=== PATIENT | female | born 1945 | race Caucasian/White ===

== ENCOUNTER 2017-08-06 15:09 | Inpatient (IN) | payer OTHER ==
[~2017-08-06] VITALS: Ht 160 cm; Wt 88.6 kg
[~2017-08-06 15:09] MED LIST: ADVIN25/60 INH; ALBU1AER9 INH; ALPR-411 PO; AMLO2.5T PO; ASPI-232 PO; ATOR10TA88 PO; ATV1 PO; BUPR100T5 PO; CALCTAB5 PO; CARI350T28 PO; CLOP1TAB15 PO; DOCU100C PO; GABA-113 PO; HYDR-3983 PO; LOSA1TAB38 PO; MAGN400T6 PO; METO50TA16 PO; MONT1TAB3 PO; MULT-506 PO; NXM/40 PO; RXC5 PO; TRAM-10 PO; ZNTT/150 PO
[2017-08-06 19:10] VITALS: BP 125/79; PULSE 76; TEMP 37.3; O2SAT 93
[2017-08-06] MEDS ORDERED: MAGNESIUM HYDROXIDE SUSP 30 ML UDC PO PRN (19:15)
[2017-08-06] MEDS ORDERED: POLYETHYLENE (MIRALAX) 17 GM PACK PO PRN (19:15)
[2017-08-06] MEDS ORDERED: ALUMINUM/MAGNESIUM/SIMETH (MAALOX MAX) 30 ML UDC PO PRN (19:15)
[2017-08-06] MEDS ORDERED: ALPRAZOLAM 0.5 MG TAB PO PRN (19:15)
[2017-08-06] MEDS ORDERED: ZOLPIDEM TARTRATE 5 MG TAB PO PRN (19:15)
[2017-08-06] MEDS ORDERED: NITROGLYCERIN 0.4 MG SL PER TAB CHARGE SL PRN (19:15)
[2017-08-06] MEDS ORDERED: ACETAMINOPHEN 325 MG TAB PO PRN (19:15)
[2017-08-06] MEDS ORDERED: ALBUTEROL HFA 8 GM INHALER INH PRN (19:15)
[2017-08-06] MEDS ORDERED: CARISOPRODOL 350 MG TAB PO PRN (19:15)
[2017-08-06] MEDS ORDERED: PATIENT'S HEIGHT AND/OR WEIGHT NEEDED SCH (19:30)
[2017-08-06] MEDS ORDERED: SODIUM CHLORIDE 0.9% 1000ML 1,000 ML IV SCH (19:30)
[2017-08-06] MEDS ORDERED: VANCOMYCIN INJ 1,000 MG in SODIUM CHLORIDE 0.9% 250ML 250 ML IV SCH ×2 (19:30→21:00)
[2017-08-06 19:32] VITALS: BP 124/77; PULSE 69; TEMP 36.8; O2SAT 98; Ht 160 cm; Wt 88.6 kg
[2017-08-06] MEDS ORDERED: GABA1CAP4 PO (19:35)
[2017-08-06] MEDS ORDERED: SYMIN160 INH (19:38)
[2017-08-06] MEDS ORDERED: ATRINS NEB (19:38)
[2017-08-06] MEDS ORDERED: TIOT1AER2 INH (19:38)
[2017-08-06] MEDS ORDERED: CHOL20007 PO (19:38)
--- NOTE | 2017-08-06 19:40 | DIAGNOSTIC IMAGING REPORT ---
CHEST ONE VIEW PORTABLE CLINICAL HISTORY: sob /CHEST TUBE PLACEMENT dyspnea. Tube position. COMPARISON STUDY: 04/15/2015 FINDINGS: Placement of a left-sided chest tube. Bulk of the tube appears to be extrathoracic. There is a kink in the tubing superior margin adjacent to the anterior aspect of left second rib. There is no evidence pneumothorax. Subcutaneous emphysematous changes are noted.. There is a parenchymal infiltrate left lung base. Lungs otherwise appear clear. IMPRESSION: Left-sided chest tube placement with the tube possibly outside of the chest wall cavity in the left. Kink of the tube at its superior margin. Considerable subcutaneous emphysematous change. Parenchymal infiltrate left base. This tube should be repositioned. The above report was generated using voice recognition software. It may contain grammatical, syntax or spelling errors. Electronically signed by: Brandon Unger M.D. 08/06/2017 7:39 PM Dictated Date/Time: 08/06/2017 7:37 PM
[2017-08-06] MEDS ORDERED: NURSING VERBAL MED ORDER ONE (19:45)
[2017-08-06 19:51] LABS: BASO % 0.3 %; BASO ABS # 0.04 K/uL (0-0.2); EOS % 2.5 %; HEMATOCRIT 37.4 % (37-47); IG% 0.3 %; MEAN CELL VOLUME 92.3 fL (80-100); MEAN CORPUSCULAR HEMOGLOBIN 31.9 pg (25-34); MEAN PLATELET VOLUME 9.2 fL (7.4-10.4); MONO % 7.7 %; NEUT % 74.2 %; PLATELET COUNT 328 K/uL (130-400); RED BLOOD COUNT 4.05 M/uL (4.2-5.4); WHITE BLOOD COUNT 15.33 K/uL (4.8-10.8)
[2017-08-06] MEDS: LORAZEPAM 1 MG TAB PO PRN (19:54)
[2017-08-06] MEDS ORDERED: MoRPHine SULFATE 2 MG/ML CARP IV PRN (20:00)
[2017-08-06] MEDS ORDERED: AZTREONAM CONSULT ACTIVE PRN ×2 (20:00)
[2017-08-06] MEDS ORDERED: AZTREONAM IV 2,000 MG in DEXTROSE 5% 100ML 100 ML IV SCH (20:00)
[2017-08-06] MEDS ORDERED: MoRPHine SULFATE 2 MG/ML CARP IV ONE (20:00)
[2017-08-06 20:01] LABS: PROTHROMBIN TIME (PATIENT) 10.7 SECONDS (9.0-12.0)
[2017-08-06 20:14] LABS: COMPLETE YES; MEAN CORPUSCULAR HGB CONC 34.5 g/dl (32-36)
[2017-08-06] MEDS ORDERED: CONSULT PHARMACY STA (20:16)
[2017-08-06 20:18] LABS: BUN/CREATININE RATIO 9.2 (10-20); CALCIUM 9.1 mg/dl (8.5-10.1); CREATININE 0.78 mg/dl (0.60-1.20); POTASSIUM 3.2 mmol/L (3.5-5.1)
[2017-08-06] MEDS ORDERED: HYDROmorphone INJ 0.5 MG/0.5 ML SYR IV ONE (20:30)
[2017-08-06] MEDS ORDERED: LEVALBUTEROL/IPRATROPIUM NEB INH SCH (21:00)
[2017-08-06] MEDS ORDERED: NICOTINE 14 MG/24 HR TDSY TD ONE (21:27)
--- NOTE | 2017-08-06 21:56 | History and Physical ---
History & Physical Date & Time of Service: Aug 06, 2017 at 21:56 Chief Complaint: Pneumothorax, Chest Tube, L Lung Absess Primary Care Physician: Kayla Villafana History of Present Illness Source: patient, clinic records, hospital records 71 year old female with history of CAD/CABG, HTN, COPD presenting with left sided chest pain. Patient was at her usual state of health until a few weeks ago when she started to have dry cough. She was then prescribed by her PCP a course of Prednisone and Azithromycin. As per patient, her symptoms have improved since then but then had increasing cough the past few days. Last night, the patient was coughing and suddenly had left sided chest pain - felt a like a pulled muscle so she applied Aspercream with some improvement. This morning the pain and cough persisted prompting consult at the [facility]. She was found to have by CXR a left sided pneumothorax with left loculated effusion. A chest tube was placed and patient requested transfer to [facility]. Patient received with stable VS, more than 90% on 2 liters nasal cannula. Repeat CXR showed : Left-sided chest tube placement with the tube possibly outside of the chest wall cavity in the left. Kink of the tube at its superior margin. Considerable subcutaneous emphysematous change. Parenchymal infiltrate left base. This tube should be repositioned. On exam, patient seen resting in bed, not in respiratory distress, no accessory muscles, speaks in sentences with no effort. Main symptom is pain on the chest tube insertion site. Denies other symptoms Past Medical/Surgical History Medical Problems: (1) Bronchitis Status: Chronic (2) Heart disease Status: Chronic (3) Hypertension Status: Chronic (4) Lumbar stenosis with neurogenic claudication Status: Resolved (5) Post-operative pain Status: Resolved (6) Stomach problems Status: Chronic Surgical Problems: (1) H/O heart surgery Status: Resolved (2) H/O laminectomy Status: Resolved (3) H/O: hysterectomy Status: Resolved Family History FH: diabetes mellitus FH: heart disease FH: hypertension FH: lung disease Social History Smoking Status: Current Every Day Smoker Smokeless Tobacco Use: No Alcohol Use: none Drug Use: none Marital Status: Housing status: lives with family Occupational Status: retired Allergies Coded Allergies: Cephalexin (Verified Allergy, Mild, Hives, 06/29/15) Adhesives (Verified Allergy, Unknown, RASH, 06/29/15) Penicillins (Verified Allergy, Unknown, ., 06/29/15) Sulfa Antibiotics (Verified Allergy, Unknown, ., 06/29/15) Vancomycin (Verified Allergy, Unknown, RASH, 08/06/17) Oxycodone (Verified Adverse Reaction, Unknown, itchy TO ROXICET. Takes oxycodone at home., 08/06/17) Home Medications Scheduled Amlodipine (Norvasc), 2.5 MG PO QAM Aspirin (Aspir-81), 81 MG PO HS Atorvastatin (Lipitor), 10 MG PO HS Budesonide/Formoterol Fumarate (Symbicort 160/4.5 Inhaler ), 2 PUFFS INH BID Cholecalciferol (Vitamin D3), 1 TAB PO DAILY Clopidogrel (Plavix), 75 MG PO QAM Docusate Sodium (Stool Softener), 200 MG PO DAILY Esomeprazole Magnesium (Nexium), 40 MG PO DAILY Gabapentin (Gabapentin), 1 CAP PO QID Ipratropium [place] (Ipratropium [place]), 1 VIAL NEB QID Losartan Potassium (Cozaar), 100 MG PO QAM Magnesium Oxide (Mag-Ox), 400 MG PO BID Metoprolol Tartrate (Lopressor) (Lopressor), 50 MG PO BID Montelukast Sodium (Singulair), 10 MG PO HS Multivitamin (Multivitamin), 1 TAB PO QAM Ranitidine (Zantac), 150 MG PO HS Scheduled PRN Albuterol (Proair Hfa), 2 PUFFS INH Q4 PRN for SOB/Wheezing Alprazolam (Alprazolam), 0.5 MG PO HS PRN for Anxiety Carisoprodol (Soma), 350 MG PO TID PRN for Muscle Spasms Oxycodone HCl (Oxycodone HCl), 5 MG PO Q4H PRN for moderate pain (pain scale 4-6 ) Miscellaneous Medications Tiotropium [place] (Spiriva Respimat), 1 PUFF INH Review of Systems Constitutional- no fever; no weight loss Eyes- no acute visual changes ENT- no sinus drainage; no pharyngitis Pulmonary- (+) as noted above Cardiac- no chest pain, no palpitations, no orthopnea, no dependent edema GI- no nausea, no vomiting, no diarrhea, no melena, no hematochezia - no dysuria, no hematuria Musculoskeletal- no arthralgias, no myalgias Derm- no rashes, no new skin lesions, no changing skin lesions Hematologic- no unusual bruising, no unusual bleeding Lymphatics- no adenopathy Endocrine- no polyuria or polydipsia; no heat or cold intolerance Neuro- no headaches, no focal neurologic symptoms Psych- no anxiety, no depression Physical Exam Vital Signs Date Time Temp Pulse Resp B/P (MAP) Pulse Ox O2 Delivery O2 Flow Rate FiO2 08/06/17 19:32 36.8 69 22 124/77 98 Nasal Cannula 2.0 08/06/17 19:10 37.3 76 21 125/79 (94) 93 Nasal Cannula 3.5 General Appearance: WD/WN, no apparent distress Head: normocephalic, atraumatic Eyes: normal inspection, EOMI, sclerae normal ENT: normal ENT inspection, hearing grossly normal, pharynx normal Neck: supple, no adenopathy, thyroid normal, no JVD, trachea midline Respiratory/Chest: + pertinent finding ((+) chest tube inserted on the left chest wall, no signs of active bleeding; (+) mild wheeze and rales bilateral bases right >left) Cardiovascular: regular rate, rhythm, no edema, no JVD, no murmur Abdomen/GI: normal bowel sounds, non tender, soft, no organomegaly Back: normal inspection, no CVA tenderness Extremities/Musculoskelatal: normal inspection, no calf tenderness, normal capillary refill, no pedal edema Neurologic/Psych: boiling off winder II-XII nml as tested, no motor/sensory deficits, alert, normal mood/affect, oriented x 3 Skin: normal color, warm/dry, no rash Lymphatic: no adenopathy Diagnostics Laboratory Results Results Past 24 Hours Test 08/06/17 19:02 08/06/17 19:31 08/06/17 19:37 Range/Units White Blood Count 15.33 4.8-10.8 K/uL Red Blood Count 4.05 4.2-5.4 M/uL Hemoglobin 12.9 12.0-16.0 g/dL Hematocrit 37.4 37-47 % Mean Corpuscular Volume 92.3 80-100 fL Mean Corpuscular Hemoglobin 31.9 25-34 pg Mean Corpuscular Hemoglobin Concent 34.5 32-36 g/dl Platelet Count 328 130-400 K/uL Mean Platelet Volume 9.2 7.4-10.4 fL Neutrophils (%) (Auto) 74.2 % Lymphocytes (%) (Auto) 15.0 % Monocytes (%) (Auto) 7.7 % Eosinophils (%) (Auto) 2.5 % Basophils (%) (Auto) 0.3 % Neutrophils # (Auto) 11.38 1.4-6.5 K/uL Lymphocytes # (Auto) 2.30 1.2-3.4 K/uL Monocytes # (Auto) 1.18 0.11-0.59 K/uL Eosinophils # (Auto) 0.38 0-0.5 K/uL Basophils # (Auto) 0.04 0-0.2 K/uL RDW Standard Deviation 45.3 36.4-46.3 fL RDW Coefficient of Variation 13.4 11.5-14.5 % Immature Granulocyte % (Auto) 0.3 % Immature Granulocyte # (Auto) 0.05 0.00-0.02 K/uL Prothrombin Time 10.7 9.0-12.0 SECONDS Prothromb Time International Ratio 1.0 0.9-1.1 Sodium Level 136 136-145 mmol/L Potassium Level 3.2 3.5-5.1 mmol/L Chloride Level 99 98-107 mmol/L Carbon Dioxide Level 29 21-32 mmol/L Anion Gap 8.0 3-11 mmol/L Blood Urea Nitrogen 7 7-18 mg/dl Creatinine 0.78 0.60-1.20 mg/dl Est Creatinine Clear Calc Drug Dose 69.2 ml/min Estimated GFR () 89.3 Estimated GFR (Non- 77.0 BUN/Creatinine Ratio 9.2 10-20 Random Glucose 121 70-99 mg/dl Calcium Level 9.1 8.5-10.1 mg/dl Total Bilirubin 0.6 0.2-1 mg/dl Aspartate Amino Transf (AST/SGOT) 13 15-37 U/L Alanine Aminotransferase (ALT/SGPT) 15 12-78 U/L Alkaline Phosphatase 102 45-117 U/L Total Protein 6.7 6.4-8.2 gm/dl Albumin 3.4 3.4-5.0 gm/dl Globulin 3.3 2.5-4.0 gm/dl Albumin/Globulin Ratio 1.0 0.9-2 Lactic Acid Level 1.1 0.4-2.0 mmol/L Microbiology Results 08/06/17 Blood Culture, Received Pending 08/06/17 Blood Culture, Received Pending 08/06/17 MRSA DNA Surveillance Screen, Ordered Pending 08/06/17 Gram Stain, Ordered Pending 08/06/17 Sputum Culture, Ordered Pending Diagnostic Radiology per H&P Impression Assessment and Plan 71 year old female with history of CAD/CABG, HTN, COPD presenting with left sided chest pain. LEFT SIDED PNEUMOTHORAX LEFT LOWER LOBE PNEUMONIA VS. EFFUSION - HD stable, maintaining adequate oxygenation on 2 liters NC no dyspnea - may need chest tube removal and reinsertion - discussed with Dr. Duncan CT chest stat ordered - will start Doxy + Aztreonam, Solumedrol 40mg q8h, Nebs q4h - monitor in Tele COPD - possible mild COPD exacerbation - management as noted above CAD/CABG - hold ASA, Plavix for chest tube insertion - continue Losartan, Metoprolol - hold Lasix for now HTN - continue Losartan, Metoprolol - hold Lasix for now DVT PROPHYLAXIS SCDs for now FULL CODE PER PATIENT DISPOSITION anticipate d/c home when medically stable Advanced Directives Existing Living Will: No Existing Power of Speech Therapist Technician: No VTE Prophylaxis VTE Risk Assessment Done? Y/N: Yes Risk Level: Moderate Given or contraindicated: SCD's
[2017-08-06] MEDS: METOPROLOL TARTRATE 50 MG TAB PO SCH (22:00)
[2017-08-06] MEDS ORDERED: METHYLPREDNISOLONE IV 40 MG in SYRINGE 0 ML IV SCH (22:00)
[2017-08-06] MEDS ORDERED: DOXYCYCLINE IV 100 MG in DEXTROSE 5% 100ML 100 ML IV SCH (22:00)
--- NOTE | 2017-08-06 22:00 | DIAGNOSTIC IMAGING REPORT ---
(CHEST) THORAX WITHOUT CT DOSE: 527.16 mGy.cm HISTORY: Tube position pneumothorax, s/p chest tube placement TECHNIQUE: Multiaxial CT images of the chest were performed without contrast. A dose lowering technique was utilized adhering to the principles of ALARA. COMPARISON: None. FINDINGS: There is a left-sided chest tube. The tube is extrinsic to the left chest wall. It contains a kink in its distal aspect as well as a kink medially deep to its insertion site. The entirety of the catheter is within the chest wall laterally. This catheter should be removed. There is a left-sided pneumothorax as well as a small left effusion. Estimated volume is approximately 30%. There is no significant cardiomediastinal silhouette shift. IMPRESSION: 1. Left-sided chest tube is located entirely within the subcutaneous fat and soft tissues of the chest wall itself.. 2. There is no evidence for extension of any component of tube to the chest cavity itself. 3. 30% left-sided pneumothorax. 4. Extensive subcutaneous emphysema over the left hemithorax. 5. The chest tube within the soft tissues contains at least 2 kinks 6. This tube should be removed 7. Small left effusion with partial left lower lobe atelectatic change. The above report was generated using voice recognition software. It may contain grammatical, syntax or spelling errors. Electronically signed by: Brandon Unger M.D. 08/06/2017 9:59 PM Dictated Date/Time: 08/06/2017 9:55 PM
[2017-08-06] MEDS: FLUTICASONE/SALMETEROL 250/50 (ADVAIR) 14 PUFF/1 INHALER INH SCH (22:18)
[2017-08-06] MEDS ORDERED: KETOROLAC TROMETHAMINE 15 MG/ML VIAL IV. STA (23:00)
[2017-08-06] MEDS ORDERED: LIDOCAINE HCL 2% LOCAL 50ML VIAL ONE (23:24)
[2017-08-06] MEDS ORDERED: MIDAZOLAM HCL 5 MG/ML 1 ML VIAL ONE (23:34)
[2017-08-07] VITALS (15 sets, daily range): BP systolic 124–168; BP diastolic 70–87; PULSE 68–88; TEMP 36.6–37.2; O2SAT 91–98
[2017-08-07] MEDS: METOPROLOL TARTRATE 50 MG TAB PO SCH ×3 (00:34→15:18)
[2017-08-07] MEDS: RANITIDINE HCL 150 MG TAB PO SCH ×2 (00:34→21:23)
[2017-08-07] MEDS: BuPROPion SR 100 MG TABCR PO SCH ×4 (00:34→21:00)
[2017-08-07] MEDS: GABAPENTIN 300 MG CAP PO SCH ×4 (00:35→21:23)
[2017-08-07] MEDS: MONTELUKAST SOD 10 MG TAB PO SCH ×2 (00:35→21:23)
[2017-08-07] MEDS: MAGNESIUM OXIDE 400 MG TAB PO SCH ×3 (00:35→21:23)
[2017-08-07] MEDS: ATORVASTATIN 10 MG TAB PO SCH ×2 (00:36→21:23)
--- NOTE | 2017-08-07 00:39 | Procedure Note ---
Procedure Note Date of Service Aug 07, 2017. Procedure Note Procedures: Chest tube left hemithorax Consent: obtained via the patient and placed into the chart Pre-Procedural Dx: Pneumothorax associated with pulmonary abscess Post-Procedural Dx: Pneumothorax associated with pulmonary abscess Analgesia: 12cc of 2% Liquid Lidocaine Procedure: The patient was initially placed in a right lateral decubitus position and chlorhexidine was used for sterilization. With this the initial chest tube the patient had was removed. The patient was then draped instead prepped in a sterile fashion. The initial incision site from the previous intervention was approximately 10centimeters in length. It was located along the anterior mid axillary line approximately the 7th intercostal space. Due to this I did use lidocaine slowly and then dissect through the fat muscular planes down to the rib. I then injected between the 7th and 8th rib and along the pleural surface. Was then able to introduce the Achilles into the thoracic cavity in heard a flush of air. Following this I placed a a 20 Persian chest tube in anterior lateral medial position to approximately 18 cm at the skin. I then used 0 silk along with 1 0 silk and then to ethylene/final sutures. These were placed in a vertical mattress style to close up the entire wound. EBL: 8 cc Complications: Postoperative chest x-ray showed chest tube in anterior medial direction with the lung re-expanded. No complications were noted.
--- NOTE | 2017-08-07 00:54 | Pulmonary Consultation ---
History General Date of Service: Aug 07, 2017. Stated Complaint: Pneumothorax, Chest Tube, L Lung Absess HPI The patient is a 71 year old female who presents to [facility] with complaints of Pneumothorax, Chest Tube, L Lung Absess. The patient' s primary care provider is Kayla Villafana. 71-year-old female who presented to [facility] with acute onset pleuritic-type chest pain was noted to have a spontaneous pneumothorax with associated pulmonary abscess. The patient had only giving complaining of the pleurisy and not notable shortness of breath. At the [facility] chest tube was inserted in the patient was then transferred to the [facility]. On evaluation with chest x-ray on her arrival it was noted that the chest tube did not appear to be within the thoracic cavity but external to the ribs. A noncontrast CT to was obtained in prove this to be the case. I then went to see the patient in during our interview she noted left- sided chest pain not pleuritic in nature but it did appear exacerbated with movement. She denied fever, chills, pleurisy, classic cardiac chest pain, productive cough or unintentional weight loss over the last 2-7 days. Workup WBC: 15K [Neut#: 11.38 & Bucks#1.18] Hgb: 13 Plt: 328 INR: 1.0 PT: 10.7 K+: 3.2 BUN: 7 Cr: 0.78 CXR 08/06/2017 compared to 04/15/2015 Subcutaneous air, left-sided chest tube kinked at the apices, questionable intra-thoracic placement, right hilar surgical clips, sternal wires UA: Pending Microbiology pending: MRSA nasal swab, blood x2, expectorated sputum Review of Systems Constitutional: reports: weakness Eyes: reports: no symptoms ENT: reports: no symptoms Cardiovascular: reports: as stated in HPI Respiratory: reports: as stated in HPI Gastrointestinal: reports: no symptoms Genitourinary - Female: reports: no symptoms Musculoskeletal: reports: as stated in HPI Integumentary: reports: other (Dry mouth) Neurologic: reports: no symptoms Psychiatric: reports: anxiety Hematologic / Lymphatic: no symptoms Allergic / Immunologic: no symptoms Past Medical History Past Medical History: 1. Spinal stenosis at L4-5 and L5-S1 2. COPD 3. Arthritis 4. Hypertension 5. GERD 6. Hypercholesterolemia 7. Seroma of the right leg 8. Atrial myxoma Past Surgical History: 1. Atrial myxoma resection and bypass x1 vessel 2. Back surgery 1992 3. Tonsillectomy 4. Hysterectomy 5. Lumbar decompression level L4-5 and L5-S1 6. Evacuation of seroma along with fusion and revision: L4-5 and L5-S1 (2014) 7. Revision with decompression: L3-4,L4-5<L5-S1 (05/13/2015) Family History FH: diabetes mellitus FH: heart disease FH: hypertension FH: lung disease Diabetes Coronary artery disease Alcoholism Mental disorders/Suicide Social History Hx Tobacco Use In Past Year?: Yes Smoking Status: Current Every Day Smoker Marital status: Housing status: lives with family Occupational Status: retired Allergies Coded Allergies: Cephalexin (Verified Allergy, Mild, Hives, 06/29/15) Adhesives (Verified Allergy, Unknown, RASH, 06/29/15) Penicillins (Verified Allergy, Unknown, ., 06/29/15) Sulfa Antibiotics (Verified Allergy, Unknown, ., 06/29/15) Vancomycin (Verified Allergy, Unknown, RASH, 08/06/17) Oxycodone (Verified Adverse Reaction, Unknown, itchy TO ROXICET. Takes oxycodone at home., 08/06/17) Current Medications Reported Home Medications Medications Dose Route/Sig Max Daily Dose Days Date Category Ipratropium [place] 0.5 Mg/2.5 Ml Nebu 1 Vial NEB QID 30 08/06/17 Reported Spiriva Respimat (Tiotropium [place]) 1.25 Mcg/Act Aer 1 Puff INH 08/06/17 Reported Symbicort 160/4.5 Inhaler (Budesonide/Formoterol Fumarate) Aero 2 Puffs INH BID 08/06/17 Reported Vitamin D3 (Cholecalciferol) 2,000 Unit Tab 1 Tab PO DAILY 30 08/06/17 Reported Gabapentin 300 Mg Cap 1 Cap PO QID 30 08/06/17 Reported Oxycodone HCl 5 Mg Tab 5 Mg PO Q4H PRN 07/01/15 Rx Stool Softener (Docusate Sodium) 100 Mg Cap 200 Mg PO DAILY 06/29/15 Reported Nexium (Esomeprazole Magnesium) 40 Mg Capcr 40 Mg PO DAILY 06/29/15 Reported Soma (Carisoprodol) 350 Mg Tab 350 Mg PO TID PRN 05/24/15 Reported Multivitamin (Multivitamins) Tab 1 Tab PO QAM 04/15/15 Reported Alprazolam 0.5 Mg Tab 0.5 Mg PO HS PRN 04/15/15 Reported Mag-Ox (Magnesium Oxide) 400 Mg Tab 400 Mg PO BID 04/15/15 Reported Zantac (Ranitidine HCl) 150 Mg Tab 150 Mg PO HS 04/15/15 Reported Lipitor (Atorvastatin Calcium) 10 Mg Tab 10 Mg PO HS 04/15/15 Reported Aspir-81 (Aspirin) 81 Mg Tab 81 Mg PO HS 04/15/15 Reported Singulair (Montelukast Sodium) 10 Mg Tab 10 Mg PO HS 04/15/15 Reported Proair Hfa (Albuterol) Aers 2 Puffs INH Q4 PRN 04/15/15 Reported Lopressor (Metoprolol Tartrate) 50 Mg Tab 50 Mg PO BID 04/15/15 Reported Plavix (Clopidogrel Bisulfate) 75 Mg Tab 75 Mg PO QAM 04/15/15 Reported Cozaar (Losartan Potassium) 100 Mg Tab 100 Mg PO QAM 04/15/15 Reported Norvasc (Amlodipine Besylate) 2.5 Mg Tab 2.5 Mg PO QAM 04/15/15 Reported Physical Physical Exam Vital Signs: Date Time Temp Pulse Resp B/P (MAP) Pulse Ox O2 Delivery O2 Flow Rate FiO2 08/06/17 19:32 36.8 69 22 124/77 98 Nasal Cannula 2.0 08/06/17 19:10 37.3 76 21 125/79 (94) 93 Nasal Cannula 3.5 General Appearance: uncomfortable, moderate distress Head: NORMOCEPHALIC, ATRAUMATIC Eyes: PERRLA, NO DISCHARGE, EOMI, SCLERAE NORMAL, CONJUNCTIVAE NORMAL ENT: NORMAL EAR EXAM, NORMAL NASAL EXAM, NORMAL MOUTH EXAM, NORMAL THROAT EXAM , NORMAL DENTAL EXAM Neck: NORMAL RANGE OF MOTION, NO TENDERNESS, TRACHEA MIDLINE, NO STRIDOR Respiratory: other (Clear to auscultation on the right side, decreased breath sounds on the left side with large 10-12 centimeter incision approximately 7th intercostal space between the mid axillary and 2-3 centimeters more medial than the anterior axillary line. There is no active signs of infection and no active bleeding) Cardiovasular: REGULAR RATE/RHYTHM, NORMAL S1S2, NO M/G/R, NO MURMUR, NO GALLOP Abdomen: NON TENDER, NORMAL BOWEL SOUNDS, NO REBOUND, NO MASSES, NO GUARDING, NO ORGANOMEGALY, NORMAL RECTAL EXAM Genitourinary - Female: EXTERNAL GENITALIA NORMAL Back: NORMAL INSPECTION, NO MIDLINE TENDERNESS, NO CVA TENDERNESS, NO PARAVERTEBRAL TTP Upper Extremities: NO EDEMA, NO DEFORMITY, NORMAL ROM Lower Extremities: NO EDEMA, NO DEFORMITY, NORMAL ROM Pulses: carotid (R) (2+), carotid (L) (2+), dorsalis pedis (R) (2+), dorsalis pedis (L) (2+) Neuro: ALERT, ORIENTED x 3, NORMAL MOTOR EXAM, NORMAL SENSATION Diagnostics Labs Results Past 24 Hours Test 08/06/17 19:31 08/06/17 19:37 Range/Units White Blood Count 15.33 4.8-10.8 K/uL Red Blood Count 4.05 4.2-5.4 M/uL Hemoglobin 12.9 12.0-16.0 g/dL Hematocrit 37.4 37-47 % Mean Corpuscular Volume 92.3 80-100 fL Mean Corpuscular Hemoglobin 31.9 25-34 pg Mean Corpuscular Hemoglobin Concent 34.5 32-36 g/dl Platelet Count 328 130-400 K/uL Mean Platelet Volume 9.2 7.4-10.4 fL Neutrophils (%) (Auto) 74.2 % Lymphocytes (%) (Auto) 15.0 % Monocytes (%) (Auto) 7.7 % Eosinophils (%) (Auto) 2.5 % Basophils (%) (Auto) 0.3 % Neutrophils # (Auto) 11.38 1.4-6.5 K/uL Lymphocytes # (Auto) 2.30 1.2-3.4 K/uL Monocytes # (Auto) 1.18 0.11-0.59 K/uL Eosinophils # (Auto) 0.38 0-0.5 K/uL Basophils # (Auto) 0.04 0-0.2 K/uL RDW Standard Deviation 45.3 36.4-46.3 fL RDW Coefficient of Variation 13.4 11.5-14.5 % Immature Granulocyte % (Auto) 0.3 % Immature Granulocyte # (Auto) 0.05 0.00-0.02 K/uL Prothrombin Time 10.7 9.0-12.0 SECONDS Prothromb Time International Ratio 1.0 0.9-1.1 Sodium Level 136 136-145 mmol/L Potassium Level 3.2 3.5-5.1 mmol/L Chloride Level 99 98-107 mmol/L Carbon Dioxide Level 29 21-32 mmol/L Anion Gap 8.0 3-11 mmol/L Blood Urea Nitrogen 7 7-18 mg/dl Creatinine 0.78 0.60-1.20 mg/dl Est Creatinine Clear Calc Drug Dose 69.2 ml/min Estimated GFR () 89.3 Estimated GFR (Non- 77.0 BUN/Creatinine Ratio 9.2 10-20 Random Glucose 121 70-99 mg/dl Calcium Level 9.1 8.5-10.1 mg/dl Total Bilirubin 0.6 0.2-1 mg/dl Aspartate Amino Transf (AST/SGOT) 13 15-37 U/L Alanine Aminotransferase (ALT/SGPT) 15 12-78 U/L Alkaline Phosphatase 102 45-117 U/L Total Protein 6.7 6.4-8.2 gm/dl Albumin 3.4 3.4-5.0 gm/dl Globulin 3.3 2.5-4.0 gm/dl Albumin/Globulin Ratio 1.0 0.9-2 Lactic Acid Level 1.1 0.4-2.0 mmol/L Microbiology Results 08/06/17 Blood Culture, Received Pending 08/06/17 Blood Culture, Received Pending 08/06/17 MRSA DNA Surveillance Screen, Ordered Pending 08/06/17 Gram Stain, Ordered Pending 08/06/17 Sputum Culture, Ordered Pending Diagnostic Radiology CXR 08/06/2017 compared to 04/15/2015 Subcutaneous air, left-sided chest tube kinked at the apices, questionable intra-thoracic placement, right hilar surgical clips, sternal wires Chest x-ray post procedure Chest tube in an anterior middle position with re-expansion of the left hemithorax Impression Assessment and Plan 71-year-old female with pulmonary abscess and associated pneumothorax: 1. Pneumothorax: Patient currently has a [address] in place with good re-expansion of the lung by chest x-ray. Will continue to monitor the patient for possible bronchopleural fistula. 2. Pulmonary Abscess: As the patient has a penicillin allergy the next drugs of choice would be carbapenem based such as imipenem are meropenem. At this time I will consult Infectious Disease for further guidance. Patient is currently treated with aztreonam. As well as consult in idea believe we should consult thoracic surgery as there is a high risk that this patient will require resection. 3. COPD: Patient does have a history of COPD currently treated with Advair, Singulair and Spiriva. In the hospital she is currently on methylprednisolone 40 mg every 8 hours. I will discontinue her methylprednisolone at this time she is not having an active COPD exacerbation and steroids might increase her risk of infection as well as create poor wound healing.
[2017-08-07] MEDS: OXYCODONE HCL IR 5 MG TAB (IMMEDIATE RELEASE) PO PRN ×4 (01:31→22:45)
[2017-08-07] MEDS ORDERED: NURSING VERBAL MED ORDER ONE ×3 (02:00→11:00)
[2017-08-07] MEDS ORDERED: MIDAZOLAM HCL 1 MG/ML 2ML VIAL IV STA (02:04)
[2017-08-07] MEDS ORDERED: LEVALBUTEROL 1.25MG/0.5ML NEB INH SCH (03:00)
[2017-08-07] MEDS ORDERED: IPRATROPIUM BROMIDE NEB SOLN 0.02% 2.5 ML VIAL INH SCH (03:00)
[2017-08-07] MEDS: IPRATROPIUM BROMIDE NEB SOLN 0.02% 2.5 ML VIAL INH SCH ×6 (03:20→23:07)
[2017-08-07] MEDS: LEVALBUTEROL 1.25MG/0.5ML NEB INH SCH ×6 (03:20→23:07)
[2017-08-07 05:41] LABS: HEMATOCRIT 38.2 % (37-47); MEAN CELL VOLUME 91.4 fL (80-100); MEAN CORPUSCULAR HEMOGLOBIN 30.6 pg (25-34); MEAN CORPUSCULAR HGB CONC 33.5 g/dl (32-36); MEAN PLATELET VOLUME 9.2 fL (7.4-10.4); PLATELET COUNT 323 K/uL (130-400); RED BLOOD COUNT 4.18 M/uL (4.2-5.4); WHITE BLOOD COUNT 14.28 K/uL (4.8-10.8)
[2017-08-07] MEDS ORDERED: AZTREONAM IV 1,000 MG in DEXTROSE 5% 100ML 100 ML IV SCH (06:00)
[2017-08-07] MEDS: KETOROLAC TROMETHAMINE 15 MG/ML VIAL IV. SCH ×3 (06:16→17:57)
[2017-08-07 06:17] LABS: BUN/CREATININE RATIO 12.4 (10-20); CALCIUM 9.1 mg/dl (8.5-10.1); CREATININE 0.8 mg/dl (0.60-1.20); MAGNESIUM 1.8 mg/dl (1.8-2.4); POTASSIUM 3.6 mmol/L (3.5-5.1)
[2017-08-07] MEDS ORDERED: IMIPENEM/CILASTATIN CONSULT ACTIVE PRN (06:24)
--- NOTE | 2017-08-07 06:58 | DIAGNOSTIC IMAGING REPORT ---
CHEST ONE VIEW PORTABLE CLINICAL HISTORY: 71 years-old Female presenting with chest tube placement . TECHNIQUE: Portable upright AP view of the chest was obtained. COMPARISON: 08/06/2017. FINDINGS: Median sternotomy wires intact. Atherosclerosis of the aortic arch. Cardiac silhouette grossly normal allowing for partial obscuration of the apex. Surgical clips project over the right mid lung. The previously noted large bore left pleural drain has been replaced or repositioned, now terminating in the paramediastinal left apex. Associated extensive soft tissue emphysema along the left lateral chest wall and left base of the neck. Trace left apical pneumothorax persists. Extensive left basilar opacity stable to slightly increased from prior. Right lung and pleural space clear. Osseous structures normal. Upper abdomen normal. IMPRESSION: 1. Interval replacement or repositioning of the large bore left pleural drain, which now terminates appropriately near the left apex. Trace left pneumothorax persists. 2. Stable to slightly increased left basilar opacity concerning for pneumonia. Electronically signed by: Chi Gonzalez M.D. 08/07/2017 6:57 AM Dictated Date/Time: 08/07/2017 6:54 AM
--- NOTE | 2017-08-07 07:15 | DIAGNOSTIC IMAGING REPORT ---
CHEST ONE VIEW PORTABLE CLINICAL HISTORY: PNEUMOTHORAX COMPARISON STUDY: 08/07/2017 FINDINGS: There are postsurgical changes of a midline sternotomy. The left-sided pleural drain remains unchanged in position. There is persistent left-sided subcutaneous emphysema. No pneumothorax is visualized. Left basal airspace opacities persist the right lung remains clear[ IMPRESSION: 1. No significant change in the position of the left-sided pleural drain, the tip of which projects over the aortic arch 2. No pneumothorax identified 3. Persistent left-sided subcutaneous emphysema 4. Persistent left basilar airspace opacities Electronically signed by: Aiden Roe M.D. 08/07/2017 7:13 AM Dictated Date/Time: 08/07/2017 7:11 AM
[2017-08-07] MEDS ORDERED: IMIPENEM/CILASTATIN IV 400 MG in DEXTROSE 5% 100ML 100 ML IV SCH (08:00)
[2017-08-07] MEDS: FLUTICASONE/SALMETEROL 250/50 (ADVAIR) 14 PUFF/1 INHALER INH SCH ×2 (08:21→21:00)
[2017-08-07] MEDS: CALCIUM 600MG + VIT D 400 IU TAB PO SCH (08:25)
[2017-08-07] MEDS: MULTIVITAMIN TAB PO SCH (08:25)
[2017-08-07] MEDS: PANTOprazole SOD 40 MG TAB PO SCH (08:25)
[2017-08-07] MEDS: DOCUSATE SODIUM 100 MG CAP PO SCH (08:26)
[2017-08-07] MEDS: LOSARTAN POTASSIUM 50 MG TAB PO SCH (08:27)
[2017-08-07] MEDS: TIOTROPIUM BROMIDE 5 PUFF/90 MCG INH INH SCH (08:28)
[2017-08-07] MEDS: NICOTINE 14 MG/24 HR TDSY TD SCH (08:29)
[2017-08-07] MEDS ORDERED: AMLODIPINE BESYLATE 5 MG TAB PO SCH (09:00)
--- NOTE | 2017-08-07 10:37 | Progress Note ---
Progress Note Date of Service Aug 07, 2017. Progress Note ID Consult Dictated #[id number] A/P: 1. L Effusion - ? infectious -Continue abx, follow culture results -Will follow, thank you
--- NOTE | 2017-08-07 12:42 | Progress Note ---
Internal Med Progress Note Date of Service: Aug 07, 2017. Provider Documentation: SUBJECTIVE: pt found sitting on chair Chest tube repositioned last night denies of any SOB or pain has mild achy discomfort and pain on back chest tube site much improved form the discomfort she had since the initial chest tube no fever or chills has non productive cough OBJECTIVE: Vital Signs-as noted below Exam: General-pleasant , no sign of distress Eyes-sclera non icteric ENT-NAD Neck-no JVD Lungs-diminished, chest tube placed on left side Heart-regular Abdomen-soft, non tender Extremities-no lower ext edema Neuro-AAO x3, no focal deficit Lab data as noted below. ASSESSMENT & PLAN: 71 year old female with history of CAD/CABG, HTN, COPD presenting with left sided chest pain. LEFT SIDED PNEUMOTHORAX LEFT LOWER LOBE PNEUMONIA VS. EFFUSION - chest tube re adjusted last night as initial Chest tube placed in [place] [facility] showed -displaced out of lung cavity , significant left sided sub cutaneous emphysema pt was experiencing severe chest discomfort CT chest shows : 1. Left-sided chest tube is located entirely within the subcutaneous fat and soft tissues of the chest wall itself.. 2. There is no evidence for extension of any component of tube to the chest cavity itself. 3. 30% left-sided pneumothorax. 4. Extensive subcutaneous emphysema over the left hemithorax. 5. The chest tube within the soft tissues contains at least 2 kinks 6. This tube should be removed 7. Small left effusion with partial left lower lobe atelectatic change. appreciate input form Pulmonology Dr Duncan , chest tube repositioned last night -repeat Cxray shows -chest tube in adequate position pt offers no discomfort , concern for loculated infection on left lower lung lobe CT surgery consulted abx coverage broadened to add Imipenem blood culture ordered ID eval requested COPD - hx of chronic tobacco use with underlying emphysema used Symbicort and Spiriva -continued pt mention of sudden onset of left sided chest chest pain with cough possible bullae rupture causing pneumothorax ? has chest tube placement now pulmonology and CT surgery following pt is counselled repeatedly for smoking cessation CAD/CABG - hold ASA, Plavix for chest tube insertion - continue Losartan, Metoprolol - hold Lasix for now in setting of pulmonary infection HTN - continue Losartan, Metoprolol - DVT PROPHYLAXIS SCDs for now-chest tube in position FULL CODE PER PATIENT DISPOSITION anticipate d/c home when medically stable will need PT/OT eval prior to discharge follows with Family practice at [place] area would like to follow up with Pulmonology Dr Duncan in [place] appropriate referral /follow up will be arranged on discharge Vital Signs: Date Time Temp Pulse Resp B/P (MAP) Pulse Ox O2 Delivery O2 Flow Rate FiO2 08/07/17 12:33 36.7 70 20 124/74 (91) 95 Nasal Cannula 4.0 08/07/17 11:13 70 15 94 Nasal Cannula 4.0 08/07/17 08:00 Nasal Cannula 2.0 08/07/17 07:41 36.6 83 20 131/84 (100) 94 Nasal Cannula 2.5 08/07/17 07:16 83 17 91 Nasal Cannula 2.0 08/07/17 04:15 Nasal Cannula 2.0 08/07/17 04:03 36.6 76 18 135/77 (96) 92 Nasal Cannula 2.5 08/07/17 03:21 76 16 98 Nasal Cannula 2.0 08/07/17 00:15 95 Nasal Cannula 2.0 08/07/17 00:15 37.2 88 20 146/87 (106) 92 Nasal Cannula 4.0 08/06/17 19:32 36.8 69 22 124/77 98 Nasal Cannula 2.0 08/06/17 19:10 37.3 76 21 125/79 (94) 93 Nasal Cannula 3.5 Lab Results: Results Past 24 Hours Test 08/06/17 19:31 08/06/17 19:37 08/07/17 05:18 Range/Units White Blood Count 15.33 14.28 4.8-10.8 K/uL Red Blood Count 4.05 4.18 4.2-5.4 M/uL Hemoglobin 12.9 12.8 12.0-16.0 g/dL Hematocrit 37.4 38.2 37-47 % Mean Corpuscular Volume 92.3 91.4 80-100 fL Mean Corpuscular Hemoglobin 31.9 30.6 25-34 pg Mean Corpuscular Hemoglobin Concent 34.5 33.5 32-36 g/dl Platelet Count 328 323 130-400 K/uL Mean Platelet Volume 9.2 9.2 7.4-10.4 fL Neutrophils (%) (Auto) 74.2 % Lymphocytes (%) (Auto) 15.0 % Monocytes (%) (Auto) 7.7 % Eosinophils (%) (Auto) 2.5 % Basophils (%) (Auto) 0.3 % Neutrophils # (Auto) 11.38 1.4-6.5 K/uL Lymphocytes # (Auto) 2.30 1.2-3.4 K/uL Monocytes # (Auto) 1.18 0.11-0.59 K/uL Eosinophils # (Auto) 0.38 0-0.5 K/uL Basophils # (Auto) 0.04 0-0.2 K/uL RDW Standard Deviation 45.3 44.6 36.4-46.3 fL RDW Coefficient of Variation 13.4 13.4 11.5-14.5 % Immature Granulocyte % (Auto) 0.3 % Immature Granulocyte # (Auto) 0.05 0.00-0.02 K/uL Prothrombin Time 10.7 9.0-12.0 SECONDS Prothromb Time International Ratio 1.0 0.9-1.1 Sodium Level 136 134 136-145 mmol/L Potassium Level 3.2 3.6 3.5-5.1 mmol/L Chloride Level 99 98 98-107 mmol/L Carbon Dioxide Level 29 29 21-32 mmol/L Anion Gap 8.0 7.0 3-11 mmol/L Blood Urea Nitrogen 7 10 7-18 mg/dl Creatinine 0.78 0.80 0.60-1.20 mg/dl Est Creatinine Clear Calc Drug Dose 69.2 67.4 ml/min Estimated GFR () 89.3 86.6 Estimated GFR (Non- 77.0 74.7 BUN/Creatinine Ratio 9.2 12.4 10-20 Random Glucose 121 169 70-99 mg/dl Calcium Level 9.1 9.1 8.5-10.1 mg/dl Total Bilirubin 0.6 0.2-1 mg/dl Aspartate Amino Transf (AST/SGOT) 13 15-37 U/L Alanine Aminotransferase (ALT/SGPT) 15 12-78 U/L Alkaline Phosphatase 102 45-117 U/L Total Protein 6.7 6.4-8.2 gm/dl Albumin 3.4 3.4-5.0 gm/dl Globulin 3.3 2.5-4.0 gm/dl Albumin/Globulin Ratio 1.0 0.9-2 Lactic Acid Level 1.1 0.4-2.0 mmol/L Magnesium Level 1.8 1.8-2.4 mg/dl Microbiology Results 08/06/17 Blood Culture, Received Pending 08/06/17 Blood Culture, Received Pending 08/06/17 Gram Stain - Final, Resulted 08/06/17 Sputum Culture - Preliminary, Resulted NO GROWTH
--- NOTE | 2017-08-07 12:55 | INFECT. DISEASE CONSULTATION ---
DATE OF CONSULTATION: 08/07/2017 REQUESTING PHYSICIAN: Dr. Ace. HISTORY OF PRESENT ILLNESS: This is a 71-year-old female who was transferred here from the Emergency Room at [facility]. She states that she recently had worsening cough and shortness of breath. She was followed by her primary care physician and her COPD medications were changed to Spiriva and Symbicort. She did have some sore throat over the past few days and she did follow up with her family physician, who put her on a prednisone taper as well as a Z-DIOMEDES. She was tolerating this well when she had worsening cough yesterday and had a one-time episode of hemoptysis. She called her daughter who is a nurse and it was suggested that she go to the hospital for further evaluation. It appears that she did have imaging while in the hospital at [place] which did show effusion on x-ray which I do not have records for. For this reason, it was decided that a chest tube would be placed on the left side. This was done at [facility] yesterday. After this was done, she had worsening pain which radiates to the back and to the shoulder. Because of this, a chest x-ray was repeated which showed pneumothorax. She then was transferred to [facility] for additional care. She did undergo a CAT scan of the chest here which showed 30% pneumothorax and a chest tube that was kinked. She was followed by pulmonary and the chest tube was removed and a new chest tube was placed and the fluid was sent for culture, results of this are pending. She was placed empirically on imipenem and vancomycin. She has been afebrile and denies having any fevers prior to admission to the hospital. Yesterday, she did have a white blood cell count of 15 and this has improved to 14. On my examination, she is out of bed to chair and states overall she is feeling much better. She does admit to having some residual pain in her left shoulder, but otherwise states she feels well. She continues to deny any fevers or chills. She has had no additional cough or hemoptysis. She denies any chest pain or pleuritic chest pain. Her appetite has been stable at home. She has not had any sick contacts. She denies any nausea, vomiting or diarrhea. All remaining review of systems is reviewed and is unremarkable. She appears to be tolerating antibiotics well. PAST MEDICAL HISTORY: Significant for chronic bronchitis, coronary artery disease, hypertension, COPD. PAST SURGICAL HISTORY: Significant for CABG, laminectomy and hysterectomy. She has also had tonsillectomy many years ago. FAMILY HISTORY: Noncontributory. SOCIAL HISTORY: Significant for daily tobacco use. She denies any alcohol or drug use. She is and lives with her . She denies any recent sick contacts. ALLERGIES: She HAS ALLERGIES TO CEPHALOSPORINS, ADHESIVE TAPE, PENICILLIN, SULFA, VANCOMYCIN; however, she did tolerate this AND OXYCODONE. CURRENT MEDICATIONS: Include nicotine patch, Lopressor, Norvasc, Colace, Cozaar, multivitamins, calcium, vitamin D, Protonix, Spiriva, imipenem, Toradol, morphine, Atrovent, Xopenex, Lipitor, Wellbutrin, Advair, Neurontin, magnesium, Singulair, Zantac, Dilaudid, Tylenol, Maalox, milk of magnesia, Ambien, MiraLax, albuterol, Xanax, Soma, Percocet, Ativan, Roxicodone and Ultram. PHYSICAL EXAMINATION: VITAL SIGNS: She has been afebrile since admission to the hospital, pulse 83, respiratory rate 20, blood pressure is 131/84, and oxygen saturation is 94-98% on 2 liters. GENERAL: She is awake, alert and oriented x3. She is in no acute distress. HEENT: Mucous membranes are dry. Extraocular muscles are intact. HEART: Regular. LUNGS: Decreased on the left. The chest tube is in place with minimal serosanguineous fluid. ABDOMEN: Soft, nontender and nondistended. EXTREMITIES: There is no lower extremity edema bilaterally. SKIN: Without rash. LABORATORY AND IMAGING STUDIES: CBC today reveals a white blood cell count of 14.2, hemoglobin 12.8 and platelets of 323. Chemistry panel reveals sodium of 134, potassium 3.6, chloride 98, bicarbonate 29, BUN 10, creatinine 0.8 and glucose is 169. LFTs are within normal limits. Blood cultures from the 10th are pending. A specimen obtained at that time, a chest tube exchange has moderate white blood cells but no organisms. Chest x-ray done this morning shows no significant change in the position. No pneumothorax identified. Persistent left-sided subcutaneous emphysema and a persistent left lower lobe infiltrate. CAT scan of the chest done on arrival yesterday and shows a left-sided chest tube with multiple kinks, 30% pneumothorax, no evidence of abscess was noted at that time. ASSESSMENT AND PLAN: Effusion, question infectious in etiology as she will be maintained on broad spectrum antibiotics pending the results of blood as well as pleural fluid cultures. She is currently afebrile and hemodynamically stable, and we will follow along with you. Thank you for this consultation.
--- NOTE | 2017-08-07 13:35 | DIAGNOSTIC IMAGING REPORT ---
CHEST ONE VIEW PORTABLE CLINICAL HISTORY: Chest tube placement. COMPARISON STUDY: Earlier in the day FINDINGS: There are postsurgical changes of a midline sternotomy. The left-sided pleural drainage catheter remains unchanged in position. There is subcutaneous emphysema on the left. No significant pneumothorax is visualized. There is slight improvement in the left basal airspace opacities.[ IMPRESSION: 1. No change in position of the left-sided chest tube. No significant pneumothorax. Left-sided subcutaneous emphysema 2. Slight improvement in the left basilar airspace opacities Electronically signed by: Aiden Roe M.D. 08/07/2017 1:34 PM Dictated Date/Time: 08/07/2017 1:33 PM
--- NOTE | 2017-08-07 14:52 | Pulmonology Progress Note ---
Pulmonary Progress Note Date of Service Aug 07, 2017. Attending Dr. English Subjective Patient seen and examined at bedside. She is complaining of left sided chest pain. She denies any dyspnea, but still continues to have dry nonproductive cough. Objective VS reviewed Lungs: coarse crackles b/l bases, left chest tube in place + air leak present Abd: soft/NT/ND BS+ Ext:no edema b/l, no cyanosis, no clubbing. Labs reviewed. Blood culture 08/06/2017--pending Sputum 08/06--no growth Medications reviewed. Imaging viewed by me. CXR 08/07/2017 12 pm IMPRESSION: 1. No change in position of the left-sided chest tube. No significant pneumothorax. Left-sided subcutaneous emphysema 2. Slight improvement in the left basilar airspace opacities CXR 08/07/2017 8 am IMPRESSION: 1. No significant change in the position of the left-sided pleural drain, the tip of which projects over the aortic arch 2. No pneumothorax identified 3. Persistent left-sided subcutaneous emphysema 4. Persistent left basilar airspace opacities CXR 08/07/2017 IMPRESSION: 1. Interval replacement or repositioning of the large bore left pleural drain, which now terminates appropriately near the left apex. Trace left pneumothorax persists. 2. Stable to slightly increased left basilar opacity concerning for pneumonia. CT chest 08/07/2017 IMPRESSION: 1. Left-sided chest tube is located entirely within the subcutaneous fat and soft tissues of the chest wall itself.. 2. There is no evidence for extension of any component of tube to the chest cavity itself. 3. 30% left-sided pneumothorax. 4. Extensive subcutaneous emphysema over the left hemithorax. 5. The chest tube within the soft tissues contains at least 2 kinks 6. This tube should be removed 7. Small left effusion with partial left lower lobe atelectatic change. Assessment & Plan Left Pulmonary Abscess Left secondary spontaneous pneumothorax COPD Left pneumothorax appears to have resolved. There still appears to be a small persistent air leak, suggestive of bronchopleural fistula. I spoke with Drs. Duncan and Bob this morning. Dr. Harper plans to take patient to the OR for possible segmentectomy of this pulmonary abscess on Monday. Continue with broad spectrum antibiotics. ID has been consulted and is following. Blood cultures are still pending. Continue with Advair, Singulair and Spiriva for COPD maintenance therapy. She is not in acute exacerbation. Continue with supplemental oxygenation and adequate pain control. Will continue to follow with you. Data Medications: Current Inpatient Medications Medications (Trade) Dose Ordered Sig/Kaylee Route Start Time Stop Time Status Last Admin Dose Admin Acetaminophen (Tylenol Tab) 650 mg Q4H PRN PO 08/06/17 19:15 09/05/17 19:14 Al Hydrox/Mg Hydrox/Simethicone (Maalox Max Susp) 15 ml Q4H PRN PO 08/06/17 19:15 09/05/17 19:14 Magnesium Hydroxide (Milk Of Magnesia Susp) 30 ml Q12H PRN PO 08/06/17 19:15 09/05/17 19:14 Zolpidem Tartrate (Ambien Tab) 5 mg HSZ PRN PO 08/06/17 19:15 09/05/17 19:14 Ondansetron HCl (Zofran Inj) 4 mg Q6H PRN IV 08/06/17 19:15 09/05/17 19:14 Nitroglycerin (Nitrostat Tab) 0.4 mg UD PRN SL 08/06/17 19:15 09/05/17 19:14 Polyethylene (Miralax Powder Packet) 17 gm DAILY PRN PO 08/06/17 19:15 09/05/17 19:14 Albuterol (Ventolin Hfa Inhaler) 2 puffs Q4 PRN INH 08/06/17 19:15 09/05/17 19:14 Alprazolam (Xanax Tab) 0.5 mg HS PRN PO 08/06/17 19:15 09/05/17 19:14 Atorvastatin Calcium (Lipitor Tab) 10 mg HS PO 08/06/17 21:00 09/05/17 20:59 08/07/17 00:36 10 MG Bupropion HCl (Wellbutrin-Sr Tab) 100 mg BID PO 08/06/17 21:00 09/05/17 20:59 Carisoprodol (Soma Tab) 350 mg TID PRN PO 08/06/17 19:15 09/05/17 19:14 Docusate Sodium (coLACE CAP) 200 mg DAILY PO 08/07/17 09:00 09/06/17 08:59 08/07/17 08:26 200 MG Salmeterol Xinafoate/ Fluticasone (Advair Diskus 250/50 Inh) 1 puff BID INH 08/06/17 21:00 09/05/17 20:59 08/06/17 22:18 1 PUFF Gabapentin (Neurontin Cap) 300 mg TID PO 08/06/17 21:00 09/05/17 20:59 08/07/17 08:24 300 MG Acetaminophen/ Hydrocodone Bitart ([place] 7.5/325 Tab) 1 tab Q6 PRN PO 08/06/17 19:15 08/20/17 19:14 Lorazepam (Ativan Tab) 1 mg Q8H PRN PO 08/06/17 19:15 09/05/17 19:14 08/06/17 19:54 1 MG Losartan Potassium (coZAAR TAB) 100 mg QAM PO 08/07/17 09:00 09/06/17 08:59 08/07/17 08:27 100 MG Magnesium Oxide (Mag-Ox Tab) 400 mg BID PO 08/06/17 21:00 09/05/17 20:59 08/07/17 08:24 400 MG Montelukast Sodium (Singulair Tab) 10 mg HS PO 08/06/17 21:00 09/05/17 20:59 08/07/17 00:35 10 MG Multivitamins (Multivitamin Tab) 1 tab QAM PO 08/07/17 09:00 09/06/17 08:59 08/07/17 08:25 1 TAB Oxycodone HCl (Roxicodone Immediate Rel Tab) 5 mg Q4H PRN PO 08/06/17 19:15 08/20/17 19:14 08/07/17 08:21 5 MG Ranitidine HCl (zANTac TAB) 150 mg HS PO 08/06/17 21:00 09/05/17 20:59 08/07/17 00:34 150 MG Tramadol HCl (Ultram Tab) 50 mg TID PRN PO 08/06/17 19:15 09/05/17 19:14 Calcium/Vitamin D (Caltrate Plus Tab) 1 tab QAM PO 08/07/17 09:00 09/06/17 08:59 08/07/17 08:25 1 TAB Pantoprazole Sodium (Protonix Tab) 40 mg DAILY PO 08/07/17 09:00 09/06/17 08:59 08/07/17 08:25 40 MG Morphine Sulfate (MoRPHine SULFATE INJ) 4 mg Q4H PRN IV 08/07/17 00:00 08/20/17 19:59 Hydromorphone HCl (Dilaudid Inj) 0.5 mg Q4H PRN IV 08/06/17 21:00 08/20/17 20:59 Nicotine (Nicoderm Cq 14MG Patch) 1 patch QAM TD 08/07/17 09:00 09/06/17 08:59 08/07/17 08:29 1 PATCH Miscellaneous (Remove Nicoderm Patch) 1 ea HS N/A 08/07/17 21:00 09/06/17 20:59 Ipratropium [place] (Atrovent 0.02% 0.5MG/2.5ML Neb) 0.5 mg Q4R INH 08/07/17 00:00 09/06/17 00:00 08/07/17 11:10 0.5 MG Levalbuterol (Xopenex 1.25MG/ 0.5ML Neb) 1.25 mg Q4R INH 08/07/17 00:00 09/06/17 00:00 08/07/17 11:10 1.25 MG Tiotropium [place] (Spiriva Handihaler Inhaler) 1 puff QAM INH 08/07/17 09:00 09/06/17 08:59 08/07/17 08:28 1 PUFF Ketorolac Tromethamine (Toradol Inj) 15 mg Q6H IV. 08/07/17 06:00 08/09/17 05:59 08/07/17 12:18 15 MG Imipenem/ Cilastatin Sodium (Consult) 1 ea DAILY PRN N/A 08/07/17 06:24 09/06/17 06:23 Metoprolol Tartrate (Lopressor Tab) 50 mg BID@0630,1600 PO 08/07/17 16:00 09/06/17 15:59 Budesonide/ Formoterol Fumarate (Symbicort 80/ 4.5 Inh) 2 puffs BID INH 08/07/17 11:30 09/06/17 11:29 Imipenem/ Cilastatin Sodium 500 mg/Dextrose 110 ml @ 110 mls/hr Q6@0400,1000,1600,2200 IV 08/07/17 16:00 08/14/17 15:59 Vital Signs: Date Time Temp Pulse Resp B/P (MAP) Pulse Ox O2 Delivery O2 Flow Rate FiO2 08/07/17 12:33 36.7 70 20 124/74 (91) 95 Nasal Cannula 4.0 08/07/17 12:00 Nasal Cannula 2.0 08/07/17 11:13 70 15 94 Nasal Cannula 4.0 08/07/17 08:00 Nasal Cannula 2.0 08/07/17 07:41 36.6 83 20 131/84 (100) 94 Nasal Cannula 2.5 08/07/17 07:16 83 17 91 Nasal Cannula 2.0 08/07/17 04:15 Nasal Cannula 2.0 08/07/17 04:03 36.6 76 18 135/77 (96) 92 Nasal Cannula 2.5 08/07/17 03:21 76 16 98 Nasal Cannula 2.0 08/07/17 00:15 95 Nasal Cannula 2.0 08/07/17 00:15 37.2 88 20 146/87 (106) 92 Nasal Cannula 4.0 08/06/17 19:32 36.8 69 22 124/77 98 Nasal Cannula 2.0 08/06/17 19:10 37.3 76 21 125/79 (94) 93 Nasal Cannula 3.5 Laboratory Results: Last 24 Hours Test 08/06/17 19:31 08/06/17 19:37 08/07/17 05:18 White Blood Count 15.33 K/uL 14.28 K/uL Red Blood Count 4.05 M/uL 4.18 M/uL Hemoglobin 12.9 g/dL 12.8 g/dL Hematocrit 37.4 % 38.2 % Mean Corpuscular Volume 92.3 fL 91.4 fL Mean Corpuscular Hemoglobin 31.9 pg 30.6 pg Mean Corpuscular Hemoglobin Concent 34.5 g/dl 33.5 g/dl Platelet Count 328 K/uL 323 K/uL Mean Platelet Volume 9.2 fL 9.2 fL Neutrophils (%) (Auto) 74.2 % Lymphocytes (%) (Auto) 15.0 % Monocytes (%) (Auto) 7.7 % Eosinophils (%) (Auto) 2.5 % Basophils (%) (Auto) 0.3 % Neutrophils # (Auto) 11.38 K/uL Lymphocytes # (Auto) 2.30 K/uL Monocytes # (Auto) 1.18 K/uL Eosinophils # (Auto) 0.38 K/uL Basophils # (Auto) 0.04 K/uL RDW Standard Deviation 45.3 fL 44.6 fL RDW Coefficient of Variation 13.4 % 13.4 % Immature Granulocyte % (Auto) 0.3 % Immature Granulocyte # (Auto) 0.05 K/uL Prothrombin Time 10.7 SECONDS Prothromb Time International Ratio 1.0 Sodium Level 136 mmol/L 134 mmol/L Potassium Level 3.2 mmol/L 3.6 mmol/L Chloride Level 99 mmol/L 98 mmol/L Carbon Dioxide Level 29 mmol/L 29 mmol/L Anion Gap 8.0 mmol/L 7.0 mmol/L Blood Urea Nitrogen 7 mg/dl 10 mg/dl Creatinine 0.78 mg/dl 0.80 mg/dl Est Creatinine Clear Calc Drug Dose 69.2 ml/min 67.4 ml/min Estimated GFR () 89.3 86.6 Estimated GFR (Non- 77.0 74.7 BUN/Creatinine Ratio 9.2 12.4 Random Glucose 121 mg/dl 169 mg/dl Calcium Level 9.1 mg/dl 9.1 mg/dl Total Bilirubin 0.6 mg/dl Aspartate Amino Transf (AST/SGOT) 13 U/L Alanine Aminotransferase (ALT/SGPT) 15 U/L Alkaline Phosphatase 102 U/L Total Protein 6.7 gm/dl Albumin 3.4 gm/dl Globulin 3.3 gm/dl Albumin/Globulin Ratio 1.0 Lactic Acid Level 1.1 mmol/L Magnesium Level 1.8 mg/dl
[2017-08-07] MEDS: BUDESONIDE/FORMOTEROL FUMARATE 80/4.5 60 PUFFS/INHALER INH SCH ×2 (15:22→21:23)
[2017-08-07] MEDS: IMIPENEM/CILASTATIN IV 500 MG in D5W 100ML IV SCH ×2 (15:22→22:31)
[2017-08-07 17:32] LABS: URINE APPEARANCE CLEAR (CLEAR); URINE BILIRUBIN NEG (NEG); URINE COLOR YELLOW; URINE NITRITE NEG (NEG); URINE PH 5.5 (4.5-7.5); URINE SPECIFIC GRAVITY 1.019 (1.000-1.030); UROBILINOGEN NEG (NEG); ZZUR CULT IF INDIC CLEAN CATCH NO
[2017-08-07 17:34] LABS: MANUAL MICROSCOPIC REQUIRED? NO; REVIEW REQ? NO
[2017-08-07] MEDS: MoRPHine SULFATE 4 MG/ML 1 ML CARP\\VIAL IV PRN (21:39)
[2017-08-07] MEDS: LORAZEPAM 1 MG TAB PO PRN (21:40)
--- NOTE | 2017-08-07 23:52 | SURGICAL CONSULTATION ---
DATE OF CONSULTATION: 08/07/2017 REASON FOR CONSULTATION: 1. Left-sided pneumothorax. 2. Probable lung abscess responsible for left-sided pneumothorax. HISTORY OF PRESENT ILLNESS: This is a 71-year-old female who is a smoker, who was found to have an area in the superior aspect of her left lower lobe but actually involving most of her left lower lobe, which appear to be an abscess. Apparently she was treated with antibiotics as an outpatient; however, she described she was placed on azithromycin and prednisone and she felt like her symptoms may have improved, but then she had increasing cough and had left-sided chest pain on the evening of 08/06/2017. She went to [facility] and found to have pneumothorax, and a chest tube was placed. This was removed and another chest tube placed after she arrived at [facility]. The lung appears to be fairly well expanded. A CT scan upon her arrival shows significant infiltration of the lower lobe with what appears to be a pulmonary abscess. She also has a history of chronic obstructive pulmonary disease. She has been seen by infectious disease and is on antimicrobial therapy. She has had no fevers and no chills, although she did have white blood count of 15,000. She also had some left-sided chest and shoulder pain. I have been asked to comment on her from a thoracic surgery standpoint and to help manage the chest tube also. PAST MEDICAL HISTORY: 1. Chronic active cigarette smoking. 2. "Chronic bronchitis." 3. Hypertension. 4. Chronic obstructive pulmonary disease. 5. Coronary artery disease. 6. Lumbosacral disc disease. 7. Gastroesophageal reflux disease. 8. Hypercholesterolemia. PAST SURGICAL HISTORY: 1. Laminectomy. 2. Hysterectomy. 3. Coronary artery bypass graft. 4. Resection of atrial myxoma. 5. Revision of back surgery. SOCIAL HISTORY: The patient smokes every day. She does not use alcohol. She is retired. She is . She lives with family and her . FAMILY MEDICAL HISTORY: There is a history of coronary artery disease and diabetes and hypertension as well as chronic obstructive pulmonary disease. MEDICATIONS: 1. Norvasc. 2. Cozaar. 3. Lopressor. 4. ProAir. 5. Plavix. 6. Aspirin 81 mg. 7. Singulair. 8. Mag-Ox. 9. Zantac. 10. Lipitor. 11. Alprazolam. 12. Ipratropium bromide nebulizers q.i.d. 13. Spiriva 1 puff daily. 14. Symbicort inhaler b.i.d. 15. Vitamin D. 16. Gabapentin. 17. Oxycodone. 18. Nexium. 19. Stool softener. 20. Soma. 21. Multivitamin. ALLERGIES: 1. CEPHALOSPORIN. 2. PENICILLIN. 3. SULFA. 4. VANCOMYCIN. 5. OXYCODONE. REVIEW OF SYSTEMS: The patient denies any weight loss. She states that she has felt a bit weak. She does have problems with feeling much weaker and having more dyspnea over the last 2 weeks. She denies any visual or auditory symptoms. She has had no nausea, vomiting or diarrhea. She denies abdominal pain or low back pain. PHYSICAL EXAMINATION: GENERAL: This is a short heavy woman who stands 5 feet 3 inches tall and weighs 186 pounds. She is awake and alert. She is wearing 2 liters of O2 with 91% saturation. HEENT: Her pupils are equally round and reactive. Sclerae are pale but anicteric. She has no nasolabial flattening. Tongue is midline and I detect no oral mucosal lesions or evidence of oral candidiasis. NECK: Supple. She has no supraclavicular or cervical lymphadenopathy, neck vein distention or thyromegaly. CHEST: She is actually moving air fairly well bilaterally without overt wheezing. She has some subcutaneous emphysema on the left. Chest tube site dressing is dry. HEART: She has a regular rate and rhythm of her heart. ABDOMEN: A bit obese, but soft and nontender. EXTREMITIES: She has no peripheral edema. She has good peripheral pulses. She has no joint effusions. NEUROLOGIC: She is awake, alert and oriented. ASSESSMENT AND PLAN: Probable lung abscess left lower lobe. The patient has an active air leak with her chest tube. I believe this patient needs to go to the operating room where if not a segmentectomy or wedge resection, then possibly a left lower lobectomy be offered. JACIEL
[2017-08-08] VITALS (17 sets, daily range): BP systolic 110–149; BP diastolic 54–84; PULSE 59–97; TEMP 36.2–37.3; O2SAT 91–98
[2017-08-08] MEDS: KETOROLAC TROMETHAMINE 15 MG/ML VIAL IV. SCH ×5 (00:28→23:33)
[2017-08-08] MEDS: LEVALBUTEROL 1.25MG/0.5ML NEB INH SCH ×6 (03:30→23:32)
[2017-08-08] MEDS: IPRATROPIUM BROMIDE NEB SOLN 0.02% 2.5 ML VIAL INH SCH ×6 (03:30→23:32)
[2017-08-08] MEDS: IMIPENEM/CILASTATIN IV 500 MG in D5W 100ML IV SCH ×4 (04:35→22:43)
[2017-08-08] MEDS: METOPROLOL TARTRATE 50 MG TAB PO SCH ×2 (06:00→15:52)
[2017-08-08 06:02] LABS: HEMATOCRIT 30.4 % (37-47); MEAN CELL VOLUME 89.1 fL (80-100); MEAN CORPUSCULAR HEMOGLOBIN 32.6 pg (25-34); MEAN CORPUSCULAR HGB CONC 36.5 g/dl (32-36); PLATELET COUNT 270 K/uL (130-400); RED BLOOD COUNT 3.41 M/uL (4.2-5.4); WHITE BLOOD COUNT 16.19 K/uL (4.8-10.8)
[2017-08-08 06:37] LABS: BUN/CREATININE RATIO 19.9 (10-20); CALCIUM 8.3 mg/dl (8.5-10.1); CREATININE 0.76 mg/dl (0.60-1.20); MAGNESIUM 1.8 mg/dl (1.8-2.4)
[2017-08-08] MEDS: FLUTICASONE/SALMETEROL 250/50 (ADVAIR) 14 PUFF/1 INHALER INH SCH ×2 (07:42→21:00)
[2017-08-08] MEDS: TIOTROPIUM BROMIDE 5 PUFF/90 MCG INH INH SCH (07:48)
[2017-08-08] MEDS: BUDESONIDE/FORMOTEROL FUMARATE 80/4.5 60 PUFFS/INHALER INH SCH (07:48)
[2017-08-08] MEDS: CALCIUM 600MG + VIT D 400 IU TAB PO SCH (07:49)
[2017-08-08] MEDS: DOCUSATE SODIUM 100 MG CAP PO SCH (07:49)
[2017-08-08] MEDS: LOSARTAN POTASSIUM 50 MG TAB PO SCH (07:51)
[2017-08-08] MEDS: MAGNESIUM OXIDE 400 MG TAB PO SCH ×2 (07:51→22:19)
[2017-08-08] MEDS: GABAPENTIN 300 MG CAP PO SCH ×3 (07:52→22:18)
[2017-08-08] MEDS: MULTIVITAMIN TAB PO SCH (07:52)
[2017-08-08] MEDS: NICOTINE 14 MG/24 HR TDSY TD SCH (07:53)
[2017-08-08] MEDS: PANTOprazole SOD 40 MG TAB PO SCH (07:53)
[2017-08-08] MEDS: BuPROPion SR 100 MG TABCR PO SCH (07:53)
[2017-08-08] MEDS: OXYCODONE HCL IR 5 MG TAB (IMMEDIATE RELEASE) PO PRN ×3 (07:58→22:20)
--- NOTE | 2017-08-08 10:03 | SURGERY PROGRESS NOTE ---
DATE: 08/08/2017 This patient still has a persistent air leak. I reviewed this case again radiographically. It appears to me that while she is improved from a clinical standpoint and is now on room air with 92% saturation. I am still concerned about this air leak. She is not draining very much. We have really grown nothing from our cultures. Her white count this morning is 16,190. Hemoglobin is 11.1. Her BUN and creatinine are normal. Sodium is a bit low at 127 and potassium is 3.0. This will need to be corrected before we go to the operating room tomorrow. I had a long talk with the patient about the operating room and what to expect. Quite frankly, I am not sure what is going on with her left lung. We are assuming this is an abscess based on her CT Scan; however, clinically, she really does not give a history entirely consistent with an abscess. I would expect her to be sicker. I will discuss this with infectious disease. In the meantime, I am going to take her to the operating room and do a robotic thoracoscopic evaluation. I may proceed with a wedge resection or even a left lower lobectomy as it is completely consolidated. On the other hand, if I find an obvious leak and we can fix this that might be preferable, although I am still very concerned about what is going on her left lower lobe. JACIEL
[2017-08-08 10:55] LABS: BUN/CREATININE RATIO 18.7 (10-20); CALCIUM 8.6 mg/dl (8.5-10.1); CREATININE 0.77 mg/dl (0.60-1.20); POTASSIUM 3.5 mmol/L (3.5-5.1)
[2017-08-08] MEDS ORDERED: NURSING VERBAL MED ORDER ONE ×2 (11:30→18:30)
[2017-08-08] MEDS ORDERED: POTASSIUM CHLORIDE 10 MEQ TABCR PO ONE (13:00)
[2017-08-08] MEDS ORDERED: SODIUM CHLORIDE 0.9% 500ML 500 ML IV SCH (13:00)
--- NOTE | 2017-08-08 13:10 | Pulmonology Progress Note ---
Pulmonary Progress Note Date of Service Aug 08, 2017. Attending Dr. English Subjective Patient seen and examined. She states that she is feeling a better. She complains of feeling "drowsy." She is still having some pain in the chest tube insertion site, but is relieved with pain medications. She is ambulating with dyspnea. She does have dry intermittent cough. Objective VS reviewed, Tmx 36.8, BP 110/63-147/84, P 59-94, RR 15-18, SaO2 91-98% on 2- 3L. She is currently on RA Gen: AAOx3, NAD, speaking in full sentences, no respiratory distress Lungs: good air entry bilaterally, left chest tube in place + air leak present Abd: soft/NT/ND BS+ Ext:no edema b/l, no cyanosis, no clubbing. Labs reviewed. WBC 14-->16 today. Na 126, Blood culture 08/06/2017--pending Sputum 08/06--no growth Medications reviewed. Imaging viewed by me. EKG 08/08/2017 Sinus bradycardia with 1st degree AV block. CXR 08/07/2017 12 pm IMPRESSION: 1. No change in position of the left-sided chest tube. No significant pneumothorax. Left-sided subcutaneous emphysema 2. Slight improvement in the left basilar airspace opacities CXR 08/07/2017 8 am IMPRESSION: 1. No significant change in the position of the left-sided pleural drain, the tip of which projects over the aortic arch 2. No pneumothorax identified 3. Persistent left-sided subcutaneous emphysema 4. Persistent left basilar airspace opacities CXR 08/07/2017 IMPRESSION: 1. Interval replacement or repositioning of the large bore left pleural drain, which now terminates appropriately near the left apex. Trace left pneumothorax persists. 2. Stable to slightly increased left basilar opacity concerning for pneumonia. CT chest 08/07/2017 IMPRESSION: 1. Left-sided chest tube is located entirely within the subcutaneous fat and soft tissues of the chest wall itself.. 2. There is no evidence for extension of any component of tube to the chest cavity itself. 3. 30% left-sided pneumothorax. 4. Extensive subcutaneous emphysema over the left hemithorax. 5. The chest tube within the soft tissues contains at least 2 kinks 6. This tube should be removed 7. Small left effusion with partial left lower lobe atelectatic change. Assessment & Plan Left lower lobe cavitary mass Left secondary spontaneous pneumothorax COPD Tobacco use disorder Left pneumothorax appears to have resolved. There still appears to be a small persistent air leak, suggestive of bronchopleural fistula. I spoke with Drs. Duncan and Bob. Dr. Harper plans to take patient to the OR for possible segmentectomy of this pulmonary abscess on Monday. 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 This is also concerning for possible malignancy. Send urine Na, Urine Osm, Serum Osm. -- I will leave management per primary team. Continue with broad spectrum antibiotics. ID has been consulted and is following. Blood cultures are still pending. Continue with Advair, Singulair and Spiriva for COPD maintenance therapy. She is not in acute exacerbation. Continue with supplemental oxygenation and adequate pain control. Continue with Nicotine patch. Smoking cessation counseling given. Will continue to follow with you. Data Medications: Current Inpatient Medications Medications (Trade) Dose Ordered Sig/Kaylee Route Start Time Stop Time Status Last Admin Dose Admin Acetaminophen (Tylenol Tab) 650 mg Q4H PRN PO 08/06/17 19:15 09/05/17 19:14 Al Hydrox/Mg Hydrox/Simethicone (Maalox Max Susp) 15 ml Q4H PRN PO 08/06/17 19:15 09/05/17 19:14 Magnesium Hydroxide (Milk Of Magnesia Susp) 30 ml Q12H PRN PO 08/06/17 19:15 09/05/17 19:14 Zolpidem Tartrate (Ambien Tab) 5 mg HSZ PRN PO 08/06/17 19:15 09/05/17 19:14 Ondansetron HCl (Zofran Inj) 4 mg Q6H PRN IV 08/06/17 19:15 09/05/17 19:14 Nitroglycerin (Nitrostat Tab) 0.4 mg UD PRN SL 08/06/17 19:15 09/05/17 19:14 Polyethylene (Miralax Powder Packet) 17 gm DAILY PRN PO 08/06/17 19:15 09/05/17 19:14 Albuterol (Ventolin Hfa Inhaler) 2 puffs Q4 PRN INH 08/06/17 19:15 09/05/17 19:14 Alprazolam (Xanax Tab) 0.5 mg HS PRN PO 08/06/17 19:15 09/05/17 19:14 Atorvastatin Calcium (Lipitor Tab) 10 mg HS PO 08/06/17 21:00 09/05/17 20:59 08/07/17 21:23 10 MG Carisoprodol (Soma Tab) 350 mg TID PRN PO 08/06/17 19:15 09/05/17 19:14 Docusate Sodium (coLACE CAP) 200 mg DAILY PO 08/07/17 09:00 09/06/17 08:59 08/08/17 07:49 200 MG Salmeterol Xinafoate/ Fluticasone (Advair Diskus 250/50 Inh) 1 puff BID INH 08/06/17 21:00 09/05/17 20:59 08/06/17 22:18 1 PUFF Gabapentin (Neurontin Cap) 300 mg TID PO 08/06/17 21:00 09/05/17 20:59 08/08/17 07:52 300 MG Acetaminophen/ Hydrocodone Bitart ([place] 7.5/325 Tab) 1 tab Q6 PRN PO 08/06/17 19:15 08/20/17 19:14 Lorazepam (Ativan Tab) 1 mg Q8H PRN PO 08/06/17 19:15 09/05/17 19:14 08/07/17 21:40 1 MG Losartan Potassium (coZAAR TAB) 100 mg QAM PO 08/07/17 09:00 09/06/17 08:59 08/08/17 07:51 100 MG Magnesium Oxide (Mag-Ox Tab) 400 mg BID PO 08/06/17 21:00 09/05/17 20:59 08/08/17 07:51 400 MG Montelukast Sodium (Singulair Tab) 10 mg HS PO 08/06/17 21:00 09/05/17 20:59 08/07/17 21:23 10 MG Multivitamins (Multivitamin Tab) 1 tab QAM PO 08/07/17 09:00 09/06/17 08:59 08/08/17 07:52 1 TAB Oxycodone HCl (Roxicodone Immediate Rel Tab) 5 mg Q4H PRN PO 08/06/17 19:15 08/20/17 19:14 08/08/17 07:58 5 MG Ranitidine HCl (zANTac TAB) 150 mg HS PO 08/06/17 21:00 09/05/17 20:59 08/07/17 21:23 150 MG Tramadol HCl (Ultram Tab) 50 mg TID PRN PO 08/06/17 19:15 09/05/17 19:14 Calcium/Vitamin D (Caltrate Plus Tab) 1 tab QAM PO 08/07/17 09:00 09/06/17 08:59 08/08/17 07:49 1 TAB Pantoprazole Sodium (Protonix Tab) 40 mg DAILY PO 08/07/17 09:00 09/06/17 08:59 08/08/17 07:53 40 MG Morphine Sulfate (MoRPHine SULFATE INJ) 4 mg Q4H PRN IV 08/07/17 00:00 08/20/17 19:59 08/07/17 21:39 4 MG Hydromorphone HCl (Dilaudid Inj) 0.5 mg Q4H PRN IV 08/06/17 21:00 08/20/17 20:59 Nicotine (Nicoderm Cq 14MG Patch) 1 patch QAM TD 08/07/17 09:00 09/06/17 08:59 08/08/17 07:53 1 PATCH Miscellaneous (Remove Nicoderm Patch) 1 ea HS N/A 08/07/17 21:00 09/06/17 20:59 08/07/17 21:00 1 EA Ipratropium [place] (Atrovent 0.02% 0.5MG/2.5ML Neb) 0.5 mg Q4R INH 08/07/17 00:00 09/06/17 00:00 08/08/17 11:12 0.5 MG Levalbuterol (Xopenex 1.25MG/ 0.5ML Neb) 1.25 mg Q4R INH 08/07/17 00:00 09/06/17 00:00 08/08/17 11:12 1.25 MG Tiotropium [place] (Spiriva Handihaler Inhaler) 1 puff QAM INH 08/07/17 09:00 09/06/17 08:59 08/07/17 08:28 1 PUFF Ketorolac Tromethamine (Toradol Inj) 15 mg Q6H IV. 08/07/17 06:00 08/09/17 05:59 08/08/17 06:00 15 MG Imipenem/ Cilastatin Sodium (Consult) 1 ea DAILY PRN N/A 08/07/17 06:24 09/06/17 06:23 Metoprolol Tartrate (Lopressor Tab) 50 mg BID@0630,1600 PO 08/07/17 16:00 09/06/17 15:59 08/08/17 06:00 50 MG Imipenem/ Cilastatin Sodium 500 mg/Dextrose 110 ml @ 110 mls/hr Q6@0400,1000,1600,2200 IV 08/07/17 16:00 08/14/17 15:59 08/08/17 10:17 110 MLS/HR Budesonide/ Formoterol Fumarate (Symbicort 160/ 4.5 Inh) 2 puffs BID INH 08/08/17 21:00 09/07/17 20:59 Potassium Chloride (Klor-Con M10) 40 meq ONE ONCE PO 08/08/17 13:00 08/08/17 13:01 Sodium Chloride 250 ml @ 50 mls/hr Q5H IV 08/08/17 13:00 08/08/17 17:59 Vital Signs: Date Time Temp Pulse Resp B/P (MAP) Pulse Ox O2 Delivery O2 Flow Rate FiO2 08/08/17 12:00 95 Nasal Cannula 3.0 08/08/17 11:14 94 15 91 Room Air 08/08/17 08:22 36.4 71 18 147/84 (105) 92 Room Air 08/08/17 08:21 92 Room Air 08/08/17 08:00 97 Nasal Cannula 3.0 08/08/17 07:51 59 18 98 Nasal Cannula 3.0 08/08/17 05:30 36.8 73 18 110/63 (79) 94 Nasal Cannula 2.0 08/08/17 04:10 96 Nasal Cannula 2.0 08/08/17 00:05 96 Nasal Cannula 2.0 08/07/17 23:45 36.8 74 20 154/76 (102) 96 Nasal Cannula 08/07/17 23:07 70 18 97 Nasal Cannula 4.0 08/07/17 20:21 73 18 95 Nasal Cannula 4.0 08/07/17 20:15 97 Nasal Cannula 2.0 08/07/17 19:45 36.9 81 20 168/70 (102) 97 Nasal Cannula 3.0 08/07/17 19:02 36.7 68 22 148/82 (104) 97 Nasal Cannula 4.0 08/07/17 16:00 Nasal Cannula 2.0 08/07/17 15:33 36.7 78 22 125/79 (94) 97 High Flow Oxygen 8.0 Mask 08/07/17 15:26 82 18 92 Nasal Cannula 4.0 Laboratory Results: Last 24 Hours Test 08/07/17 16:35 08/08/17 05:39 08/08/17 10:17 08/08/17 12:50 Urine Color YELLOW Urine Appearance CLEAR Urine pH 5.5 Urine Specific [place] 1.019 Urine Protein NEG Urine Glucose (UA) NEG Urine Ketones TRACE Urine Occult Blood NEG Urine Nitrite NEG Urine Bilirubin NEG Urine Urobilinogen NEG Urine Leukocyte Esterase NEG White Blood Count 16.19 K/uL Red Blood Count 3.41 M/uL Hemoglobin 11.1 g/dL Hematocrit 30.4 % Mean Corpuscular Volume 89.1 fL Mean Corpuscular Hemoglobin 32.6 pg Mean Corpuscular Hemoglobin Concent 36.5 g/dl RDW Standard Deviation 42.3 fL RDW Coefficient of Variation 13.1 % Platelet Count 270 K/uL Mean Platelet Volume 9.0 fL Sodium Level 127 mmol/L 126 mmol/L Potassium Level 3.0 mmol/L 3.5 mmol/L Chloride Level 93 mmol/L 93 mmol/L Carbon Dioxide Level 27 mmol/L 28 mmol/L Anion Gap 7.0 mmol/L 5.0 mmol/L Blood Urea Nitrogen 15 mg/dl 14 mg/dl Creatinine 0.76 mg/dl 0.77 mg/dl Est Creatinine Clear Calc Drug Dose 70.9 ml/min 70.0 ml/min Estimated GFR () 92.1 90.7 Estimated GFR (Non- 79.5 78.2 BUN/Creatinine Ratio 19.9 18.7 Random Glucose 139 mg/dl 106 mg/dl Calcium Level 8.3 mg/dl 8.6 mg/dl Magnesium Level 1.8 mg/dl
--- NOTE | 2017-08-08 13:11 | Progress Note ---
Internal Med Progress Note Date of Service: Aug 08, 2017. Provider Documentation: SUBJECTIVE: Seen and examined at bedside. States doing well Denies chest pain, SOB, dizziness Offers no complaints Planned for robotic thoracoscopic evaluation tomorrow by CT surgery OBJECTIVE: Vital Signs-as noted below Physical Exam: General Appearance:Moderately built and nourished, no apparent distress Head: normocephalic, Atraumatic Eyes: normal inspection, EOMI, PERRL Neck: supple, Trachea midline Respiratory/Chest: Decreased breath sounds, CTA, + Left sided chest tube Cardiovascular: S1, S2, No murmur Abdomen/GI:Soft, Non tender, Bowel sounds present Extremities/Musculoskelatal:normal inspection, no edema Neurologic/Psych:grossly no focal neurological deficits Skin: normal color, warm Lab data as noted below. ASSESSMENT & PLAN: Patient is a 71 yr female with H/O CAD/CABG, HTN, COPD presenting with left sided chest pain. LEFT SIDED PNEUMOTHORAX ? LEFT LOWER LOBE PNEUMONIA VS. EFFUSION chest tube readjusted after initial Chest tube placed in [place] [facility] which was displaced CT chest showed 30% left-sided pneumothorax, extensive subcutaneous emphysema over the left hemithorax and small L effusion with partial LLL atelectasis Appreciate Pulmonology/CT surgery help Planed for robotic thoracoscopic eval tomorrow Continue abx coverage for now Appreciate ID Input Blood/Sputum culture negative COPD H/O chronic tobacco use Continue home inhalers pulmonology and CT surgery following counselled for smoking cessation CAD/CABG hold ASA, Plavix for now as planned for thoracoscopic eval continue Losartan, Metoprolol hold Lasix for now Hyponatremia/Hypokalemia: Check Urine osmolality Replace and monitor HTN continue Losartan, Metoprolol DVT PX SCDs for now-chest tube in position Code Status FULL CODE DISPOSITION anticipate d/c home when medically stable will need PT/OT eval prior to discharge follows with Family practice at [place] area would like to follow up with Pulmonology Dr Duncan in [place] Vital Signs: Date Time Temp Pulse Resp B/P (MAP) Pulse Ox O2 Delivery O2 Flow Rate FiO2 08/08/17 12:00 95 Nasal Cannula 3.0 08/08/17 11:14 94 15 91 Room Air 08/08/17 08:22 36.4 71 18 147/84 (105) 92 Room Air 08/08/17 08:21 92 Room Air 08/08/17 08:00 97 Nasal Cannula 3.0 08/08/17 07:51 59 18 98 Nasal Cannula 3.0 08/08/17 05:30 36.8 73 18 110/63 (79) 94 Nasal Cannula 2.0 08/08/17 04:10 96 Nasal Cannula 2.0 08/08/17 00:05 96 Nasal Cannula 2.0 08/07/17 23:45 36.8 74 20 154/76 (102) 96 Nasal Cannula 08/07/17 23:07 70 18 97 Nasal Cannula 4.0 08/07/17 20:21 73 18 95 Nasal Cannula 4.0 08/07/17 20:15 97 Nasal Cannula 2.0 08/07/17 19:45 36.9 81 20 168/70 (102) 97 Nasal Cannula 3.0 08/07/17 19:02 36.7 68 22 148/82 (104) 97 Nasal Cannula 4.0 08/07/17 16:00 Nasal Cannula 2.0 08/07/17 15:33 36.7 78 22 125/79 (94) 97 High Flow Oxygen 8.0 Mask 08/07/17 15:26 82 18 92 Nasal Cannula 4.0 Lab Results: Results Past 24 Hours Test 08/07/17 16:35 08/08/17 05:39 08/08/17 10:17 08/08/17 12:50 Range/Units Urine Color YELLOW Urine Appearance CLEAR CLEAR Urine pH 5.5 4.5-7.5 Urine Specific [place] 1.019 1.000-1.030 Urine Protein NEG NEG Urine Glucose (UA) NEG NEG Urine Ketones TRACE NEG Urine Occult Blood NEG NEG Urine Nitrite NEG NEG Urine Bilirubin NEG NEG Urine Urobilinogen NEG NEG Urine Leukocyte Esterase NEG NEG White Blood Count 16.19 4.8-10.8 K/uL Red Blood Count 3.41 4.2-5.4 M/uL Hemoglobin 11.1 12.0-16.0 g/dL Hematocrit 30.4 37-47 % Mean Corpuscular Volume 89.1 80-100 fL Mean Corpuscular Hemoglobin 32.6 25-34 pg Mean Corpuscular Hemoglobin Concent 36.5 32-36 g/dl RDW Standard Deviation 42.3 36.4-46.3 fL RDW Coefficient of Variation 13.1 11.5-14.5 % Platelet Count 270 130-400 K/uL Mean Platelet Volume 9.0 7.4-10.4 fL Sodium Level 127 126 136-145 mmol/L Potassium Level 3.0 3.5 3.5-5.1 mmol/L Chloride Level 93 93 98-107 mmol/L Carbon Dioxide Level 27 28 21-32 mmol/L Anion Gap 7.0 5.0 3-11 mmol/L Blood Urea Nitrogen 15 14 7-18 mg/dl Creatinine 0.76 0.77 0.60-1.20 mg/dl Est Creatinine Clear Calc Drug Dose 70.9 70.0 ml/min Estimated GFR () 92.1 90.7 Estimated GFR (Non- 79.5 78.2 BUN/Creatinine Ratio 19.9 18.7 10-20 Random Glucose 139 106 70-99 mg/dl Calcium Level 8.3 8.6 8.5-10.1 mg/dl Magnesium Level 1.8 1.8-2.4 mg/dl
[2017-08-08] MEDS: MoRPHine SULFATE 4 MG/ML 1 ML CARP\\VIAL IV PRN (13:40)
--- NOTE | 2017-08-08 14:01 | Anesthesiology Progress Note ---
Anesthesia Progress Note Date of Service Aug 08, 2017. Progress Notes The patient is a 71 y/o female scheduled for a L VATS tomorrow with Dr. Harper. She is a long time smoker and noted L sided chest pain after a fit of coughing. She went to the hospital and was found to have a L pneumothorax. A chest tube was placed and subsequent imaging has revealed a possible L lung abscess. PMH includes asthma, COPD, CAD, HTN, dyslipidemia, GERD,lumbago, hyponatremia of unknown origin, anemia, and recent steroid use for COPD exacerbation. She has a 50 pack year smoking history. She had a previous CABG for atrial myxoma with no anesthesia problems. Her recent chest CT showed a L sided chest tube, 30% ptx, and extensive subcutaneous emphysema. Her EKG shows sinus bradycardia with AV block. Labs are significant for WBC 16.2, hgb 11.1, sodium 126, and chloride 93. Her current SpO2 is 95 on 3 liters NC. On exam the patient was sitting comfortably on her bed although she is anxious about having surgery. She had good neck ROM and has a MP 1 airway. She is edentulous. She has wheezing in bilateral lung lynn with some decreased breath sounds in the lower left lung. Heart is RRR. No carotid bruit noted. She is an ASA 3. The patient had a type and screen placed. Her electrolytes will be checked tomorrow. She was consented for general anesthesia with arterial line placement. She was counseled to remain NPO after midnight except for sips of water with pills.
--- NOTE | 2017-08-08 14:47 | Progress Note ---
Subjective Date of Service: Aug 08, 2017. Subjective Pt evaluation today including: conversation w/ patient, physical exam, chart review, lab review pt with some pain at chest tube site, had cough today, non productive. no f/c. tolerating abx. all micro negative to date. no abd pain, no n/v/d. no f/c. For biopsy tomorrow. min fluid in chest tube, serosang. all remaining ros reviewed and are negative. Objective Vital Signs Date Time Temp Pulse Resp B/P (MAP) Pulse Ox O2 Delivery O2 Flow Rate FiO2 08/08/17 12:00 95 Nasal Cannula 3.0 08/08/17 11:14 94 15 91 Room Air 08/08/17 08:22 36.4 71 18 147/84 (105) 92 Room Air 08/08/17 08:21 92 Room Air 08/08/17 08:00 97 Nasal Cannula 3.0 08/08/17 07:51 59 18 98 Nasal Cannula 3.0 08/08/17 05:30 36.8 73 18 110/63 (79) 94 Nasal Cannula 2.0 08/08/17 04:10 96 Nasal Cannula 2.0 08/08/17 00:05 96 Nasal Cannula 2.0 08/07/17 23:45 36.8 74 20 154/76 (102) 96 Nasal Cannula 08/07/17 23:07 70 18 97 Nasal Cannula 4.0 08/07/17 20:21 73 18 95 Nasal Cannula 4.0 08/07/17 20:15 97 Nasal Cannula 2.0 08/07/17 19:45 36.9 81 20 168/70 (102) 97 Nasal Cannula 3.0 08/07/17 19:02 36.7 68 22 148/82 (104) 97 Nasal Cannula 4.0 08/07/17 16:00 Nasal Cannula 2.0 08/07/17 15:33 36.7 78 22 125/79 (94) 97 High Flow Oxygen 8.0 Mask 08/07/17 15:26 82 18 92 Nasal Cannula 4.0 Physical Exam General Appearance: WD/WN, no apparent distress Eyes: normal inspection, EOMI Neck: supple Respiratory/Chest: + decreased breath sounds Cardiovascular: regular rate, rhythm, no edema Abdomen: non tender, soft Extremities: non-tender, normal inspection, no pedal edema Neurologic/Psychiatric: alert, oriented x 3 Skin: normal color, warm/dry, no rash Laboratory Results Item Value Date Time Blood Culture - Preliminary Resulted 08/06/171930 Blood NO GROWTH TO DATE. Blood Culture - Preliminary Resulted 08/06/171936 Blood NO GROWTH TO DATE. Gram Stain - Final Resulted 08/06/17 2300 Sputum Expectorated Sputum Last 24 Hours Test 08/07/17 16:35 08/08/17 05:39 08/08/17 10:17 08/08/17 12:50 Urine Color YELLOW Urine Appearance CLEAR Urine pH 5.5 Urine Specific [place] 1.019 Urine Protein NEG Urine Glucose (UA) NEG Urine Ketones TRACE Urine Occult Blood NEG Urine Nitrite NEG Urine Bilirubin NEG Urine Urobilinogen NEG Urine Leukocyte Esterase NEG White Blood Count 16.19 K/uL Red Blood Count 3.41 M/uL Hemoglobin 11.1 g/dL Hematocrit 30.4 % Mean Corpuscular Volume 89.1 fL Mean Corpuscular Hemoglobin 32.6 pg Mean Corpuscular Hemoglobin Concent 36.5 g/dl RDW Standard Deviation 42.3 fL RDW Coefficient of Variation 13.1 % Platelet Count 270 K/uL Mean Platelet Volume 9.0 fL Sodium Level 127 mmol/L 126 mmol/L Potassium Level 3.0 mmol/L 3.5 mmol/L Chloride Level 93 mmol/L 93 mmol/L Carbon Dioxide Level 27 mmol/L 28 mmol/L Anion Gap 7.0 mmol/L 5.0 mmol/L Blood Urea Nitrogen 15 mg/dl 14 mg/dl Creatinine 0.76 mg/dl 0.77 mg/dl Est Creatinine Clear Calc Drug Dose 70.9 ml/min 70.0 ml/min Estimated GFR () 92.1 90.7 Estimated GFR (Non- 79.5 78.2 BUN/Creatinine Ratio 19.9 18.7 Random Glucose 139 mg/dl 106 mg/dl Calcium Level 8.3 mg/dl 8.6 mg/dl Magnesium Level 1.8 mg/dl Assessment and Plan (1) Pleural effusion Assessment & Plan: ? infectious vs malignant. cultures negative so far, will continue abx pending biopsy findings. please send culture and path. will follow (2) Pneumothorax
[2017-08-08] MEDS: HYDROmorphone INJ 0.5 MG/0.5 ML SYR IV PRN (14:55)
--- NOTE | 2017-08-08 21:52 | DIAGNOSTIC IMAGING REPORT ---
CHEST ONE VIEW PORTABLE CLINICAL HISTORY: CHEST TUBE CAME OUT COMPARISON STUDY: Chest radiograph August 07, 2017. FINDINGS: Left chest tube is no longer in place. Extensive subcutaneous gas within left chest wall is noted. A small amount of gas within the left lower neck is noted. A small left pneumothorax is now visualized. Left mid and lower lung airspace opacity has slightly increased. There are median sternotomy wires. IMPRESSION: 1. Interval development of a small left pneumothorax. Left chest tube no longer in place. 2. Increase in left lower lung airspace opacity. Possible small left pleural effusion. Electronically signed by: Hung Hebert M.D. 08/08/2017 9:51 PM Dictated Date/Time: 08/08/2017 9:48 PM
[2017-08-08] MEDS: MONTELUKAST SOD 10 MG TAB PO SCH (22:18)
[2017-08-08] MEDS: ATORVASTATIN 10 MG TAB PO SCH (22:18)
[2017-08-08] MEDS: RANITIDINE HCL 150 MG TAB PO SCH (22:18)
[2017-08-08] MEDS: BUDESONIDE/FORMOTEROL FUMARATE 160/4.5 60 PUFFS/INHALER INH SCH (22:19)
[2017-08-09] VITALS (14 sets, daily range): BP systolic 115–145; BP diastolic 63–83; PULSE 71–114; TEMP 36.6–37; O2SAT 92–96
[2017-08-09] MEDS: LEVALBUTEROL 1.25MG/0.5ML NEB INH SCH ×5 (03:16→19:00)
[2017-08-09] MEDS: IPRATROPIUM BROMIDE NEB SOLN 0.02% 2.5 ML VIAL INH SCH ×5 (03:16→19:00)
[2017-08-09] MEDS: IMIPENEM/CILASTATIN IV 500 MG in D5W 100ML IV SCH ×4 (04:37→21:45)
[2017-08-09 06:36] LABS: HEMATOCRIT 34.5 % (37-47); MEAN CELL VOLUME 90.8 fL (80-100); MEAN CORPUSCULAR HEMOGLOBIN 30.8 pg (25-34); MEAN CORPUSCULAR HGB CONC 33.9 g/dl (32-36); MEAN PLATELET VOLUME 9.2 fL (7.4-10.4); PLATELET COUNT 336 K/uL (130-400); WHITE BLOOD COUNT 12.53 K/uL (4.8-10.8)
[2017-08-09 07:11] LABS: BUN/CREATININE RATIO 16.8 (10-20); CALCIUM 9.2 mg/dl (8.5-10.1); CREATININE 0.71 mg/dl (0.60-1.20); POTASSIUM 3.9 mmol/L (3.5-5.1)
[2017-08-09] MEDS: OXYCODONE HCL IR 5 MG TAB (IMMEDIATE RELEASE) PO PRN (07:24)
[2017-08-09] MEDS: LOSARTAN POTASSIUM 50 MG TAB PO SCH (07:25)
[2017-08-09] MEDS: TIOTROPIUM BROMIDE 28 PUFF/4 GM INH INH SCH (07:27)
[2017-08-09] MEDS: BUDESONIDE/FORMOTEROL FUMARATE 160/4.5 60 PUFFS/INHALER INH SCH ×2 (07:27→20:31)
[2017-08-09] MEDS: METOPROLOL TARTRATE 50 MG TAB PO SCH ×2 (07:31→16:29)
[2017-08-09] MEDS: FLUTICASONE/SALMETEROL 250/50 (ADVAIR) 14 PUFF/1 INHALER INH SCH ×2 (08:05→20:30)
[2017-08-09] MEDS: NICOTINE 14 MG/24 HR TDSY TD SCH (08:05)
[2017-08-09] MEDS: MULTIVITAMIN TAB PO SCH (08:06)
[2017-08-09] MEDS: MAGNESIUM OXIDE 400 MG TAB PO SCH ×2 (08:06→20:32)
[2017-08-09] MEDS: CALCIUM 600MG + VIT D 400 IU TAB PO SCH (08:06)
[2017-08-09] MEDS: DOCUSATE SODIUM 100 MG CAP PO SCH (08:06)
[2017-08-09] MEDS: GABAPENTIN 300 MG CAP PO SCH ×3 (08:06→20:32)
[2017-08-09] MEDS: PANTOprazole SOD 40 MG TAB PO SCH (08:07)
[2017-08-09] MEDS ORDERED: FENTANYL CITRATE INJ 50 MCG/1 ML 2 ML VIAL ONE ×3 (09:59→12:38)
[2017-08-09] MEDS ORDERED: DEXAMETHASONE SOD INJ 4 MG/ML VIAL ONE (09:59)
[2017-08-09] MEDS ORDERED: NEOSTIGMINE METHYLSULFATE 5 MG/5 ML SYR ONE (09:59)
[2017-08-09] MEDS ORDERED: ONDANSETRON INJ 2 MG/ML 2 ML VIAL ONE (09:59)
[2017-08-09] MEDS ORDERED: GLYCOPYRROLATE INJ 0.2 MG/ML VIAL ONE (09:59)
[2017-08-09] MEDS ORDERED: MIDAZOLAM HCL 1 MG/ML 2ML VIAL ONE (09:59)
[2017-08-09] MEDS ORDERED: PROPOFOL IV EMULSION 10 MG/ML 20 ML VIAL IV ONE (09:59)
[2017-08-09] MEDS ORDERED: LIDOCAINE HCL 2% 2 ML VIAL (20MG/ML) ONE (09:59)
--- NOTE | 2017-08-09 10:27 | History & Physical Bridge Note ---
H&P Re-Evaluation Bridge Note: I have examined the patient, reviewed the History & Physical and in the interval since the performance of the History & Physical I have noted the following changes of clinical significance: Patient's chest tube came out last pm, but the CXR was stable, Will be on standby to insert chest tube if necessary upon intubation and positive pressure ventilation. She is clinically stable. Long discussion with patient's daughter yesterday. No changes noted
[2017-08-09] MEDS ORDERED: BUPIVACAINE LIPOSOME 1/3% 266 MG/20 ML VIAL INFIL ONE (10:45)
[2017-08-09] MEDS ORDERED: SODIUM CHLORIDE 0.9% PF 50 ML VIAL ONE (10:45)
[2017-08-09] MEDS ORDERED: KETOROLAC TROMETHAMINE 30 MG/ML VIAL IV. PRN (11:00)
[2017-08-09] MEDS ORDERED: ATROPINE SULFATE 0.1 MG/ML 5ML SYR IV PRN (11:00)
[2017-08-09] MEDS ORDERED: LABETALOL HCL IV 5 MG/ML 20ML IV PRN (11:00)
[2017-08-09] MEDS ORDERED: ONDANSETRON INJ 2 MG/ML 2 ML VIAL IV PRN ×2 (11:00→14:45)
[2017-08-09] MEDS ORDERED: ALBUTEROL 0.083% NEBU SOLN 3 ML VIAL INH PRN (11:15)
[2017-08-09] MEDS ORDERED: VANCOMYCIN HCL 1000MG/20ML VIAL ONE (11:51)
[2017-08-09] MEDS ORDERED: GENTAMICIN SULFATE 40 MG/ML 2 ML VIAL ONE (11:52)
--- NOTE | 2017-08-09 11:54 | Progress Note ---
Subjective Date of Service: Aug 09, 2017. Subjective pt off of floor for biopsy, remains afebrile. remains on imipenem emperically. no f/c. no overnight events. all micro remains negative. Objective Vital Signs Date Time Temp Pulse Resp B/P (MAP) Pulse Ox O2 Delivery O2 Flow Rate FiO2 08/09/17 10:43 37 82 18 125/84 (98) 95 Nasal Cannula 2 08/09/17 08:00 36.9 98 20 135/83 (100) 94 Nasal Cannula 2.0 08/09/17 08:00 Nasal Cannula 2.0 08/09/17 07:22 114 16 94 Nasal Cannula 2.0 08/09/17 05:34 37.0 104 20 123/82 (96) 92 Nasal Cannula 2.0 08/09/17 04:00 95 Nasal Cannula 2.0 08/09/17 03:16 93 16 94 Nasal Cannula 2.0 08/09/17 00:00 95 Nasal Cannula 2.0 08/09/17 00:00 36.9 72 18 145/63 (90) 94 08/08/17 23:32 97 16 94 Nasal Cannula 2.0 08/08/17 20:00 93 Nasal Cannula 2.0 08/08/17 19:45 89 16 94 Nasal Cannula 2.0 08/08/17 19:00 37.3 91 19 131/54 (79) 93 Nasal Cannula 2.0 08/08/17 16:00 96 Nasal Cannula 3.0 08/08/17 15:42 92 Room Air 08/08/17 15:40 36.2 80 20 149/79 (102) 92 Room Air 08/08/17 15:30 36.2 85 16 149/79 (102) 95 Nasal Cannula 2.0 08/08/17 12:00 95 Nasal Cannula 3.0 Laboratory Results Item Value Date Time Gram Stain - Final Complete 08/06/17 2300 Sputum Expectorated Sputum Blood Culture - Preliminary Resulted 08/06/171936 Blood NO GROWTH TO DATE. Blood Culture - Preliminary Resulted 08/06/171930 Blood NO GROWTH TO DATE. Last 24 Hours Test 08/09/17 05:35 08/09/17 06:01 Urine Osmolality 90 mOms/kg White Blood Count 12.53 K/uL Red Blood Count 3.80 M/uL Hemoglobin 11.7 g/dL Hematocrit 34.5 % Mean Corpuscular Volume 90.8 fL Mean Corpuscular Hemoglobin 30.8 pg Mean Corpuscular Hemoglobin Concent 33.9 g/dl RDW Standard Deviation 44.6 fL RDW Coefficient of Variation 13.4 % Platelet Count 336 K/uL Mean Platelet Volume 9.2 fL Sodium Level 134 mmol/L Potassium Level 3.9 mmol/L Chloride Level 100 mmol/L Carbon Dioxide Level 28 mmol/L Anion Gap 6.0 mmol/L Blood Urea Nitrogen 12 mg/dl Creatinine 0.71 mg/dl Est Creatinine Clear Calc Drug Dose 77.3 ml/min Estimated GFR () 100.0 Estimated GFR (Non- 86.3 BUN/Creatinine Ratio 16.8 Random Glucose 132 mg/dl Calcium Level 9.2 mg/dl Magnesium Level 2.0 mg/dl Assessment and Plan (1) Pleural effusion Assessment & Plan: ? infectious vs malignant. cultures negative so far, will continue abx pending biopsy findings. please send culture and path. will follow (2) Pneumothorax
[2017-08-09] MEDS ORDERED: CLINDAMYCIN PHOS 150 MG/ML 2 ML VIAL ONE ×2 (11:56→11:58)
[2017-08-09] MEDS ORDERED: ROCURONIUM BROMIDE 10 MG/ML 5 ML VIAL IV ONE (14:24)
[2017-08-09] MEDS: HYDROmorphone INJ 2 MG/ML SYR/VIAL IV PRN ×4 (15:09→15:24)
--- NOTE | 2017-08-09 15:37 | DIAGNOSTIC IMAGING REPORT ---
CHEST ONE VIEW PORTABLE CLINICAL HISTORY: Left lung resection. COMPARISON STUDY: Chest radiograph August 08, 2017. FINDINGS: Extensive subcutaneous gas within left chest wall and lower neck has increased since prior exam. There has been interval placement of a left-sided chest tube. A small left pneumothorax is noted with superior pleural separation of 1.6 cm. This is slightly decreased in size since prior exam. There is left lung airspace opacity. Cardiac size is stable. There are median sternotomy wires. IMPRESSION: 1. Interval placement of a left-sided chest tube. Small left pneumothorax, decreased in size since prior exam. 2. Slight increase in left lung airspace opacity. 3. Increase in subcutaneous gas within left chest wall and lower neck. Electronically signed by: Hung Hebert M.D. 08/09/2017 3:36 PM Dictated Date/Time: 08/09/2017 3:35 PM
--- NOTE | 2017-08-09 15:49 | Anesthesiology Progress Note ---
Anesthesia Post Op Note Date & Time Aug 09, 2017 at 15:48 Vital Signs Pain Intensity: 2 Vital Signs Past 12 Hours Date Time Temp Pulse Resp B/P (MAP) Pulse Ox O2 Delivery O2 Flow Rate FiO2 08/09/17 15:40 36.8 74 16 130/64 97 Oxymask 10 08/09/17 15:30 69 16 130/63 97 Oxymask 10 08/09/17 15:20 36.0 75 16 126/70 100 Oxymask 10 08/09/17 15:10 76 16 102/64 100 Oxymask 10 08/09/17 15:01 35.5 94 16 107/72 100 Oxymask 10 08/09/17 10:43 37 82 18 125/84 (98) 95 Nasal Cannula 2 08/09/17 08:00 36.9 98 20 135/83 (100) 94 Nasal Cannula 2.0 08/09/17 08:00 Nasal Cannula 2.0 08/09/17 07:22 114 16 94 Nasal Cannula 2.0 08/09/17 05:34 37.0 104 20 123/82 (96) 92 Nasal Cannula 2.0 08/09/17 04:00 95 Nasal Cannula 2.0 Notes Mental Status: alert / awake / arousable, participated in evaluation Pt Amnestic to Procedure: Yes Nausea / Vomiting: adequately controlled Pain: adequately controlled Airway Patency, RR, SpO2: stable & adequate BP & HR: stable & adequate Hydration State: stable & adequate Anesthetic Complications: no major complications apparent
--- NOTE | 2017-08-09 15:54 | Progress Note ---
Internal Med Progress Note Date of Service: Aug 09, 2017. Provider Documentation: SUBJECTIVE: Seen and examined at bedside after the procedure Got robot-assisted left thoracoscopic evacuation of pleural contents and wedge resection of left upper lobe. States having soreness at the surgical site. Denies SOB, dizziness Offers no other complaints OBJECTIVE: Vital Signs-as noted below Physical Exam: General Appearance:Moderately built and nourished, no apparent distress Head: normocephalic, Atraumatic Eyes: normal inspection, EOMI, PERRL Neck: supple, Trachea midline Respiratory/Chest: Decreased breath sounds, CTA, + Left chest surgical site in bandage Cardiovascular: S1, S2, No murmur Abdomen/GI:Soft, Non tender, Bowel sounds present Extremities/Musculoskelatal:normal inspection, no edema Neurologic/Psych:grossly no focal neurological deficits Skin: normal color, warm Lab data as noted below. ASSESSMENT & PLAN: Patient is a 71 yr female with H/O CAD/CABG, HTN, COPD presenting with left sided chest pain. LEFT SIDED PNEUMOTHORAX Left upper lobe Abscess/Mucus Plugging S/P wedge resection of left upper lobe abnormality POD # 0 chest tube readjusted after initial Chest tube placed in [facility] which was displaced CT chest showed 30% left-sided pneumothorax, extensive subcutaneous emphysema over the left hemithorax and small L effusion with partial LLL atelectasis Appreciate Pulmonology/CT surgery help Patient had L thoracoscopic evacuation of pleural contents and wedge resection of left upper lobe abnormality on 08/09 Continue Primaxin Appreciate ID Input Blood/Sputum culture negative Bronchial cultures pending COPD H/O chronic tobacco use Continue home inhalers pulmonology and CT surgery following counselled for smoking cessation CAD/CABG Held ASA, Plavix for thoracoscopic eval continue Losartan, Metoprolol hold Lasix for now Hyponatremia/Hypokalemia: Replace and monitor HTN continue Losartan, Metoprolol DVT PX SCDs for now Code Status FULL CODE DISPOSITION anticipate d/c home when medically stable will need PT/OT eval prior to discharge follows with Family practice at [facility] would like to follow up with Pulmonology Dr Duncan in [place] Vital Signs: Date Time Temp Pulse Resp B/P (MAP) Pulse Ox O2 Delivery O2 Flow Rate FiO2 08/09/17 19:28 36.9 81 20 115/68 (84) 96 Nasal Cannula 2.0 08/09/17 19:00 71 22 95 Nasal Cannula 2.5 08/09/17 17:13 75 17 137/81 (99) 94 Nasal Cannula 4.0 08/09/17 16:20 74 16 96 Nasal Cannula 3.0 08/09/17 16:15 94 Nasal Cannula 4.0 08/09/17 16:12 36.6 75 18 138/82 (100) 94 Nasal Cannula 4.0 08/09/17 15:40 36.8 74 16 130/64 97 Oxymask 10 08/09/17 15:30 69 16 130/63 97 Oxymask 10 08/09/17 15:20 36.0 75 16 126/70 100 Oxymask 10 08/09/17 15:10 76 16 102/64 100 Oxymask 10 08/09/17 15:01 35.5 94 16 107/72 100 Oxymask 10 08/09/17 10:43 37 82 18 125/84 (98) 95 Nasal Cannula 2 08/09/17 08:00 36.9 98 20 135/83 (100) 94 Nasal Cannula 2.0 08/09/17 08:00 Nasal Cannula 2.0 08/09/17 07:22 114 16 94 Nasal Cannula 2.0 08/09/17 05:34 37.0 104 20 123/82 (96) 92 Nasal Cannula 2.0 08/09/17 04:00 95 Nasal Cannula 2.0 08/09/17 03:16 93 16 94 Nasal Cannula 2.0 08/09/17 00:00 95 Nasal Cannula 2.0 08/09/17 00:00 36.9 72 18 145/63 (90) 94 08/08/17 23:32 97 16 94 Nasal Cannula 2.0 08/08/17 20:00 93 Nasal Cannula 2.0 08/08/17 19:45 89 16 94 Nasal Cannula 2.0 Lab Results: Results Past 24 Hours Test 08/09/17 05:35 08/09/17 06:01 Range/Units Urine Osmolality 90 500-800 mOms/kg White Blood Count 12.53 4.8-10.8 K/uL Red Blood Count 3.80 4.2-5.4 M/uL Hemoglobin 11.7 12.0-16.0 g/dL Hematocrit 34.5 37-47 % Mean Corpuscular Volume 90.8 80-100 fL Mean Corpuscular Hemoglobin 30.8 25-34 pg Mean Corpuscular Hemoglobin Concent 33.9 32-36 g/dl RDW Standard Deviation 44.6 36.4-46.3 fL RDW Coefficient of Variation 13.4 11.5-14.5 % Platelet Count 336 130-400 K/uL Mean Platelet Volume 9.2 7.4-10.4 fL Sodium Level 134 136-145 mmol/L Potassium Level 3.9 3.5-5.1 mmol/L Chloride Level 100 98-107 mmol/L Carbon Dioxide Level 28 21-32 mmol/L Anion Gap 6.0 3-11 mmol/L Blood Urea Nitrogen 12 7-18 mg/dl Creatinine 0.71 0.60-1.20 mg/dl Est Creatinine Clear Calc Drug Dose 77.3 ml/min Estimated GFR () 100.0 Estimated GFR (Non- 86.3 BUN/Creatinine Ratio 16.8 10-20 Random Glucose 132 70-99 mg/dl Calcium Level 9.2 8.5-10.1 mg/dl Magnesium Level 2.0 1.8-2.4 mg/dl Microbiology Results 08/09/17 Fungal Smear, Received Pending 08/09/17 Fungal Culture, Received Pending 08/09/17 Acid Fast Stain, Received Pending 08/09/17 Mycobacterial Culture, Received Pending 08/09/17 Gram Stain, Received Pending 08/09/17 Bronchoalveolar Lavage Culture, Received Pending 08/09/17 Acid Fast Stain, Received Pending 08/09/17 Mycobacterial Culture, Received Pending 08/09/17 Fungal Smear - Final, Resulted 08/09/17 Fungal Culture, Resulted Pending 08/09/17 Gram Stain - Final, Resulted 08/09/17 Wound Culture, Resulted Pending 08/09/17 Gram Stain - Final, Resulted 08/09/17 Wound Culture, Resulted Pending
[2017-08-09] MEDS: HYDROmorphone INJ 0.5 MG/0.5 ML SYR IV PRN (16:21)
[2017-08-09] MEDS: D5W AND 1/2NSS 1,000 ML IV SCH (16:28)
--- NOTE | 2017-08-09 16:42 | OPERATIVE REPORT ---
DATE OF OPERATION: 08/09/2017 PREOPERATIVE DIAGNOSIS: Apparent abscess with consolidation in the left lower lobe. POSTOPERATIVE DIAGNOSIS: 1. Apparent abscess in the inferior medial aspect of the left upper lobe. 2. Mucus plugging. PROCEDURE: Robot-assisted left thoracoscopic evacuation of pleural contents and wedge resection of left upper lobe abnormality. SURGEON: Dr. Harper. FINANCIAL PROFESSIONAL: Sandro Sandoval PA-C. ANESTHESIA: General anesthesia endotracheal intubation with double lumen tube. SPECIFICS OF PROCEDURE: This is a 71-year-old female who presented with a spontaneous pneumothorax and was found to have complete consolidation of the left lower lobe which appeared to be an abscess which appeared to me to be coming from the lower lobe. A chest tube was placed which was not in correct position and then this was replaced by another chest tube a few days ago. She responded nicely to this however this tube came out inadvertently last night. She was in no respiratory distress. We repeated a chest x-ray. It showed that her pneumothorax is quite small. I elected to leave the tube out and take her to the operating room this morning. On 08/09/2017 the patient was brought to the operating room and underwent an uncomplicated robotic assisted left thoracoscopy. A few adhesions were taken down, but what really stood out to me was the fact that her left lower lobe looked fine, it was just atelectatic. I could palpate no abnormalities. She really did not have much in the way of pleural content. She did have a very large purple ballottable area in her fissure which was purplish. After dissecting out the fissure it could be seen that this was actually coming from the upper lobe medially along the lingular segment. It was rather large. I opened it up and there old blood inside of it. I then wedged out a large segment of this and closed the pleura using a running 3-0 suture. I irrigated the chest, we had very little in the way of an air leak. Exparel block was done with 266 mg mixed in 60 mL normal saline and used to inject each interspace medially. PROCEDURE: The patient was brought to the operating room and laid in supine position. General anesthesia induced and endotracheal intubation was performed with a double lumen tube. The patient has placed right lateral decubitus position. Left chest prepped and draped in usual sterile fashion. Three working arms as well as a camera port were placed anteriorly between the 2 anterior incisions but a couple interspaces below. There were some adhesions that were taken down bluntly and sharply but what really set out to me was the fact that there was some fibrinous material which was handed off but this cleaned the pleural cavity nicely. I saw him no significant lymphadenopathy. The fluid was sent for culture, sensitivity and cytology. After irrigating out the chest I then noted that there was a purple ballottable area between the fissures. After this from the lower lobe it could be seen this was coming from the upper lobe. I opened this area, it was old blood which was sent for culture. I then wedged this entire area out after opening it up and closed the defect using a running 2-0 suture. This came together nicely after I had wedged out the part of the lingula medially. We did not have much of an air leak. We then extubated the patient and reintubated her with an 8.5 mm tube. I then went with my bronchoscope and it could be seen there was a tremendous amount of sputum, especially on the left side. This was inspissated. After irrigating it out multiple times I was able to open it up and I saw no abnormalities of the left lower lobe except for some mucosal heaping but really there was no extrinsic compression and did not appear that there was any mass effect. A 24-Comor[place] chest tube was placed in the anterior thoracoscopy port and sutured in place with heavy silk suture. The other port sites were closed with 0 Vicryl to close the muscle layers and 4-0 Vicryl to close the skin layers. There is a very tiny air leak, but she awakened without difficulty from the procedure. We did do an Exparel block with 266 mg of Exparel and 60 mL total normal saline. All in all I was quite happy with her and her lung appeared to be expanded on chest x-ray. I attest to the content of the Intraoperative Record and any orders documented therein. Any exceptions are noted below. MTDD
[2017-08-09] MEDS: MoRPHine SULFATE 4 MG/ML 1 ML CARP\\VIAL IV PRN (18:02)
[2017-08-09] MEDS: ACETAMINOPHEN IV 1,000 MG in EMPTY BAG 0 ML IV SCH (20:30)
[2017-08-09] MEDS: MoRPHine SULFATE 2 MG/ML CARP IV PRN ×2 (20:30→23:50)
[2017-08-09] MEDS: ATORVASTATIN 10 MG TAB PO SCH (20:32)
[2017-08-09] MEDS: RANITIDINE HCL 150 MG TAB PO SCH (20:33)
[2017-08-09] MEDS: MONTELUKAST SOD 10 MG TAB PO SCH (20:33)
[2017-08-09] MEDS: CLINDAMYCIN IV 900 MG in DEXTROSE 5% 100ML 100 ML IV SCH (20:48)
[2017-08-09] MEDS ORDERED: DOCUSATE SODIUM 100 MG CAP PO SCH (21:00)
[2017-08-09] MEDS: METOCLOPRAMIDE HCL INJ 5 MG/ML 2 ML VIAL IV. SCH (22:07)
[2017-08-10] VITALS (16 sets, daily range): BP systolic 106–160; BP diastolic 64–80; PULSE 64–93; TEMP 36.4–36.7; O2SAT 91–97
[2017-08-10] MEDS: IPRATROPIUM BROMIDE NEB SOLN 0.02% 2.5 ML VIAL INH SCH ×7 (00:05→23:28)
[2017-08-10] MEDS: LEVALBUTEROL 1.25MG/0.5ML NEB INH SCH ×7 (00:05→23:28)
[2017-08-10] MEDS: CLINDAMYCIN IV 900 MG in DEXTROSE 5% 100ML 100 ML IV SCH (01:56)
[2017-08-10] MEDS: D5W AND 1/2NSS 1,000 ML IV SCH (01:56)
[2017-08-10] MEDS: MoRPHine SULFATE 2 MG/ML CARP IV PRN (04:14)
[2017-08-10] MEDS ORDERED: NURSING DECISION MEDICATION ORDER SCH (04:15)
[2017-08-10] MEDS: ACETAMINOPHEN IV 1,000 MG in EMPTY BAG 0 ML IV SCH ×2 (04:17→11:23)
[2017-08-10] MEDS ORDERED: COUGH DROP (SUGAR FREE) LOZ 24 LOZ/1 BOX ONE (04:20)
[2017-08-10] MEDS: IMIPENEM/CILASTATIN IV 500 MG in D5W 100ML IV SCH ×4 (04:24→21:22)
[2017-08-10] MEDS ORDERED: COUGH DROP (SUGAR FREE) LOZ 24 LOZ/1 BOX PO PRN (04:45)
[2017-08-10] MEDS: METOCLOPRAMIDE HCL INJ 5 MG/ML 2 ML VIAL IV. SCH ×2 (06:00→14:00)
[2017-08-10] MEDS: METOPROLOL TARTRATE 50 MG TAB PO SCH ×2 (06:10→16:11)
[2017-08-10 07:02] LABS: HEMATOCRIT 30.3 % (37-47); MEAN CELL VOLUME 91.8 fL (80-100); MEAN CORPUSCULAR HEMOGLOBIN 30.9 pg (25-34); MEAN CORPUSCULAR HGB CONC 33.7 g/dl (32-36); MEAN PLATELET VOLUME 9.3 fL (7.4-10.4); PLATELET COUNT 323 K/uL (130-400); WHITE BLOOD COUNT 18.25 K/uL (4.8-10.8)
[2017-08-10 07:35] LABS: BUN/CREATININE RATIO 10.4 (10-20); CALCIUM 8.8 mg/dl (8.5-10.1); CREATININE 0.78 mg/dl (0.60-1.20); MAGNESIUM 2.1 mg/dl (1.8-2.4)
[2017-08-10] MEDS: FLUTICASONE/SALMETEROL 250/50 (ADVAIR) 14 PUFF/1 INHALER INH SCH ×2 (07:51→21:00)
[2017-08-10] MEDS: TIOTROPIUM BROMIDE 28 PUFF/4 GM INH INH SCH (07:52)
[2017-08-10] MEDS: MULTIVITAMIN TAB PO SCH (07:53)
[2017-08-10] MEDS: BUDESONIDE/FORMOTEROL FUMARATE 160/4.5 60 PUFFS/INHALER INH SCH ×2 (07:53→21:17)
[2017-08-10] MEDS: DOCUSATE SODIUM 100 MG CAP PO SCH (07:53)
[2017-08-10] MEDS: MAGNESIUM OXIDE 400 MG TAB PO SCH ×2 (07:53→21:20)
[2017-08-10] MEDS: CALCIUM 600MG + VIT D 400 IU TAB PO SCH (07:53)
[2017-08-10] MEDS: LOSARTAN POTASSIUM 50 MG TAB PO SCH (07:54)
[2017-08-10] MEDS: NICOTINE 14 MG/24 HR TDSY TD SCH (07:54)
[2017-08-10] MEDS: PANTOprazole SOD 40 MG TAB PO SCH (07:54)
[2017-08-10] MEDS: GABAPENTIN 300 MG CAP PO SCH ×3 (07:54→21:20)
[2017-08-10] MEDS: ENOXAPARIN 40 MG/0.4 ML SYR SQ SCH (07:55)
--- NOTE | 2017-08-10 08:09 | DIAGNOSTIC IMAGING REPORT ---
CHEST ONE VIEW PORTABLE HISTORY: s/p left lung wedge resection COMPARISON: Chest 08/09/2017. FINDINGS: Left-sided chest tube remains unchanged in position. Small left pneumothorax has decreased in size. Left chest wall subcutaneous emphysema persists. There are poststernotomy changes. Bibasilar densities are nonspecific but favor subsegmental atelectasis. The heart is stable in size. IMPRESSION: Decrease in size in the small left pneumothorax. Left-sided chest tube is unchanged in position. Electronically signed by: Shawn Gonzalez M.D. 08/10/2017 8:07 AM Dictated Date/Time: 08/10/2017 8:06 AM
--- NOTE | 2017-08-10 10:04 | SURGERY PROGRESS NOTE ---
DATE: 08/10/2017 Ms. Guardado is seen today on 08/10/2017, one day status post robotic-assisted left thoracoscopy with excision of apparent parenchymal abscess versus hematoma. The patient has a very small air leak. I think her x-ray looks very good. She does have subcutaneous emphysema which is not surprising. We used carbon dioxide insufflation, and she has already had 2 chest tubes placed, so I would not be surprised to see subcutaneous emphysema. It appears less than it was on yesterday's film. I think she sounds good. She is sitting up in the chair eating breakfast. Her pain is much better than it was before the surgery. She is on 2 liters nasal cannula running anywhere from 95%-97% saturation. She is not tachypneic. Her vital signs are stable. She has put out very little through the chest tube. Less than 100 mL since surgery. She has been voiding well. Her lungs sound good, although she has subcutaneous emphysema. Chest tube has a tiny air leak. Her white count is 18,250 with a hemoglobin of 10.2. The platelet count is stable. Her sodium is 133, potassium is 4.0, chloride 100, bicarbonate 25, BUN and creatinine of 8 and 0.78 respectively. The bronchial washings show rare yeast. ASSESSMENT AND PLAN: Postoperative day #1 status post robot-assisted left thoracoscopy with excision of a mass. Frozen section shows necrotic lung. This did not look like an abscess. We drained very little fluid, and there was very little fluid in her chest at the time of surgery. We will discontinue her monitor and her IV fluids and get her up and moving around. I have explained how important it is for her to walk. She looks much better to me today.
[2017-08-10] MEDS: OXYCODONE HCL IR 5 MG TAB (IMMEDIATE RELEASE) PO PRN ×2 (10:11→19:19)
--- NOTE | 2017-08-10 10:57 | Progress Note ---
Internal Med Progress Note Date of Service: Aug 10, 2017. Provider Documentation: SUBJECTIVE: Seen and examined at bedside Doing well this morning Denies chest pain, SOB Has some soreness at the chest tube site Offers no other complaints OBJECTIVE: Vital Signs-as noted below Physical Exam: General Appearance:Moderately built and nourished, no apparent distress Head: normocephalic, Atraumatic Eyes: normal inspection, EOMI, PERRL Neck: supple, Trachea midline Respiratory/Chest: Decreased breath sounds, CTA, + chest tube Cardiovascular: S1, S2, No murmur Abdomen/GI:Soft, Non tender, Bowel sounds present Extremities/Musculoskelatal:normal inspection, no edema Neurologic/Psych:grossly no focal neurological deficits Skin: normal color, warm Lab data as noted below. ASSESSMENT & PLAN: Patient is a 71 yr female with H/O CAD/CABG, HTN, COPD presenting with left sided chest pain. LEFT SIDED PNEUMOTHORAX Left lung mass S/P robot-assisted left thoracoscopy with excision of a mass POD # 1 Continue Chest tube per CT surgery CT chest showed 30% left-sided pneumothorax, extensive subcutaneous emphysema over the left hemithorax and small L effusion with partial LLL atelectasis Appreciate Pulmonology/CT surgery help Continue Primaxin Leukocytosis persistent Appreciate ID Input Blood/Sputum culture negative Bronchial cultures: rare yeast Lung mass pathology pending COPD H/O chronic tobacco use Continue home inhalers pulmonology and CT surgery following counselled for smoking cessation Nicotine patch CAD/CABG Held ASA, Plavix for thoracoscopic eval continue Losartan, Metoprolol hold Lasix for now Plan to resume ASA/Plavix when appropriate Hyponatremia/Hypokalemia: Replace and monitor HTN continue Losartan, Metoprolol DVT PX SCDs for now Code Status FULL CODE DISPOSITION anticipate d/c home when medically stable will need PT/OT eval prior to discharge follows with Family practice at [place] area would like to follow up with Pulmonology Dr Duncan in [place] Vital Signs: Date Time Temp Pulse Resp B/P (MAP) Pulse Ox O2 Delivery O2 Flow Rate FiO2 08/10/17 07:28 70 20 95 Nasal Cannula 2.0 08/10/17 07:05 36.5 71 18 126/77 (93) 97 Nasal Cannula 2.0 08/10/17 06:10 84 106/64 (78) 08/10/17 04:00 36.7 91 20 110/66 (81) 96 Nasal Cannula 2.0 08/10/17 04:00 96 Nasal Cannula 2.0 08/10/17 03:05 74 22 94 Nasal Cannula 2.5 08/10/17 00:05 78 22 96 Nasal Cannula 2.5 08/10/17 00:00 Nasal Cannula 2.0 08/10/17 00:00 36.6 78 20 120/70 (87) 94 Nasal Cannula 2.0 08/09/17 20:00 94 Nasal Cannula 2.0 08/09/17 19:46 36.9 77 18 118/74 (89) 95 Nasal Cannula 2.0 08/09/17 19:28 36.9 81 20 115/68 (84) 96 Nasal Cannula 2.0 08/09/17 19:00 71 22 95 Nasal Cannula 2.5 08/09/17 17:13 75 17 137/81 (99) 94 Nasal Cannula 4.0 08/09/17 16:20 74 16 96 Nasal Cannula 3.0 08/09/17 16:15 94 Nasal Cannula 4.0 08/09/17 16:12 36.6 75 18 138/82 (100) 94 Nasal Cannula 4.0 08/09/17 15:40 36.8 74 16 130/64 97 Oxymask 10 08/09/17 15:30 69 16 130/63 97 Oxymask 10 08/09/17 15:20 36.0 75 16 126/70 100 Oxymask 10 08/09/17 15:10 76 16 102/64 100 Oxymask 10 08/09/17 15:01 35.5 94 16 107/72 100 Oxymask 10 Lab Results: Results Past 24 Hours Test 08/10/17 06:35 Range/Units White Blood Count 18.25 4.8-10.8 K/uL Red Blood Count 3.30 4.2-5.4 M/uL Hemoglobin 10.2 12.0-16.0 g/dL Hematocrit 30.3 37-47 % Mean Corpuscular Volume 91.8 80-100 fL Mean Corpuscular Hemoglobin 30.9 25-34 pg Mean Corpuscular Hemoglobin Concent 33.7 32-36 g/dl RDW Standard Deviation 45.9 36.4-46.3 fL RDW Coefficient of Variation 13.6 11.5-14.5 % Platelet Count 323 130-400 K/uL Mean Platelet Volume 9.3 7.4-10.4 fL Sodium Level 133 136-145 mmol/L Potassium Level 4.0 3.5-5.1 mmol/L Chloride Level 100 98-107 mmol/L Carbon Dioxide Level 25 21-32 mmol/L Anion Gap 8.0 3-11 mmol/L Blood Urea Nitrogen 8 7-18 mg/dl Creatinine 0.78 0.60-1.20 mg/dl Est Creatinine Clear Calc Drug Dose 70.8 ml/min Estimated GFR () 89.3 Estimated GFR (Non- 77.0 BUN/Creatinine Ratio 10.4 10-20 Random Glucose 214 70-99 mg/dl Calcium Level 8.8 8.5-10.1 mg/dl Magnesium Level 2.1 1.8-2.4 mg/dl Microbiology Results 08/09/17 Acid Fast Stain - Final, Resulted 08/09/17 Mycobacterial Culture, Resulted Pending 08/09/17 Fungal Smear - Final, Resulted 08/09/17 Fungal Culture, Resulted Pending 08/09/17 Gram Stain - Final, Resulted 08/09/17 Wound Culture, Resulted Pending 08/09/17 Gram Stain - Final, Resulted 08/09/17 Wound Culture, Resulted Pending
--- NOTE | 2017-08-10 10:57 | Anesthesiology Progress Note ---
Anesthesia Post Op Note Date & Time Aug 10, 2017 at 10:56 Vital Signs Pain Intensity: 5.0 Vital Signs Past 12 Hours Date Time Temp Pulse Resp B/P (MAP) Pulse Ox O2 Delivery O2 Flow Rate FiO2 08/10/17 07:28 70 20 95 Nasal Cannula 2.0 08/10/17 07:05 36.5 71 18 126/77 (93) 97 Nasal Cannula 2.0 08/10/17 06:10 84 106/64 (78) 08/10/17 04:00 36.7 91 20 110/66 (81) 96 Nasal Cannula 2.0 08/10/17 04:00 96 Nasal Cannula 2.0 08/10/17 03:05 74 22 94 Nasal Cannula 2.5 08/10/17 00:05 78 22 96 Nasal Cannula 2.5 08/10/17 00:00 Nasal Cannula 2.0 08/10/17 00:00 36.6 78 20 120/70 (87) 94 Nasal Cannula 2.0 Notes Mental Status: alert / awake / arousable, participated in evaluation Pt Amnestic to Procedure: Yes Nausea / Vomiting: adequately controlled Pain: adequately controlled Airway Patency, RR, SpO2: stable & adequate BP & HR: stable & adequate Hydration State: stable & adequate Anesthetic Complications: no major complications apparent
[2017-08-10] MEDS: KETOROLAC TROMETHAMINE 15 MG/ML VIAL IV PRN (12:20)
--- NOTE | 2017-08-10 13:34 | Progress Note ---
Subjective Date of Service: Aug 10, 2017. Subjective Pt evaluation today including: conversation w/ patient, conversation w/ family , physical exam, chart review, lab review pt seen in followup. S/p biopsy yesterday, tolerated well. having pain at chest tube site, asking for increased pain meds. remains on Imipenem, tolerating well. afebrile. all cultures negative. no abd pain, no n/v/d. still with min bloody fluid from chest, multiple cultures obtained, negative so far. afb and fungal smear negative. No cp. no sob, no cough. All remaining ros reviewed and are negative. Objective Vital Signs Date Time Temp Pulse Resp B/P (MAP) Pulse Ox O2 Delivery O2 Flow Rate FiO2 08/10/17 11:43 36.7 79 18 128/69 (88) 95 Nasal Cannula 2.0 08/10/17 11:10 86 18 92 Nasal Cannula 2.0 08/10/17 07:28 70 20 95 Nasal Cannula 2.0 08/10/17 07:05 36.5 71 18 126/77 (93) 97 Nasal Cannula 2.0 08/10/17 06:10 84 106/64 (78) 08/10/17 04:00 36.7 91 20 110/66 (81) 96 Nasal Cannula 2.0 08/10/17 04:00 96 Nasal Cannula 2.0 08/10/17 03:05 74 22 94 Nasal Cannula 2.5 08/10/17 00:05 78 22 96 Nasal Cannula 2.5 08/10/17 00:00 Nasal Cannula 2.0 08/10/17 00:00 36.6 78 20 120/70 (87) 94 Nasal Cannula 2.0 08/09/17 20:00 94 Nasal Cannula 2.0 08/09/17 19:46 36.9 77 18 118/74 (89) 95 Nasal Cannula 2.0 08/09/17 19:28 36.9 81 20 115/68 (84) 96 Nasal Cannula 2.0 08/09/17 19:00 71 22 95 Nasal Cannula 2.5 08/09/17 17:13 75 17 137/81 (99) 94 Nasal Cannula 4.0 08/09/17 16:20 74 16 96 Nasal Cannula 3.0 08/09/17 16:15 94 Nasal Cannula 4.0 08/09/17 16:12 36.6 75 18 138/82 (100) 94 Nasal Cannula 4.0 08/09/17 15:40 36.8 74 16 130/64 97 Oxymask 10 08/09/17 15:30 69 16 130/63 97 Oxymask 10 08/09/17 15:20 36.0 75 16 126/70 100 Oxymask 10 08/09/17 15:10 76 16 102/64 100 Oxymask 10 08/09/17 15:01 35.5 94 16 107/72 100 Oxymask 10 Physical Exam General Appearance: WD/WN, no apparent distress Eyes: normal inspection, EOMI Neck: supple Respiratory/Chest: lungs clear, normal breath sounds, no respiratory distress, + decreased breath sounds Cardiovascular: regular rate, rhythm, no edema Abdomen: non tender, soft Extremities: non-tender, normal inspection, no pedal edema Neurologic/Psychiatric: alert, oriented x 3 Skin: normal color, warm/dry, no rash Laboratory Results Item Value Date Time Blood Culture - Preliminary Resulted 08/06/171930 Blood NO GROWTH TO DATE. Blood Culture - Preliminary Resulted 08/06/171936 Blood NO GROWTH TO DATE. Gram Stain - Final Complete 08/06/17 2300 Sputum Expectorated Sputum Last 24 Hours Test 08/10/17 06:35 White Blood Count 18.25 K/uL Red Blood Count 3.30 M/uL Hemoglobin 10.2 g/dL Hematocrit 30.3 % Mean Corpuscular Volume 91.8 fL Mean Corpuscular Hemoglobin 30.9 pg Mean Corpuscular Hemoglobin Concent 33.7 g/dl RDW Standard Deviation 45.9 fL RDW Coefficient of Variation 13.6 % Platelet Count 323 K/uL Mean Platelet Volume 9.3 fL Sodium Level 133 mmol/L Potassium Level 4.0 mmol/L Chloride Level 100 mmol/L Carbon Dioxide Level 25 mmol/L Anion Gap 8.0 mmol/L Blood Urea Nitrogen 8 mg/dl Creatinine 0.78 mg/dl Est Creatinine Clear Calc Drug Dose 70.8 ml/min Estimated GFR () 89.3 Estimated GFR (Non- 77.0 BUN/Creatinine Ratio 10.4 Random Glucose 214 mg/dl Calcium Level 8.8 mg/dl Magnesium Level 2.1 mg/dl Assessment and Plan (1) Pleural effusion Assessment & Plan: ? infectious vs malignant. cultures negative so far, will continue abx pending biopsy findings. will follow (2) Pneumothorax
[2017-08-10] MEDS ORDERED: ALBUTEROL 0.083% NEBU SOLN 3 ML VIAL INH PRN (14:00)
[2017-08-10] MEDS ORDERED: HYDROmorphone INJ 2 MG/ML SYR/VIAL IV PRN (14:00)
[2017-08-10] MEDS ORDERED: ATROPINE SULFATE 0.1 MG/ML 5ML SYR IV PRN (14:00)
[2017-08-10] MEDS ORDERED: ONDANSETRON INJ 2 MG/ML 2 ML VIAL IV PRN (14:00)
[2017-08-10] MEDS ORDERED: KETOROLAC TROMETHAMINE 30 MG/ML VIAL IV. PRN (14:00)
[2017-08-10] MEDS ORDERED: LABETALOL HCL IV 5 MG/ML 20ML IV PRN (14:00)
--- NOTE | 2017-08-10 16:24 | Pulmonology Progress Note ---
Pulmonary Progress Note Date of Service Aug 10, 2017. Attending Dr. English Subjective Patient seen and examined. She is complaining of pain at chest tube insertion site. She is Day #1 post op robotic thoracoscopy. She is feeling better today. She denies any fever, chills, cough, hemoptysis. Objective VS reviewed, Tmx 36.8, BP 110/63-147/84, P 59-94, RR 15-18, SaO2 91-98% on 2- 3L. She is currently on RA Gen: AAOx3, NAD, speaking in full sentences, no respiratory distress Lungs: good air entry bilaterally, left chest tube in place + air leak present Abd: soft/NT/ND BS+ Ext:no edema b/l, no cyanosis, no clubbing. Labs reviewed. WBC 14-->16--. today. Na 126-->134-->133 Blood culture 08/06/2017--No growth to date Sputum 08/06--no growth Left upper lobe AFB stain--no growth, AFB culture--pending Fungal smear--no yeast or hyphae seen, fungal culture-pending Bacterial culture--no growth to date Bronchial wash MARLENE--bacterial culture--no growth; fungal smear--no hyphae, culture pending; AFB stain and culture--pending Pathology Pleura, NOS--pending Lobe of lung, NOS--pending Bronchial wash--pending Medications reviewed. Imaging viewed by me. CXR 08/10/2017 Decrease in size in the small left pneumothorax. Left-sided chest tube is unchanged in position. CXR 08/07/2017 12 pm IMPRESSION: 1. No change in position of the left-sided chest tube. No significant pneumothorax. Left-sided subcutaneous emphysema 2. Slight improvement in the left basilar airspace opacities CXR 08/07/2017 8 am IMPRESSION: 1. No significant change in the position of the left-sided pleural drain, the tip of which projects over the aortic arch 2. No pneumothorax identified 3. Persistent left-sided subcutaneous emphysema 4. Persistent left basilar airspace opacities CXR 08/07/2017 IMPRESSION: 1. Interval replacement or repositioning of the large bore left pleural drain, which now terminates appropriately near the left apex. Trace left pneumothorax persists. 2. Stable to slightly increased left basilar opacity concerning for pneumonia. CT chest 08/07/2017 IMPRESSION: 1. Left-sided chest tube is located entirely within the subcutaneous fat and soft tissues of the chest wall itself.. 2. There is no evidence for extension of any component of tube to the chest cavity itself. 3. 30% left-sided pneumothorax. 4. Extensive subcutaneous emphysema over the left hemithorax. 5. The chest tube within the soft tissues contains at least 2 kinks 6. This tube should be removed 7. Small left effusion with partial left lower lobe atelectatic change. Assessment & Plan Left upper lobe cavitary mass Left secondary spontaneous pneumothorax COPD Tobacco use disorder Hyponatremia--improved She is s/p robotic thoroscopy and bronchoscopy with Dr. Rojas on 08/09/2017. I discussed case Dr. Harper who states that lesion was in the upper lobe and left lower lobe was atelectatic. Lesion did not appear to be an abbess but was more hemorrhagic and necrotic in nature. Chest tube is in place on the left with minimal serosanguinous drainage with still small air leak. Culture and cytology were sent. BAL done and results are pending for cytology. Continue with broad spectrum antibiotics. ID has been consulted and is following. Blood cultures show no growth to date Continue with Advair, Singulair and Spiriva for COPD maintenance therapy. She is not in acute exacerbation. Continue with supplemental oxygenation and adequate pain control. Continue with incentive spirometry. Continue with Nicotine patch. Data Medications: Current Inpatient Medications Medications (Trade) Dose Ordered Sig/Kaylee Route Start Time Stop Time Status Last Admin Dose Admin Al Hydrox/Mg Hydrox/Simethicone (Maalox Max Susp) 15 ml Q4H PRN PO 08/06/17 19:15 09/05/17 19:14 Magnesium Hydroxide (Milk Of Magnesia Susp) 30 ml Q12H PRN PO 08/06/17 19:15 09/05/17 19:14 Zolpidem Tartrate (Ambien Tab) 5 mg HSZ PRN PO 08/06/17 19:15 09/05/17 19:14 Ondansetron HCl (Zofran Inj) 4 mg Q6H PRN IV 08/06/17 19:15 09/05/17 19:14 Nitroglycerin (Nitrostat Tab) 0.4 mg UD PRN SL 08/06/17 19:15 09/05/17 19:14 Polyethylene (Miralax Powder Packet) 17 gm DAILY PRN PO 08/06/17 19:15 09/05/17 19:14 Albuterol (Ventolin Hfa Inhaler) 2 puffs Q4 PRN INH 08/06/17 19:15 09/05/17 19:14 Alprazolam (Xanax Tab) 0.5 mg HS PRN PO 08/06/17 19:15 09/05/17 19:14 08/08/17 22:19 0.5 MG Atorvastatin Calcium (Lipitor Tab) 10 mg HS PO 08/06/17 21:00 09/05/17 20:59 08/09/17 20:32 10 MG Carisoprodol (Soma Tab) 350 mg TID PRN PO 08/06/17 19:15 09/05/17 19:14 Docusate Sodium (coLACE CAP) 200 mg DAILY PO 08/07/17 09:00 09/06/17 08:59 08/10/17 07:53 200 MG Salmeterol Xinafoate/ Fluticasone (Advair Diskus 250/50 Inh) 1 puff BID INH 08/06/17 21:00 09/05/17 20:59 08/06/17 22:18 1 PUFF Gabapentin (Neurontin Cap) 300 mg TID PO 08/06/17 21:00 09/05/17 20:59 08/10/17 14:05 300 MG Acetaminophen/ Hydrocodone Bitart ([place] 7.5/325 Tab) 1 tab Q6 PRN PO 08/06/17 19:15 08/20/17 19:14 Lorazepam (Ativan Tab) 1 mg Q8H PRN PO 08/06/17 19:15 09/05/17 19:14 08/07/17 21:40 1 MG Losartan Potassium (coZAAR TAB) 100 mg QAM PO 08/07/17 09:00 09/06/17 08:59 08/10/17 07:54 100 MG Magnesium Oxide (Mag-Ox Tab) 400 mg BID PO 08/06/17 21:00 09/05/17 20:59 08/10/17 07:53 400 MG Montelukast Sodium (Singulair Tab) 10 mg HS PO 08/06/17 21:00 09/05/17 20:59 08/09/17 20:33 10 MG Multivitamins (Multivitamin Tab) 1 tab QAM PO 08/07/17 09:00 09/06/17 08:59 08/10/17 07:53 1 TAB Oxycodone HCl (Roxicodone Immediate Rel Tab) 5 mg Q4H PRN PO 08/06/17 19:15 08/20/17 19:14 08/10/17 10:11 5 MG Ranitidine HCl (zANTac TAB) 150 mg HS PO 08/06/17 21:00 09/05/17 20:59 08/09/17 20:33 150 MG Tramadol HCl (Ultram Tab) 50 mg TID PRN PO 08/06/17 19:15 09/05/17 19:14 Calcium/Vitamin D (Caltrate Plus Tab) 1 tab QAM PO 08/07/17 09:00 09/06/17 08:59 08/10/17 07:53 1 TAB Pantoprazole Sodium (Protonix Tab) 40 mg DAILY PO 08/07/17 09:00 09/06/17 08:59 08/10/17 07:54 40 MG Morphine Sulfate (MoRPHine SULFATE INJ) 4 mg Q4H PRN IV 08/07/17 00:00 08/20/17 19:59 08/09/17 18:02 4 MG Hydromorphone HCl (Dilaudid Inj) 0.5 mg Q4H PRN IV 08/06/17 21:00 08/20/17 20:59 08/09/17 16:21 0.5 MG Nicotine (Nicoderm Cq 14MG Patch) 1 patch QAM TD 08/07/17 09:00 09/06/17 08:59 08/10/17 07:54 1 PATCH Miscellaneous (Remove Nicoderm Patch) 1 ea HS N/A 08/07/17 21:00 09/06/17 20:59 08/09/17 20:31 1 EA Ipratropium [place] (Atrovent 0.02% 0.5MG/2.5ML Neb) 0.5 mg Q4R INH 08/07/17 00:00 09/06/17 00:00 08/10/17 15:48 0.5 MG Levalbuterol (Xopenex 1.25MG/ 0.5ML Neb) 1.25 mg Q4R INH 08/07/17 00:00 09/06/17 00:00 08/10/17 15:48 1.25 MG Imipenem/ Cilastatin Sodium (Consult) 1 ea DAILY PRN N/A 08/07/17 06:24 09/06/17 06:23 Metoprolol Tartrate (Lopressor Tab) 50 mg BID@0630,1600 PO 08/07/17 16:00 09/06/17 15:59 08/10/17 06:10 50 MG Imipenem/ Cilastatin Sodium 500 mg/Dextrose 110 ml @ 110 mls/hr Q6@0400,1000,1600,2200 IV 08/07/17 16:00 08/14/17 15:59 08/10/17 10:11 110 MLS/HR Budesonide/ Formoterol Fumarate (Symbicort 160/ 4.5 Inh) 2 puffs BID INH 08/08/17 21:00 09/07/17 20:59 08/10/17 07:53 2 PUFFS Tiotropium [place] (Spiriva Respimat) 2 puff DAILY INH 08/09/17 09:00 09/08/17 08:59 08/10/17 07:52 2 PUFF Ketorolac Tromethamine (Toradol Inj) 15 mg Q6H PRN IV 08/09/17 14:45 08/14/17 14:44 08/10/17 12:20 15 MG Enoxaparin Sodium (Lovenox Inj) 40 mg DAILY SQ 08/10/17 09:00 09/09/17 08:59 08/10/17 07:55 40 MG Metoclopramide HCl (Reglan Inj) 10 mg Q8 IV. 08/09/17 22:00 08/10/17 21:59 08/09/17 22:07 10 MG Morphine Sulfate (MoRPHine SULFATE INJ) Q1H PRN IV 08/09/17 14:45 08/23/17 14:44 08/10/17 04:14 2 MG Menthol (Nice Erich) 1 erich PRN PRN PO 08/10/17 04:45 09/09/17 04:44 Acetaminophen (Tylenol Tab) 650 mg Q4H PRN PO 08/10/17 14:15 09/09/17 14:14 I & O: 24-Hour Column 08/11/17 08:00 Intake Total 875 ml Output Total 1065 ml Balance -190 ml Vital Signs: Date Time Temp Pulse Resp B/P (MAP) Pulse Ox O2 Delivery O2 Flow Rate FiO2 08/10/17 15:48 84 18 95 Nasal Cannula 2.0 08/10/17 15:15 36.4 64 18 160/80 (106) 94 Room Air 08/10/17 11:43 36.7 79 18 128/69 (88) 95 Nasal Cannula 2.0 08/10/17 11:10 86 18 92 Nasal Cannula 2.0 08/10/17 07:28 70 20 95 Nasal Cannula 2.0 08/10/17 07:05 36.5 71 18 126/77 (93) 97 Nasal Cannula 2.0 08/10/17 06:10 84 106/64 (78) 08/10/17 04:00 36.7 91 20 110/66 (81) 96 Nasal Cannula 2.0 08/10/17 04:00 96 Nasal Cannula 2.0 08/10/17 03:05 74 22 94 Nasal Cannula 2.5 08/10/17 00:05 78 22 96 Nasal Cannula 2.5 08/10/17 00:00 Nasal Cannula 2.0 08/10/17 00:00 36.6 78 20 120/70 (87) 94 Nasal Cannula 2.0 08/09/17 20:00 94 Nasal Cannula 2.0 08/09/17 19:46 36.9 77 18 118/74 (89) 95 Nasal Cannula 2.0 08/09/17 19:28 36.9 81 20 115/68 (84) 96 Nasal Cannula 2.0 08/09/17 19:00 71 22 95 Nasal Cannula 2.5 08/09/17 17:13 75 17 137/81 (99) 94 Nasal Cannula 4.0 08/09/17 16:20 74 16 96 Nasal Cannula 3.0 08/09/17 16:15 94 Nasal Cannula 4.0 08/09/17 16:12 36.6 75 18 138/82 (100) 94 Nasal Cannula 4.0 Laboratory Results: Last 24 Hours Test 08/10/17 06:35 White Blood Count 18.25 K/uL Red Blood Count 3.30 M/uL Hemoglobin 10.2 g/dL Hematocrit 30.3 % Mean Corpuscular Volume 91.8 fL Mean Corpuscular Hemoglobin 30.9 pg Mean Corpuscular Hemoglobin Concent 33.7 g/dl RDW Standard Deviation 45.9 fL RDW Coefficient of Variation 13.6 % Platelet Count 323 K/uL Mean Platelet Volume 9.3 fL Sodium Level 133 mmol/L Potassium Level 4.0 mmol/L Chloride Level 100 mmol/L Carbon Dioxide Level 25 mmol/L Anion Gap 8.0 mmol/L Blood Urea Nitrogen 8 mg/dl Creatinine 0.78 mg/dl Est Creatinine Clear Calc Drug Dose 70.8 ml/min Estimated GFR () 89.3 Estimated GFR (Non- 77.0 BUN/Creatinine Ratio 10.4 Random Glucose 214 mg/dl Calcium Level 8.8 mg/dl Magnesium Level 2.1 mg/dl
[2017-08-10] MEDS: ATORVASTATIN 10 MG TAB PO SCH (21:19)
[2017-08-10] MEDS: RANITIDINE HCL 150 MG TAB PO SCH (21:19)
[2017-08-10] MEDS: MONTELUKAST SOD 10 MG TAB PO SCH (21:20)
[2017-08-10] MEDS: HYDROmorphone INJ 0.5 MG/0.5 ML SYR IV PRN (23:09)
[2017-08-10] MEDS: LORAZEPAM 1 MG TAB PO PRN (23:09)
[2017-08-11] VITALS (9 sets, daily range): BP systolic 125–147; BP diastolic 68–83; PULSE 80–103; TEMP 36.3–37.4; O2SAT 87–94
[2017-08-11] MEDS: IMIPENEM/CILASTATIN IV 500 MG in D5W 100ML IV SCH ×4 (04:03→21:22)
[2017-08-11] MEDS: METOPROLOL TARTRATE 50 MG TAB PO SCH ×2 (05:49→15:51)
[2017-08-11] MEDS: OXYCODONE HCL IR 5 MG TAB (IMMEDIATE RELEASE) PO PRN ×4 (05:51→21:16)
[2017-08-11] MEDS: PANTOprazole SOD 40 MG TAB PO SCH (07:01)
[2017-08-11] MEDS: TIOTROPIUM BROMIDE 28 PUFF/4 GM INH INH SCH (07:01)
[2017-08-11] MEDS: BUDESONIDE/FORMOTEROL FUMARATE 160/4.5 60 PUFFS/INHALER INH SCH ×2 (07:01→18:27)
[2017-08-11] MEDS: DOCUSATE SODIUM 100 MG CAP PO SCH (07:02)
[2017-08-11] MEDS: GABAPENTIN 300 MG CAP PO SCH ×3 (07:02→21:18)
[2017-08-11] MEDS: LOSARTAN POTASSIUM 50 MG TAB PO SCH (07:02)
[2017-08-11] MEDS: MULTIVITAMIN TAB PO SCH (07:03)
[2017-08-11] MEDS: MAGNESIUM OXIDE 400 MG TAB PO SCH ×2 (07:03→21:17)
[2017-08-11] MEDS: CALCIUM 600MG + VIT D 400 IU TAB PO SCH (07:03)
[2017-08-11] MEDS: NICOTINE 14 MG/24 HR TDSY TD SCH (07:04)
[2017-08-11] MEDS: ENOXAPARIN 40 MG/0.4 ML SYR SQ SCH (07:04)
[2017-08-11] MEDS: FLUTICASONE/SALMETEROL 250/50 (ADVAIR) 14 PUFF/1 INHALER INH SCH ×2 (07:06→21:00)
[2017-08-11] MEDS: LEVALBUTEROL 1.25MG/0.5ML NEB INH SCH ×5 (07:19→23:45)
[2017-08-11] MEDS: IPRATROPIUM BROMIDE NEB SOLN 0.02% 2.5 ML VIAL INH SCH ×5 (07:19→23:45)
[2017-08-11 07:31] LABS: HEMATOCRIT 32.1 % (37-47); MEAN CELL VOLUME 91.5 fL (80-100); MEAN CORPUSCULAR HEMOGLOBIN 30.8 pg (25-34); MEAN CORPUSCULAR HGB CONC 33.6 g/dl (32-36); MEAN PLATELET VOLUME 9.1 fL (7.4-10.4); PLATELET COUNT 409 K/uL (130-400); RED BLOOD COUNT 3.51 M/uL (4.2-5.4); WHITE BLOOD COUNT 15.32 K/uL (4.8-10.8)
[2017-08-11 08:14] LABS: BUN/CREATININE RATIO 11.3 (10-20); CALCIUM 9.2 mg/dl (8.5-10.1); CREATININE 0.79 mg/dl (0.60-1.20); POTASSIUM 4.3 mmol/L (3.5-5.1)
--- NOTE | 2017-08-11 08:46 | Surgery Progress Note ---
Subjective Date of Service: Aug 11, 2017. Pt. notes pain from chest tube. No SOB Discussed with RN--pt. ambulating well and no issues noted. Objective Vitals Date Time Temp Pulse Resp B/P (MAP) Pulse Ox O2 Delivery O2 Flow Rate FiO2 08/11/17 07:22 36.3 80 19 126/77 (93) 88 Nebulizer 08/11/17 07:19 80 18 87 Room Air 08/11/17 05:47 103 125/68 (87) 08/11/17 00:00 Room Air 08/10/17 23:28 88 18 91 Room Air 08/10/17 23:00 36.7 88 19 115/69 (84) 93 Room Air 08/10/17 20:14 83 18 95 Room Air 90 08/10/17 16:09 93 96 Room Air 08/10/17 15:48 84 18 95 Nasal Cannula 2.0 08/10/17 15:45 94 Room Air 08/10/17 15:15 36.4 64 18 160/80 (106) 94 Room Air 08/10/17 11:43 36.7 79 18 128/69 (88) 95 Nasal Cannula 2.0 08/10/17 11:10 86 18 92 Nasal Cannula 2.0 Physical Exam General: + well developed, + well nourished, No distress Pulmonary: + lungs clear, No accessory muscle use, No respiratory distress Neurologic: + alert & oriented x 3 Drains / Tubes chest tube (air leak noted; 190 cc last shift) Assessment & Plan 71 year old female s/p LVATS with excision of mass -path thus far shows concern for infection process and was (-) for CA -maintain on abx. -keep CT in place until air leak stops -encourage use of IS and ambulation OTHER lovenox for DVT prevention
--- NOTE | 2017-08-11 10:19 | Progress Note ---
Subjective Date of Service: Aug 11, 2017. Subjective pt sitting in bed, no distress, s/p biospy, all cultures pending but negative to date. blood cultures also negative. no f/c tolerating imipenem. afb smears fungal smear negative. still with leukocytosis, but improving, suspect increased reactive due to surgery. No overnight events. Objective Vital Signs Date Time Temp Pulse Resp B/P (MAP) Pulse Ox O2 Delivery O2 Flow Rate FiO2 08/11/17 07:22 36.3 80 19 126/77 (93) 88 Nebulizer 08/11/17 07:19 80 18 87 Room Air 08/11/17 05:47 103 125/68 (87) 08/11/17 00:00 Room Air 08/10/17 23:28 88 18 91 Room Air 08/10/17 23:00 36.7 88 19 115/69 (84) 93 Room Air 08/10/17 20:14 83 18 95 Room Air 90 08/10/17 16:09 93 96 Room Air 08/10/17 15:48 84 18 95 Nasal Cannula 2.0 08/10/17 15:45 94 Room Air 08/10/17 15:15 36.4 64 18 160/80 (106) 94 Room Air 08/10/17 11:43 36.7 79 18 128/69 (88) 95 Nasal Cannula 2.0 08/10/17 11:10 86 18 92 Nasal Cannula 2.0 Physical Exam General Appearance: WD/WN, no apparent distress Eyes: normal inspection Respiratory/Chest: normal breath sounds, no respiratory distress Cardiovascular: no edema Extremities: no pedal edema Neurologic/Psychiatric: alert, oriented x 3 Skin: normal color Comments: chest tube in place Laboratory Results Item Value Date Time Blood Culture - Preliminary Resulted 08/06/17 193 Blood NO GROWTH TO DATE. Blood Culture - Preliminary Resulted 08/06/17 193 Blood NO GROWTH TO DATE. Gram Stain - Final Complete 08/06/17 2300 Sputum Expectorated Sputum Gram Stain - Final Resulted 08/09/17 0000 Bronchial Washings Left Upper Lobe Gram Stain - Final Resulted 08/09/17 1245 Abscess Lung, Left Acid Fast Stain - Final Resulted 08/09/17 1323 Tissue Left Upper Lobe Gram Stain - Final Resulted 08/09/17 1323 Tissue Left Upper Lobe Gram Stain - Final Resulted 08/09/17 1323 Tissue Left Upper Lobe Gram Stain - Final Resulted 08/09/17 1245 Abscess Lung, Left Gram Stain - Final Complete 08/09/17 0000 Bronchial Washings Left Upper Lobe Acid Fast Stain - Final Resulted 08/09/17 0000 Bronchial Washings Left Upper Lobe Last 24 Hours Test 08/11/17 06:58 White Blood Count 15.32 K/uL Red Blood Count 3.51 M/uL Hemoglobin 10.8 g/dL Hematocrit 32.1 % Mean Corpuscular Volume 91.5 fL Mean Corpuscular Hemoglobin 30.8 pg Mean Corpuscular Hemoglobin Concent 33.6 g/dl RDW Standard Deviation 45.8 fL RDW Coefficient of Variation 13.7 % Platelet Count 409 K/uL Mean Platelet Volume 9.1 fL Sodium Level 133 mmol/L Potassium Level 4.3 mmol/L Chloride Level 100 mmol/L Carbon Dioxide Level 28 mmol/L Anion Gap 5.0 mmol/L Blood Urea Nitrogen 9 mg/dl Creatinine 0.79 mg/dl Est Creatinine Clear Calc Drug Dose 69.9 ml/min Estimated GFR () 87.9 Estimated GFR (Non- 75.8 BUN/Creatinine Ratio 11.3 Random Glucose 99 mg/dl Calcium Level 9.2 mg/dl Magnesium Level 2.0 mg/dl Chemistry Specimen Hemolysis Assessment and Plan (1) Pleural effusion Assessment & Plan: ? infectious vs malignant. cultures negative so far, will continue abx pending biopsy findings. will follow. If cultures remain negative ( was on abx at time of OR and also had azithro as outpt river [employer]) she could be transitioned to po augmentin x 21 days. (2) Pneumothorax
--- NOTE | 2017-08-11 11:09 | PULMONARY FUNCTION TEST ---
Readings of based off ATS criteria. SPIROMETRY: Severe obstructive ventilatory disease. BRONCHODILATOR: No significant response. INTERPRETATION: Severe obstructive ventilatory disease.
--- NOTE | 2017-08-11 12:04 | Pulmonology Progress Note ---
Pulmonary Progress Note Date of Service Aug 11, 2017. Attending Subjective Patient seen and examined. She states that she is feeling better. Her is visiting. She is in good spirits today. She is still having some intermittent chest pain with deep inspiration at chest tube insertion site. Pain is adequately controlled with pain meds. She denies any cough or further shortness of breath. Objective VS reviewed, Tmx 36.7, BP 125/68-147/78, P 87-93, RR 17-19, SaO2 87-93% She is currently on RA Gen: AAOx3, NAD, speaking in full sentences, no respiratory distress Lungs: good air entry bilaterally, left chest tube in place + air leak present, she does have sporadic wheezing a left lower base Abd: soft/NT/ND BS+ Ext:no edema b/l, no cyanosis, no clubbing. Labs reviewed. Na 133, Urine, Osm 90 spirometry 08/06/2017: sever obstructive ventilatory disease with no significant bronchodilator respsone Blood culture 08/06/2017--No growth to date Sputum 08/06--no growth Left upper lobe AFB stain--no growth, AFB culture--pending, bacterial culture-- no growth to date Fungal smear--no yeast or hyphae seen, fungal culture-pending Bacterial culture--no growth to date Bronchial wash MARLENE--bacterial culture--no growth; fungal smear--rare yeast seen , culture pending; AFB stain--no AFB seen and culture--pending Pathology Pleura, NOS--08/09/2017 1. SEVERE CHRONIC ACTIVE PLEURITIS TO INCLUDE MANY HISTIOCYTES IS SEEN. 2. NO TUMOR SEEN. 3. THE CLINICAL HISTORY OF A LEFT LUNG ABSCESS IS NOTED. Lobe of lung, NOS-- FINAL DIAGNOSIS A. LUNG, DISTAL LINGULA LEFT LOBE, WEDGE EXCISION: ACUTE PNEUMONITIS AND PLEURITIS. VASCULAR CONGESTION, ALVEOLAR HEMORRHAGE AND EDEMA. SEE COMMENT. B. LUNG, LEFT UPPER LOBE, MEDIAL SEGMENT, WEDGE EXCISION: DIFFUSE HEMORRHAGIC NECROSIS. ACUTE PNEUMONITIS AND PLEURITIS. SEE COMMENT. Bronchial wash--pending Medications reviewed. Imaging viewed by me. CXR 08/10/2017 Decrease in size in the small left pneumothorax. Left-sided chest tube is unchanged in position. CXR 08/07/2017 12 pm IMPRESSION: 1. No change in position of the left-sided chest tube. No significant pneumothorax. Left-sided subcutaneous emphysema 2. Slight improvement in the left basilar airspace opacities CXR 08/07/2017 8 am IMPRESSION: 1. No significant change in the position of the left-sided pleural drain, the tip of which projects over the aortic arch 2. No pneumothorax identified 3. Persistent left-sided subcutaneous emphysema 4. Persistent left basilar airspace opacities CXR 08/07/2017 IMPRESSION: 1. Interval replacement or repositioning of the large bore left pleural drain, which now terminates appropriately near the left apex. Trace left pneumothorax persists. 2. Stable to slightly increased left basilar opacity concerning for pneumonia. CT chest 08/07/2017 IMPRESSION: 1. Left-sided chest tube is located entirely within the subcutaneous fat and soft tissues of the chest wall itself.. 2. There is no evidence for extension of any component of tube to the chest cavity itself. 3. 30% left-sided pneumothorax. 4. Extensive subcutaneous emphysema over the left hemithorax. 5. The chest tube within the soft tissues contains at least 2 kinks 6. This tube should be removed 7. Small left effusion with partial left lower lobe atelectatic change. Assessment & Plan Left upper lobe cavitary mass Left secondary spontaneous pneumothorax COPD Tobacco use disorder Hyponatremia--improved She is s/p robotic thoroscopy and bronchoscopy with Dr. Rojas on 08/09/2017. I discussed case Dr. Harper who states that lesion was in the upper lobe and left lower lobe was atelectatic. Lesion did not appear to be an abbess but was more hemorrhagic and necrotic in nature. Chest tube is in place on the left with minimal serosanguinous drainage with still small air leak. Pathology is negative for malignancy. Bacterial cultures are negative and rare yeast growing in bronchial wash. BAL done and results are pending for cytology. Continue with broad spectrum antibiotics. ID has been consulted and is following. Blood cultures show no growth to date Continue with Advair, Singulair and Spiriva for COPD maintenance therapy. She is not in acute exacerbation. Continue with supplemental oxygenation and adequate pain control. Continue with incentive spirometry. Continue with chest tube per CT surgery. She still has a small air leak. Continue with Nicotine patch. Patient is doing much better from a respiratory standpoint and is clinically stable on room air. At this time I will sign off case. Please feel free to contact me if you have any further questions or concerns. She can follow with Dr. Duncan upon discharge. Data Medications: Current Inpatient Medications Medications (Trade) Dose Ordered Sig/Kaylee Route Start Time Stop Time Status Last Admin Dose Admin Al Hydrox/Mg Hydrox/Simethicone (Maalox Max Susp) 15 ml Q4H PRN PO 08/06/17 19:15 09/05/17 19:14 Magnesium Hydroxide (Milk Of Magnesia Susp) 30 ml Q12H PRN PO 08/06/17 19:15 09/05/17 19:14 Zolpidem Tartrate (Ambien Tab) 5 mg HSZ PRN PO 08/06/17 19:15 09/05/17 19:14 Ondansetron HCl (Zofran Inj) 4 mg Q6H PRN IV 08/06/17 19:15 09/05/17 19:14 Nitroglycerin (Nitrostat Tab) 0.4 mg UD PRN SL 08/06/17 19:15 09/05/17 19:14 Polyethylene (Miralax Powder Packet) 17 gm DAILY PRN PO 08/06/17 19:15 09/05/17 19:14 Albuterol (Ventolin Hfa Inhaler) 2 puffs Q4 PRN INH 08/06/17 19:15 09/05/17 19:14 Alprazolam (Xanax Tab) 0.5 mg HS PRN PO 08/06/17 19:15 09/05/17 19:14 08/08/17 22:19 0.5 MG Atorvastatin Calcium (Lipitor Tab) 10 mg HS PO 08/06/17 21:00 09/05/17 20:59 08/10/17 21:19 10 MG Carisoprodol (Soma Tab) 350 mg TID PRN PO 08/06/17 19:15 09/05/17 19:14 Docusate Sodium (coLACE CAP) 200 mg DAILY PO 08/07/17 09:00 09/06/17 08:59 08/11/17 07:02 200 MG Salmeterol Xinafoate/ Fluticasone (Advair Diskus 250/50 Inh) 1 puff BID INH 08/06/17 21:00 09/05/17 20:59 08/06/17 22:18 1 PUFF Gabapentin (Neurontin Cap) 300 mg TID PO 08/06/17 21:00 09/05/17 20:59 08/11/17 07:02 300 MG Acetaminophen/ Hydrocodone Bitart ([place] 7.5/325 Tab) 1 tab Q6 PRN PO 08/06/17 19:15 08/20/17 19:14 Lorazepam (Ativan Tab) 1 mg Q8H PRN PO 08/06/17 19:15 09/05/17 19:14 08/10/17 23:09 1 MG Losartan Potassium (coZAAR TAB) 100 mg QAM PO 08/07/17 09:00 09/06/17 08:59 08/11/17 07:02 100 MG Magnesium Oxide (Mag-Ox Tab) 400 mg BID PO 08/06/17 21:00 09/05/17 20:59 08/11/17 07:03 400 MG Montelukast Sodium (Singulair Tab) 10 mg HS PO 08/06/17 21:00 09/05/17 20:59 08/10/17 21:20 10 MG Multivitamins (Multivitamin Tab) 1 tab QAM PO 08/07/17 09:00 09/06/17 08:59 08/11/17 07:03 1 TAB Oxycodone HCl (Roxicodone Immediate Rel Tab) 5 mg Q4H PRN PO 08/06/17 19:15 08/20/17 19:14 08/11/17 09:45 5 MG Ranitidine HCl (zANTac TAB) 150 mg HS PO 08/06/17 21:00 09/05/17 20:59 08/10/17 21:19 150 MG Tramadol HCl (Ultram Tab) 50 mg TID PRN PO 08/06/17 19:15 09/05/17 19:14 Calcium/Vitamin D (Caltrate Plus Tab) 1 tab QAM PO 08/07/17 09:00 09/06/17 08:59 08/11/17 07:03 1 TAB Pantoprazole Sodium (Protonix Tab) 40 mg DAILY PO 08/07/17 09:00 09/06/17 08:59 08/11/17 07:01 40 MG Morphine Sulfate (MoRPHine SULFATE INJ) 4 mg Q4H PRN IV 08/07/17 00:00 08/20/17 19:59 08/09/17 18:02 4 MG Hydromorphone HCl (Dilaudid Inj) 0.5 mg Q4H PRN IV 08/06/17 21:00 08/20/17 20:59 08/10/17 23:09 0.5 MG Nicotine (Nicoderm Cq 14MG Patch) 1 patch QAM TD 08/07/17 09:00 09/06/17 08:59 08/11/17 07:04 1 PATCH Miscellaneous (Remove Nicoderm Patch) 1 ea HS N/A 08/07/17 21:00 09/06/17 20:59 08/10/17 21:18 1 EA Ipratropium [place] (Atrovent 0.02% 0.5MG/2.5ML Neb) 0.5 mg Q4R INH 08/07/17 00:00 09/06/17 00:00 08/11/17 07:19 0.5 MG Levalbuterol (Xopenex 1.25MG/ 0.5ML Neb) 1.25 mg Q4R INH 08/07/17 00:00 09/06/17 00:00 08/11/17 07:19 1.25 MG Imipenem/ Cilastatin Sodium (Consult) 1 ea DAILY PRN N/A 08/07/17 06:24 09/06/17 06:23 Metoprolol Tartrate (Lopressor Tab) 50 mg BID@0630,1600 PO 08/07/17 16:00 09/06/17 15:59 08/11/17 05:49 50 MG Imipenem/ Cilastatin Sodium 500 mg/Dextrose 110 ml @ 110 mls/hr Q6@0400,1000,1600,2200 IV 08/07/17 16:00 08/14/17 15:59 08/11/17 09:45 110 MLS/HR Budesonide/ Formoterol Fumarate (Symbicort 160/ 4.5 Inh) 2 puffs BID INH 08/08/17 21:00 09/07/17 20:59 08/11/17 07:01 2 PUFFS Tiotropium [place] (Spiriva Respimat) 2 puff DAILY INH 08/09/17 09:00 09/08/17 08:59 08/11/17 07:01 2 PUFF Ketorolac Tromethamine (Toradol Inj) 15 mg Q6H PRN IV 08/09/17 14:45 08/14/17 14:44 08/10/17 12:20 15 MG Enoxaparin Sodium (Lovenox Inj) 40 mg DAILY SQ 08/10/17 09:00 09/09/17 08:59 08/11/17 07:04 40 MG Morphine Sulfate (MoRPHine SULFATE INJ) Q1H PRN IV 08/09/17 14:45 08/23/17 14:44 08/10/17 04:14 2 MG Menthol (Nice Erich) 1 erich PRN PRN PO 08/10/17 04:45 09/09/17 04:44 Acetaminophen (Tylenol Tab) 650 mg Q4H PRN PO 08/10/17 14:15 09/09/17 14:14 Vital Signs: Date Time Temp Pulse Resp B/P (MAP) Pulse Ox O2 Delivery O2 Flow Rate FiO2 08/11/17 10:57 36.7 89 17 147/78 (101) 93 Room Air 08/11/17 07:22 36.3 80 19 126/77 (93) 88 Nebulizer 08/11/17 07:19 80 18 87 Room Air 08/11/17 05:47 103 125/68 (87) 08/11/17 00:00 Room Air 08/10/17 23:28 88 18 91 Room Air 08/10/17 23:00 36.7 88 19 115/69 (84) 93 Room Air 08/10/17 20:14 83 18 95 Room Air 90 08/10/17 16:09 93 96 Room Air 08/10/17 15:48 84 18 95 Nasal Cannula 2.0 08/10/17 15:45 94 Room Air 08/10/17 15:15 36.4 64 18 160/80 (106) 94 Room Air Laboratory Results: Last 24 Hours Test 08/11/17 06:58 White Blood Count 15.32 K/uL Red Blood Count 3.51 M/uL Hemoglobin 10.8 g/dL Hematocrit 32.1 % Mean Corpuscular Volume 91.5 fL Mean Corpuscular Hemoglobin 30.8 pg Mean Corpuscular Hemoglobin Concent 33.6 g/dl RDW Standard Deviation 45.8 fL RDW Coefficient of Variation 13.7 % Platelet Count 409 K/uL Mean Platelet Volume 9.1 fL Sodium Level 133 mmol/L Potassium Level 4.3 mmol/L Chloride Level 100 mmol/L Carbon Dioxide Level 28 mmol/L Anion Gap 5.0 mmol/L Blood Urea Nitrogen 9 mg/dl Creatinine 0.79 mg/dl Est Creatinine Clear Calc Drug Dose 69.9 ml/min Estimated GFR () 87.9 Estimated GFR (Non- 75.8 BUN/Creatinine Ratio 11.3 Random Glucose 99 mg/dl Calcium Level 9.2 mg/dl Magnesium Level 2.0 mg/dl Chemistry Specimen Hemolysis
--- NOTE | 2017-08-11 13:08 | Progress Note ---
Internal Med Progress Note Date of Service: Aug 11, 2017. Provider Documentation: SUBJECTIVE: Seen and examined at bedside States having soreness at site of chest tube Has intermittent dry cough Denies chest pain, SOB Offers no other complaints Feels tired OBJECTIVE: Vital Signs-as noted below Physical Exam: General Appearance:Moderately built and nourished, no apparent distress Head: normocephalic, Atraumatic Eyes: normal inspection, EOMI, PERRL Neck: supple, Trachea midline Respiratory/Chest: Decreased breath sounds, Mild scattered wheezes, + chest tube Cardiovascular: S1, S2, No murmur Abdomen/GI:Soft, Non tender, Bowel sounds present Extremities/Musculoskelatal:normal inspection, no edema Neurologic/Psych:grossly no focal neurological deficits Skin: normal color, warm Lab data as noted below. ASSESSMENT & PLAN: Patient is a 71 yr female with H/O CAD/CABG, HTN, COPD presenting with left sided chest pain. LEFT SIDED PNEUMOTHORAX Left lung mass S/P robot-assisted left thoracoscopy with excision of a mass POD # 2 Frozen section: Negative for malignant cells, shows infectious process Continue Chest tube per CT surgery CT chest showed 30% left-sided pneumothorax, extensive subcutaneous emphysema over the left hemithorax and small L effusion with partial LLL atelectasis Appreciate Pulmonology/CT surgery help Continue Primaxin for now. Plan to transition to Augmentin if cultures negative Leukocytosis trending down Appreciate ID Input Blood/Sputum culture negative Bronchial cultures: rare yeast COPD H/O chronic tobacco use Continue home inhalers pulmonology and CT surgery following counselled for smoking cessation Nicotine patch CAD/CABG Held ASA, Plavix for thoracoscopic eval continue Losartan, Metoprolol hold Lasix for now Plan to resume ASA/Plavix when appropriate Hyponatremia/Hypokalemia: Replace and monitor HTN continue Losartan, Metoprolol DVT PX Lovenox SQ Code Status FULL CODE DISPOSITION anticipate d/c home when medically stable will need PT/OT eval prior to discharge follows with Family practice at [place] area would like to follow up with Pulmonology Dr Duncan in [place] Vital Signs: Date Time Temp Pulse Resp B/P (MAP) Pulse Ox O2 Delivery O2 Flow Rate FiO2 08/11/17 11:49 82 18 94 Room Air 08/11/17 10:57 36.7 89 17 147/78 (101) 93 Room Air 08/11/17 07:22 36.3 80 19 126/77 (93) 88 Nebulizer 08/11/17 07:19 80 18 87 Room Air 08/11/17 05:47 103 125/68 (87) 08/11/17 00:00 Room Air 08/10/17 23:28 88 18 91 Room Air 08/10/17 23:00 36.7 88 19 115/69 (84) 93 Room Air 08/10/17 20:14 83 18 95 Room Air 90 08/10/17 16:09 93 96 Room Air 08/10/17 15:48 84 18 95 Nasal Cannula 2.0 08/10/17 15:45 94 Room Air 08/10/17 15:15 36.4 64 18 160/80 (106) 94 Room Air Lab Results: Results Past 24 Hours Test 08/11/17 06:58 Range/Units White Blood Count 15.32 4.8-10.8 K/uL Red Blood Count 3.51 4.2-5.4 M/uL Hemoglobin 10.8 12.0-16.0 g/dL Hematocrit 32.1 37-47 % Mean Corpuscular Volume 91.5 80-100 fL Mean Corpuscular Hemoglobin 30.8 25-34 pg Mean Corpuscular Hemoglobin Concent 33.6 32-36 g/dl RDW Standard Deviation 45.8 36.4-46.3 fL RDW Coefficient of Variation 13.7 11.5-14.5 % Platelet Count 409 130-400 K/uL Mean Platelet Volume 9.1 7.4-10.4 fL Sodium Level 133 136-145 mmol/L Potassium Level 4.3 3.5-5.1 mmol/L Chloride Level 100 98-107 mmol/L Carbon Dioxide Level 28 21-32 mmol/L Anion Gap 5.0 3-11 mmol/L Blood Urea Nitrogen 9 7-18 mg/dl Creatinine 0.79 0.60-1.20 mg/dl Est Creatinine Clear Calc Drug Dose 69.9 ml/min Estimated GFR () 87.9 Estimated GFR (Non- 75.8 BUN/Creatinine Ratio 11.3 10-20 Random Glucose 99 70-99 mg/dl Calcium Level 9.2 8.5-10.1 mg/dl Magnesium Level 2.0 1.8-2.4 mg/dl Chemistry Specimen Hemolysis
[2017-08-11] MEDS: ATORVASTATIN 10 MG TAB PO SCH (21:17)
[2017-08-11] MEDS: MONTELUKAST SOD 10 MG TAB PO SCH (21:18)
[2017-08-11] MEDS: RANITIDINE HCL 150 MG TAB PO SCH (21:18)
[2017-08-11] MEDS: HYDROmorphone INJ 0.5 MG/0.5 ML SYR IV PRN (21:54)
[2017-08-11] MEDS: KETOROLAC TROMETHAMINE 15 MG/ML VIAL IV PRN (23:36)
[2017-08-12] VITALS (12 sets, daily range): BP systolic 116–142; BP diastolic 68–84; PULSE 79–110; TEMP 36.6–36.7; O2SAT 90–93
[2017-08-12] MEDS: HYDROmorphone INJ 0.5 MG/0.5 ML SYR IV PRN ×2 (02:43→20:35)
[2017-08-12] MEDS: IMIPENEM/CILASTATIN IV 500 MG in D5W 100ML IV SCH ×4 (03:57→22:50)
[2017-08-12] MEDS: IPRATROPIUM BROMIDE NEB SOLN 0.02% 2.5 ML VIAL INH SCH ×6 (04:01→23:16)
[2017-08-12] MEDS: LEVALBUTEROL 1.25MG/0.5ML NEB INH SCH ×6 (04:01→23:16)
[2017-08-12] MEDS: HYDROCODONE/ACETAMINOPHEN 7.5/325MG TAB PO PRN ×3 (05:32→17:44)
[2017-08-12] MEDS: METOPROLOL TARTRATE 50 MG TAB PO SCH ×2 (06:09→16:30)
[2017-08-12 07:30] LABS: HEMATOCRIT 31.6 % (37-47); MEAN CELL VOLUME 92.4 fL (80-100); MEAN CORPUSCULAR HEMOGLOBIN 30.7 pg (25-34); MEAN CORPUSCULAR HGB CONC 33.2 g/dl (32-36); PLATELET COUNT 406 K/uL (130-400); RED BLOOD COUNT 3.42 M/uL (4.2-5.4); WHITE BLOOD COUNT 12.05 K/uL (4.8-10.8)
--- NOTE | 2017-08-12 08:06 | DIAGNOSTIC IMAGING REPORT ---
CHEST ONE VIEW PORTABLE CLINICAL HISTORY: Pneumothorax COMPARISON STUDY: 08/10/2017 FINDINGS: There are postsurgical changes of a midline sternotomy. The heart is at the upper limits of normal in size. The left-sided chest tube remains unchanged in position. There is increasing extensive subcutaneous emphysema. A trace left apical pneumothorax is visualized. The subcutaneous emphysema limits evaluation the lung parenchyma.[ IMPRESSION: Increasing extensive subcutaneous emphysema. No change in the position of the left-sided chest tube. Trace left apical pneumothorax. Electronically signed by: Aiden Roe M.D. 08/12/2017 8:05 AM Dictated Date/Time: 08/12/2017 8:03 AM
--- NOTE | 2017-08-12 08:55 | SURGERY PROGRESS NOTE ---
DATE: 08/12/2017 DATE: 08/12/2017 Ms. Guardado was seen today on 08/12/2017. She is now postoperative day #3 status post robotic assisted left thoracoscopy with a wedge resection of what appeared to be necrotic lung. Her pathology is back. It appears this was an infectious process with bleeding. We checked an x-ray today. I think it looks very good. I see no evidence for pneumothorax; however, she does have increasing subcutaneous emphysema and she does have a small air leak, although it has improved considerably. She is draining very little from her chest tube. She does have some mild wheezing today. Her weight is up 4 kilograms. I am going to give her some Lasix as she does have trace edema of the lower extremities. Her sodium is down to 133, potassium is 4.3. Her white count is down to 12,050 and hemoglobin is stable at 10.5. She is on room air, ambulating in the hallway independently. We will have to continue her chest tube until her leak resolves but she does look improved.
[2017-08-12] MEDS: FLUTICASONE/SALMETEROL 250/50 (ADVAIR) 14 PUFF/1 INHALER INH SCH ×2 (09:00→20:37)
[2017-08-12] MEDS: BUDESONIDE/FORMOTEROL FUMARATE 160/4.5 60 PUFFS/INHALER INH SCH ×2 (09:01→20:37)
[2017-08-12] MEDS: TIOTROPIUM BROMIDE 28 PUFF/4 GM INH INH SCH (09:02)
[2017-08-12] MEDS: DOCUSATE SODIUM 100 MG CAP PO SCH (09:03)
[2017-08-12] MEDS: CALCIUM 600MG + VIT D 400 IU TAB PO SCH (09:03)
[2017-08-12] MEDS: NICOTINE 14 MG/24 HR TDSY TD SCH (09:05)
[2017-08-12] MEDS: LOSARTAN POTASSIUM 50 MG TAB PO SCH (09:05)
[2017-08-12] MEDS: GABAPENTIN 300 MG CAP PO SCH ×3 (09:05→20:43)
[2017-08-12] MEDS: PANTOprazole SOD 40 MG TAB PO SCH (09:06)
[2017-08-12] MEDS: ENOXAPARIN 40 MG/0.4 ML SYR SQ SCH (09:06)
[2017-08-12] MEDS: MAGNESIUM OXIDE 400 MG TAB PO SCH ×2 (09:06→20:43)
[2017-08-12] MEDS: MULTIVITAMIN TAB PO SCH (09:07)
[2017-08-12] MEDS: KETOROLAC TROMETHAMINE 15 MG/ML VIAL IV PRN (09:15)
[2017-08-12] MEDS ORDERED: FUROSEMIDE INJ 20 MG in SYRINGE 0 ML IV ONE (10:15)
--- NOTE | 2017-08-12 15:43 | Progress Note ---
Internal Med Progress Note Date of Service: Aug 12, 2017. Provider Documentation: SUBJECTIVE: Seen and examined at bedside States having leg swelling Denies CP, SOB Has some chest tube air leak Received lasix today Offers no other complaints appetite improving OBJECTIVE: Vital Signs-as noted below Physical Exam: General Appearance:Moderately built and nourished, no apparent distress Head: normocephalic, Atraumatic Eyes: normal inspection, EOMI, PERRL Neck: supple, Trachea midline Respiratory/Chest: Decreased breath sounds, Mild scattered wheezes, + chest tube Cardiovascular: S1, S2, No murmur Abdomen/GI:Soft, Non tender, Bowel sounds present Extremities/Musculoskelatal:normal inspection, no edema Neurologic/Psych:grossly no focal neurological deficits Skin: normal color, warm Lab data as noted below. ASSESSMENT & PLAN: Patient is a 71 yr female with H/O CAD/CABG, HTN, COPD presenting with left sided chest pain. LEFT SIDED PNEUMOTHORAX Left lung mass S/P robot-assisted left thoracoscopy with excision of a mass POD # 3 Frozen section: Negative for malignant cells, shows infectious process Continue Chest tube per CT surgery CT chest showed 30% left-sided pneumothorax, extensive subcutaneous emphysema over the left hemithorax and small L effusion with partial LLL atelectasis Appreciate Pulmonology/CT surgery help Continue Primaxin. Plan to transition to Augmentin Leukocytosis trending down Appreciate ID Input Blood/Sputum culture negative Bronchial cultures: rare yeast COPD H/O chronic tobacco use Continue home inhalers pulmonology and CT surgery following counselled for smoking cessation Nicotine patch CAD/CABG Held ASA, Plavix for thoracoscopic eval continue Losartan, Metoprolol hold Lasix for now Plan to resume ASA/Plavix when appropriate Hyponatremia/Hypokalemia: Replace and monitor Chronic Leg swelling: Was on Lasix 40mg PRN per EPIC Check venous Doppler Resume lasix monitor electrolytes HTN continue Losartan, Metoprolol DVT PX Lovenox SQ Code Status FULL CODE DISPOSITION anticipate d/c home when medically stable follows with Family practice at [place] area would like to follow up with Pulmonology Dr Duncan in [place] Vital Signs: Date Time Temp Pulse Resp B/P (MAP) Pulse Ox O2 Delivery O2 Flow Rate FiO2 08/12/17 15:26 99 18 91 Room Air 08/12/17 15:03 36.6 96 18 142/84 (103) 92 Room Air 08/12/17 11:19 94 18 93 Room Air 08/12/17 08:10 91 Room Air 08/12/17 07:30 36.7 79 16 116/68 (84) 91 Room Air 08/12/17 07:19 82 18 90 Room Air 08/12/17 06:07 94 124/78 (93) 91 Room Air 08/12/17 04:02 95 18 90 Room Air 08/11/17 23:46 100 18 92 Room Air 08/11/17 23:35 Room Air 08/11/17 23:06 37.4 96 16 128/73 (91) 92 Room Air 08/11/17 19:33 98 18 92 Room Air Lab Results: Results Past 24 Hours Test 08/12/17 07:00 Range/Units White Blood Count 12.05 4.8-10.8 K/uL Red Blood Count 3.42 4.2-5.4 M/uL Hemoglobin 10.5 12.0-16.0 g/dL Hematocrit 31.6 37-47 % Mean Corpuscular Volume 92.4 80-100 fL Mean Corpuscular Hemoglobin 30.7 25-34 pg Mean Corpuscular Hemoglobin Concent 33.2 32-36 g/dl RDW Standard Deviation 46.8 36.4-46.3 fL RDW Coefficient of Variation 13.8 11.5-14.5 % Platelet Count 406 130-400 K/uL Mean Platelet Volume 9.0 7.4-10.4 fL
[2017-08-12] MEDS: OXYCODONE HCL IR 5 MG TAB (IMMEDIATE RELEASE) PO PRN ×2 (16:25→21:46)
--- NOTE | 2017-08-12 17:32 | DIAGNOSTIC IMAGING REPORT ---
ULTRASOUND VENOUS DOPPLER LWR EXT BILA CLINICAL HISTORY: Lower extremity swelling COMPARISON STUDY: No previous studies for comparison. FINDINGS: Real-time and color flow Doppler imaging were performed. Flow was seen within the femoral, popliteal and calf veins with no intraluminal thrombus demonstrated. The saphenous vein is patent. There is lower extremity edema IMPRESSION: No evidence of lower extremity DVT. Electronically signed by: Aiden Roe M.D. 08/12/2017 5:30 PM Dictated Date/Time: 08/12/2017 5:30 PM
[2017-08-12] MEDS: RANITIDINE HCL 150 MG TAB PO SCH (19:08)
[2017-08-12] MEDS: MONTELUKAST SOD 10 MG TAB PO SCH (20:43)
[2017-08-12] MEDS: ATORVASTATIN 10 MG TAB PO SCH (20:43)
[2017-08-13] VITALS (9 sets, daily range): BP systolic 118–139; BP diastolic 73–78; PULSE 89–107; TEMP 36.5–37; O2SAT 92–96
[2017-08-13] MEDS: KETOROLAC TROMETHAMINE 15 MG/ML VIAL IV PRN ×2 (00:16→07:12)
[2017-08-13] MEDS: IPRATROPIUM BROMIDE NEB SOLN 0.02% 2.5 ML VIAL INH SCH ×5 (03:16→19:21)
[2017-08-13] MEDS: LEVALBUTEROL 1.25MG/0.5ML NEB INH SCH ×5 (03:16→19:20)
[2017-08-13] MEDS: IMIPENEM/CILASTATIN IV 500 MG in D5W 100ML IV SCH ×4 (03:41→21:56)
[2017-08-13] MEDS: OXYCODONE HCL IR 5 MG TAB (IMMEDIATE RELEASE) PO PRN ×3 (04:16→20:35)
[2017-08-13] MEDS: METOPROLOL TARTRATE 50 MG TAB PO SCH ×2 (06:19→16:01)
[2017-08-13 07:01] LABS: MEAN CELL VOLUME 90.9 fL (80-100); MEAN CORPUSCULAR HEMOGLOBIN 30.9 pg (25-34); MEAN CORPUSCULAR HGB CONC 33.9 g/dl (32-36); MEAN PLATELET VOLUME 8.9 fL (7.4-10.4); PLATELET COUNT 438 K/uL (130-400); RED BLOOD COUNT 3.63 M/uL (4.2-5.4); WHITE BLOOD COUNT 16.26 K/uL (4.8-10.8)
[2017-08-13 07:28] LABS: BUN/CREATININE RATIO 10.9 (10-20); CALCIUM 9.5 mg/dl (8.5-10.1); CREATININE 0.8 mg/dl (0.60-1.20); MAGNESIUM 1.9 mg/dl (1.8-2.4); POTASSIUM 3.8 mmol/L (3.5-5.1)
[2017-08-13] MEDS: ENOXAPARIN 40 MG/0.4 ML SYR SQ SCH (08:35)
[2017-08-13] MEDS: MAGNESIUM OXIDE 400 MG TAB PO SCH ×2 (08:36→20:31)
[2017-08-13] MEDS: TIOTROPIUM BROMIDE 28 PUFF/4 GM INH INH SCH ×2 (08:36→20:26)
[2017-08-13] MEDS: MULTIVITAMIN TAB PO SCH (08:36)
[2017-08-13] MEDS: PANTOprazole SOD 40 MG TAB PO SCH (08:37)
[2017-08-13] MEDS: BUDESONIDE/FORMOTEROL FUMARATE 160/4.5 60 PUFFS/INHALER INH SCH ×2 (08:37→20:28)
[2017-08-13] MEDS: GABAPENTIN 300 MG CAP PO SCH ×3 (08:37→20:31)
[2017-08-13] MEDS: DOCUSATE SODIUM 100 MG CAP PO SCH (08:37)
[2017-08-13] MEDS: LOSARTAN POTASSIUM 50 MG TAB PO SCH (08:37)
[2017-08-13] MEDS: CALCIUM 600MG + VIT D 400 IU TAB PO SCH (08:37)
[2017-08-13] MEDS: FUROSEMIDE 40 MG TAB PO SCH (08:38)
[2017-08-13] MEDS: NICOTINE 14 MG/24 HR TDSY TD SCH (08:38)
[2017-08-13] MEDS: FLUTICASONE/SALMETEROL 250/50 (ADVAIR) 14 PUFF/1 INHALER INH SCH ×2 (08:43→20:23)
[2017-08-13] MEDS ORDERED: NURSING VERBAL MED ORDER ONE (11:00)
--- NOTE | 2017-08-13 11:06 | SURGERY PROGRESS NOTE ---
DATE: 08/13/2017 SUBJECTIVE: Mr. Guardado was seen today on 08/13/2017. She has trace edema of her lower extremities, but is quite concerned about them. I explained to her quite carefully today that she had a major operation. I also told her she will have some swelling which will resolve over time. She had over 2000 mL of urine output yesterday. She has some improvement in her swelling. I explained to her important just for her to walk. She has a smaller air leak today and she has drained very little from her chest tube. I inspected all of her robotic trocar sites and they are all clean. Her chest tube sites are clean. She does have some subcutaneous emphysema, but overall I think she is improving. We are going to check a chest x-ray tomorrow and I explained to her quite carefully that she needs to walk and continue her current medication regimen and then hopefully we will get her out of the hospital in the next few days when her air leak resolves.
--- NOTE | 2017-08-13 15:28 | Progress Note ---
Internal Med Progress Note Date of Service: Aug 13, 2017. Provider Documentation: SUBJECTIVE: Seen and examined at bedside States being concerned about leg swelling Also reports pain a chest tube site Denies SOB Has some chest tube air leak Good urine output from lasix Offers no other complaints Family at bedside OBJECTIVE: Vital Signs-as noted below Physical Exam: General Appearance:Moderately built and nourished, no apparent distress Head: normocephalic, Atraumatic Eyes: normal inspection, EOMI, PERRL Neck: supple, Trachea midline Respiratory/Chest: Decreased breath sounds, CTA, + chest tube Cardiovascular: S1, S2, No murmur Abdomen/GI:Soft, Non tender, Bowel sounds present Extremities/Musculoskelatal:normal inspection, no edema Neurologic/Psych:grossly no focal neurological deficits Skin: normal color, warm Lab data as noted below. ASSESSMENT & PLAN: Patient is a 71 yr female with H/O CAD/CABG, HTN, COPD presenting with left sided chest pain. LEFT SIDED PNEUMOTHORAX Left lung mass S/P robot-assisted left thoracoscopy with excision of a mass POD # 4 Frozen section: Negative for malignant cells, shows infectious process Continue Chest tube per CT surgery CT chest showed 30% left-sided pneumothorax, extensive subcutaneous emphysema over the left hemithorax and small L effusion with partial LLL atelectasis Appreciate Pulmonology/CT surgery help Continue Primaxin. Plan to transition to Augmentin Leukocytosis up today likely secondary o pain Appreciate ID Input Blood/Sputum culture negative Bronchial cultures: rare yeast Plan for repeat CXR tomorrow COPD H/O chronic tobacco use Continue home inhalers pulmonology and CT surgery following counselled for smoking cessation Nicotine patch CAD/CABG Held ASA, Plavix for thoracoscopic eval continue Losartan, Metoprolol hold Lasix for now Plan to resume ASA/Plavix when appropriate Leg swelling: S/P IV fluids following surgery Check ECHO Continue lasix Daily weight Venous doppler: No DVT encouraged to ambulate Hyponatremia/Hypokalemia: monitor HTN continue Losartan, Metoprolol DVT PX Lovenox SQ Code Status FULL CODE DISPOSITION anticipate d/c home when medically stable follows with Family practice at [place] area would like to follow up with Pulmonology Dr Duncan in [place] Vital Signs: Date Time Temp Pulse Resp B/P (MAP) Pulse Ox O2 Delivery O2 Flow Rate FiO2 08/13/17 15:15 36.5 101 20 138/73 (94) 94 Nasal Cannula 2.0 08/13/17 11:25 96 18 93 Room Air 08/13/17 10:40 92 95 08/13/17 08:46 Room Air 08/13/17 07:18 96 18 93 Room Air 08/13/17 06:52 36.9 89 16 118/78 (91) 96 2.0 08/13/17 06:00 106 139/73 (95) 92 Room Air 08/13/17 00:05 Room Air 08/12/17 23:16 110 18 91 Room Air 08/12/17 23:04 36.7 107 16 131/73 (92) 92 Room Air 08/12/17 19:09 91 18 93 Room Air 08/12/17 16:40 Room Air 08/12/17 16:29 96 121/76 (91) Lab Results: Results Past 24 Hours Test 08/13/17 06:29 Range/Units White Blood Count 16.26 4.8-10.8 K/uL Red Blood Count 3.63 4.2-5.4 M/uL Hemoglobin 11.2 12.0-16.0 g/dL Hematocrit 33.0 37-47 % Mean Corpuscular Volume 90.9 80-100 fL Mean Corpuscular Hemoglobin 30.9 25-34 pg Mean Corpuscular Hemoglobin Concent 33.9 32-36 g/dl RDW Standard Deviation 45.8 36.4-46.3 fL RDW Coefficient of Variation 13.7 11.5-14.5 % Platelet Count 438 130-400 K/uL Mean Platelet Volume 8.9 7.4-10.4 fL Sodium Level 135 136-145 mmol/L Potassium Level 3.8 3.5-5.1 mmol/L Chloride Level 98 98-107 mmol/L Carbon Dioxide Level 31 21-32 mmol/L Anion Gap 6.0 3-11 mmol/L Blood Urea Nitrogen 9 7-18 mg/dl Creatinine 0.80 0.60-1.20 mg/dl Est Creatinine Clear Calc Drug Dose 69.1 ml/min Estimated GFR () 86.6 Estimated GFR (Non- 74.7 BUN/Creatinine Ratio 10.9 10-20 Random Glucose 102 70-99 mg/dl Calcium Level 9.5 8.5-10.1 mg/dl Magnesium Level 1.9 1.8-2.4 mg/dl
[2017-08-13] MEDS: LORAZEPAM 1 MG TAB PO PRN (16:31)
[2017-08-13] MEDS: HYDROCODONE/ACETAMINOPHEN 7.5/325MG TAB PO PRN ×2 (17:09→23:42)
[2017-08-13] MEDS: ATORVASTATIN 10 MG TAB PO SCH (20:31)
[2017-08-13] MEDS: RANITIDINE HCL 150 MG TAB PO SCH (20:31)
[2017-08-13] MEDS: MONTELUKAST SOD 10 MG TAB PO SCH (20:31)
[2017-08-14] VITALS (13 sets, daily range): BP systolic 103–127; BP diastolic 62–78; PULSE 84–106; TEMP 36.8–37.4; O2SAT 87–97
[2017-08-14] MEDS: IPRATROPIUM BROMIDE NEB SOLN 0.02% 2.5 ML VIAL INH SCH ×7 (03:13→23:17)
[2017-08-14] MEDS: LEVALBUTEROL 1.25MG/0.5ML NEB INH SCH ×7 (03:13→23:17)
[2017-08-14] MEDS: IMIPENEM/CILASTATIN IV 500 MG in D5W 100ML IV SCH ×4 (04:02→22:27)
[2017-08-14] MEDS: METOPROLOL TARTRATE 50 MG TAB PO SCH ×2 (06:36→15:43)
[2017-08-14 06:51] LABS: BASO % 0.2 %; BASO ABS # 0.02 K/uL (0-0.2); COMPLETE YES; EOS % 2.5 %; HEMATOCRIT 31.1 % (37-47); IG% 2.4 %; LYMPH % 16.6 %; LYMPH ABS # 2.05 K/uL (1.2-3.4); MEAN CELL VOLUME 91.2 fL (80-100); MEAN CORPUSCULAR HEMOGLOBIN 31.1 pg (25-34); MEAN CORPUSCULAR HGB CONC 34.1 g/dl (32-36); MEAN PLATELET VOLUME 8.7 fL (7.4-10.4); MONO % 7.1 %; NEUT % 71.2 %; PLATELET COUNT 407 K/uL (130-400); RED BLOOD COUNT 3.41 M/uL (4.2-5.4); WHITE BLOOD COUNT 12.34 K/uL (4.8-10.8)
[2017-08-14 07:17] LABS: BUN/CREATININE RATIO 11.2 (10-20); CALCIUM 8.7 mg/dl (8.5-10.1); CREATININE 0.78 mg/dl (0.60-1.20); POTASSIUM 3.5 mmol/L (3.5-5.1)
--- NOTE | 2017-08-14 07:22 | DIAGNOSTIC IMAGING REPORT ---
CHEST ONE VIEW PORTABLE CLINICAL HISTORY: Pneumothorax COMPARISON STUDY: 08/12/2017 FINDINGS: The cardiac and mediastinal contours remain stable. There is extensive bilateral subcutaneous emphysema left greater than right. The left-sided chest tube remains unchanged in position. There is no definite pneumothorax. Evaluation of the parenchyma is limited due to the extensive subcutaneous emphysema.[ IMPRESSION: Persistent extensive subcutaneous emphysema. No significant change from the prior study. No pneumothorax is visualized. Electronically signed by: Aiden Roe M.D. 08/14/2017 7:20 AM Dictated Date/Time: 08/14/2017 7:19 AM
[2017-08-14] MEDS: BUDESONIDE/FORMOTEROL FUMARATE 160/4.5 60 PUFFS/INHALER INH SCH ×2 (08:31→20:09)
[2017-08-14] MEDS: TIOTROPIUM BROMIDE 28 PUFF/4 GM INH INH SCH ×2 (08:32→20:16)
[2017-08-14] MEDS: FLUTICASONE/SALMETEROL 250/50 (ADVAIR) 14 PUFF/1 INHALER INH SCH ×2 (08:33→20:14)
[2017-08-14] MEDS: MAGNESIUM OXIDE 400 MG TAB PO SCH ×2 (08:34→20:10)
[2017-08-14] MEDS: LOSARTAN POTASSIUM 50 MG TAB PO SCH (08:34)
[2017-08-14] MEDS: PANTOprazole SOD 40 MG TAB PO SCH (08:34)
[2017-08-14] MEDS: FUROSEMIDE 40 MG TAB PO SCH (08:34)
[2017-08-14] MEDS: MULTIVITAMIN TAB PO SCH (08:34)
[2017-08-14] MEDS: GABAPENTIN 300 MG CAP PO SCH ×3 (08:34→20:10)
[2017-08-14] MEDS: CALCIUM 600MG + VIT D 400 IU TAB PO SCH (08:35)
[2017-08-14] MEDS: DOCUSATE SODIUM 100 MG CAP PO SCH (08:35)
[2017-08-14] MEDS: ENOXAPARIN 40 MG/0.4 ML SYR SQ SCH (08:36)
[2017-08-14] MEDS: NICOTINE 14 MG/24 HR TDSY TD SCH (08:36)
--- NOTE | 2017-08-14 08:39 | SURGERY PROGRESS NOTE ---
DATE: 08/14/2017 Ms. Guardado is now 5 days status post her robot-assisted thoracoscopic wedge resection of the left upper lobe of her lung with an apparent hematoma. Her air leak is smaller. She only drained 100 mL from her chest tube yesterday. Her labs are improving. All in all, I am happy with her. She needs to walk more. She only walked twice in the hallway yesterday. I think with mobilization, she will get off the oxygen. She still has some subcutaneous emphysema. It is about the same on the x-ray. She has no infiltrates and no effusions. MTDD
[2017-08-14] MEDS: OXYCODONE HCL IR 5 MG TAB (IMMEDIATE RELEASE) PO PRN ×3 (09:04→20:11)
[2017-08-14] MEDS ORDERED: PERFLUTREN LIPID MICROSPHERE (DEFINITY) IV ONE (09:49)
[2017-08-14] MEDS: ONDANSETRON INJ 2 MG/ML 2 ML VIAL IV PRN (10:24)
--- NOTE | 2017-08-14 11:06 | Progress Note ---
Subjective Date of Service: Aug 14, 2017. Subjective pt with no events. all micro remains negative. wbc improving post op. afb cultures negative. remains on imipenem. afebrile. Objective Vital Signs Date Time Temp Pulse Resp B/P (MAP) Pulse Ox O2 Delivery O2 Flow Rate FiO2 08/14/17 08:49 88 18 90 Room Air 08/14/17 07:30 94 Room Air 08/14/17 07:06 36.9 84 18 126/78 (94) 95 Humidified Oxygen 2.0 08/14/17 06:37 92 127/78 (94) 08/13/17 23:45 93 Nasal Cannula 2.0 90 Humidified Oxygen 08/13/17 22:56 37.0 107 18 130/73 (92) 93 Nasal Cannula 2.0 08/13/17 19:21 100 18 94 Room Air 08/13/17 16:00 Nasal Cannula 1.0 08/13/17 15:15 36.5 101 20 138/73 (94) 94 Nasal Cannula 2.0 08/13/17 11:25 96 18 93 Room Air Laboratory Results Item Value Date Time Acid Fast Stain - Final Resulted 08/09/17 1323 Tissue Left Upper Lobe Gram Stain - Final Complete 08/09/17 1323 Tissue Left Upper Lobe Gram Stain - Final Complete 08/09/17 1245 Abscess Lung, Left Acid Fast Stain - Final Resulted 08/09/17 0000 Bronchial Washings Left Upper Lobe Blood Culture - Final Complete 08/06/17 1937 Blood NO GROWTH Blood Culture - Final Complete 08/06/17 1931 Blood NO GROWTH Last 24 Hours Test 08/14/17 06:17 White Blood Count 12.34 K/uL Red Blood Count 3.41 M/uL Hemoglobin 10.6 g/dL Hematocrit 31.1 % Mean Corpuscular Volume 91.2 fL Mean Corpuscular Hemoglobin 31.1 pg Mean Corpuscular Hemoglobin Concent 34.1 g/dl Platelet Count 407 K/uL Mean Platelet Volume 8.7 fL Neutrophils (%) (Auto) 71.2 % Lymphocytes (%) (Auto) 16.6 % Monocytes (%) (Auto) 7.1 % Eosinophils (%) (Auto) 2.5 % Basophils (%) (Auto) 0.2 % Neutrophils # (Auto) 8.80 K/uL Lymphocytes # (Auto) 2.05 K/uL Monocytes # (Auto) 0.87 K/uL Eosinophils # (Auto) 0.31 K/uL Basophils # (Auto) 0.02 K/uL RDW Standard Deviation 45.9 fL RDW Coefficient of Variation 13.8 % Immature Granulocyte % (Auto) 2.4 % Immature Granulocyte # (Auto) 0.29 K/uL Sodium Level 137 mmol/L Potassium Level 3.5 mmol/L Chloride Level 100 mmol/L Carbon Dioxide Level 31 mmol/L Anion Gap 6.0 mmol/L Blood Urea Nitrogen 9 mg/dl Creatinine 0.78 mg/dl Est Creatinine Clear Calc Drug Dose 70.8 ml/min Estimated GFR () 89.3 Estimated GFR (Non- 77.0 BUN/Creatinine Ratio 11.2 Random Glucose 107 mg/dl Calcium Level 8.7 mg/dl Assessment and Plan (1) Pleural effusion Assessment & Plan: ? infectious vs malignant. cultures negative so far, will continue abx pending biopsy findings. will follow. 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 No new ID recs, will sign off, thank you (2) Pneumothorax
[2017-08-14] MEDS: HYDROCODONE/ACETAMINOPHEN 7.5/325MG TAB PO PRN (12:47)
--- NOTE | 2017-08-14 15:18 | Progress Note ---
Internal Med Progress Note Date of Service: Aug 14, 2017. Provider Documentation: SUBJECTIVE: Seen and examined at bedside Feels well today Leg swelling improving Pain at catheter site controlled Denies SOB Offers no other complaints OBJECTIVE: Vital Signs-as noted below Physical Exam: General Appearance:Moderately built and nourished, no apparent distress Head: normocephalic, Atraumatic Eyes: normal inspection, EOMI, PERRL Neck: supple, Trachea midline Respiratory/Chest: Decreased breath sounds, CTA, + chest tube Cardiovascular: S1, S2, No murmur Abdomen/GI:Soft, Non tender, Bowel sounds present Extremities/Musculoskelatal:normal inspection, no edema Neurologic/Psych:grossly no focal neurological deficits Skin: normal color, warm Lab data as noted below. ASSESSMENT & PLAN: Patient is a 71 yr female with H/O CAD/CABG, HTN, COPD presenting with left sided chest pain. LEFT SIDED PNEUMOTHORAX Left lung mass S/P robot-assisted left thoracoscopy with excision of a mass POD # 5 Frozen section: Negative for malignant cells, shows infectious process Continue Chest tube per CT surgery CT chest showed 30% left-sided pneumothorax, extensive subcutaneous emphysema over the left hemithorax and small L effusion with partial LLL atelectasis Appreciate Pulmonology/CT surgery help Continue Primaxin. Plan to transition to Augmentin per ID Leukocytosis up today likely secondary o pain Appreciate ID Input Blood/Sputum culture negative Bronchial cultures: rare yeast CXR:: Persistent extensive subcutaneous emphysema leukocytosis resolving COPD H/O chronic tobacco use Continue home inhalers pulmonology and CT surgery following counselled for smoking cessation Nicotine patch CAD/CABG Held ASA, Plavix for thoracoscopic eval continue Losartan, Metoprolol hold Lasix for now Plan to resume ASA/Plavix when appropriate Leg swelling: S/P IV fluids following surgery ECHO pending Continue lasix at 20mg AM for now (Takes Hyzaar at home) Daily weight Venous doppler: No DVT encouraged to ambulate Hyponatremia/Hypokalemia: Resolved monitor HTN continue Losartan, Metoprolol takes Hyzaar at home DVT PX Lovenox SQ Code Status FULL CODE DISPOSITION anticipate d/c home when medically stable once cleared by CT surgery follows with Family practice at [place] area would like to follow up with Pulmonology Dr Duncan in [place] Vital Signs: Date Time Temp Pulse Resp B/P (MAP) Pulse Ox O2 Delivery O2 Flow Rate FiO2 9/18/17 15:13 88 18 90 Room Air 08/14/17 08:49 88 18 90 Room Air 08/14/17 07:30 94 Room Air 08/14/17 07:06 36.9 84 18 126/78 (94) 95 Humidified Oxygen 2.0 08/14/17 06:37 92 127/78 (94) 08/13/17 23:45 93 Nasal Cannula 2.0 90 Humidified Oxygen 08/13/17 22:56 37.0 107 18 130/73 (92) 93 Nasal Cannula 2.0 08/13/17 19:21 100 18 94 Room Air 08/13/17 16:00 Nasal Cannula 1.0 Lab Results: Results Past 24 Hours Test 08/14/17 06:17 Range/Units White Blood Count 12.34 4.8-10.8 K/uL Red Blood Count 3.41 4.2-5.4 M/uL Hemoglobin 10.6 12.0-16.0 g/dL Hematocrit 31.1 37-47 % Mean Corpuscular Volume 91.2 80-100 fL Mean Corpuscular Hemoglobin 31.1 25-34 pg Mean Corpuscular Hemoglobin Concent 34.1 32-36 g/dl Platelet Count 407 130-400 K/uL Mean Platelet Volume 8.7 7.4-10.4 fL Neutrophils (%) (Auto) 71.2 % Lymphocytes (%) (Auto) 16.6 % Monocytes (%) (Auto) 7.1 % Eosinophils (%) (Auto) 2.5 % Basophils (%) (Auto) 0.2 % Neutrophils # (Auto) 8.80 1.4-6.5 K/uL Lymphocytes # (Auto) 2.05 1.2-3.4 K/uL Monocytes # (Auto) 0.87 0.11-0.59 K/uL Eosinophils # (Auto) 0.31 0-0.5 K/uL Basophils # (Auto) 0.02 0-0.2 K/uL RDW Standard Deviation 45.9 36.4-46.3 fL RDW Coefficient of Variation 13.8 11.5-14.5 % Immature Granulocyte % (Auto) 2.4 % Immature Granulocyte # (Auto) 0.29 0.00-0.02 K/uL Sodium Level 137 136-145 mmol/L Potassium Level 3.5 3.5-5.1 mmol/L Chloride Level 100 98-107 mmol/L Carbon Dioxide Level 31 21-32 mmol/L Anion Gap 6.0 3-11 mmol/L Blood Urea Nitrogen 9 7-18 mg/dl Creatinine 0.78 0.60-1.20 mg/dl Est Creatinine Clear Calc Drug Dose 70.8 ml/min Estimated GFR () 89.3 Estimated GFR (Non- 77.0 BUN/Creatinine Ratio 11.2 10-20 Random Glucose 107 70-99 mg/dl Calcium Level 8.7 8.5-10.1 mg/dl
--- NOTE | 2017-08-14 16:56 | DIAGNOSTIC IMAGING REPORT ---
SINGLE VIEW CHEST CLINICAL HISTORY: Increasing crepitus. FINDINGS: An AP, portable, upright chest radiograph is compared to study dated 08/14/2017. Correlation is made with chest CT dated 08/06/2017. The examination is degraded by portable technique and patient rotation. The patient is status post midline sternotomy. The heart is enlarged and there is atherosclerotic calcification of the thoracic aorta. The pulmonary vasculature is noncongested. A left-sided chest tube is again noted. The tip appears lower than on the earlier study. Consolidative change is again seen at the left lung base. Airspace opacities are questioned throughout the right lung but this is difficult to assess due to extensive overlying subcutaneous gas. No pneumothorax is clearly identified. The skeletal structures are osteopenic. The bony thorax is grossly intact. Calcific tendinopathy is noted in the right shoulder. Extensive subcutaneous emphysema involving the chest wall and lower neck is again noted. This has modestly increased from earlier today. IMPRESSION: 1. Extensive subcutaneous emphysema is again noted. This has modestly increased from earlier today. 2. A left-sided chest tube is again noted. The tip of the tube appears lower as compared to today's earlier study. 3. No pneumothorax is clearly seen but this is difficult to assess due to extensive overlying soft tissue gas. 4. Consolidation is again seen at the left lung base. Opacities are questioned in the right lung but this is difficult to assess. Clinical correlation will be required. Electronically signed by: Slade Aranda M.D. 08/14/2017 4:54 PM Dictated Date/Time: 08/14/2017 4:50 PM
[2017-08-14] MEDS: ACETAMINOPHEN 325 MG TAB PO PRN (17:32)
--- NOTE | 2017-08-14 18:31 | ECHOCARDIOGRAM REPORT ---
*NOTICE TO RECEIVING REPUBLICAN AGENCY This information is strictly Confidential and protected under [place] law. [place] law prohibits you from making any further disclosure of this information unless further disclosure is expressly permitted by the written consent of the person to whom it pertains or is authorized by law. A general authorization for the release of medical or other information is not sufficient for this purpose. Hospital accepts no responsibility if the information is made available to any other person, INCLUDING THE PATIENT. Interpretation Summary * Name: MILDRED CORONA Study Date: 08/14/2017 08:31 AM * [place] [place] * : 1945 (M/d/yyyy) Gender: Female Height: 63 in * Age: 71 yrs Ethnicity: [place] Weight: 195 lb * Ordering Physician: Rahul Barboza * Performed By: Jessi Eddy * * Reason For Study: CHF * BSA: 1.9 m2 * The study was technically difficult. * The study was technically limited. * -- Conclusions -- * The valves were not well visualized and the Doppler evaluation was not sufficient. * Refer to below for details. Procedure Details * The study was technically limited. * The study was technically difficult. * There were technical limitations due to patient'sPoor acoustic windows secondary to severe lung disease. * Patient has bilateral subcutaneous emphysema and a chest tube with bandages under her left breast making it difficult to get apical images. * A contrast injection of Definity was performed to improve assessment of LV function. * Contrast was injected into an intravenous site in the right arm. * One vial of Definity ultrasound contrast was diluted in normal saline to a total volume of 10 ml. A total of '5' ml of solution was administered during imaging. * Lot # [id number] of Definity utilized for procedure. * Expiration date 09/13. * The attending nurse who injected the contrast agent was heladio jessica RN. * A complete two-dimensional transthoracic echocardiogram was performed (2D, M-mode, Doppler and color flow Doppler). Left Ventricle * The left ventricle is grossly normal size. * Left ventricular systolic function is normal. Right Ventricle * The right ventricle is not well visualized. Atria * The left atrium is not well visualized. * Right atrium not well visualized. Mitral Valve * There is mild mitral annular calcification. * There is no mitral valve stenosis. * Significant mitral regurgitation is absent. Tricuspid Valve * The tricuspid valve is not well visualized. Aortic Valve * The aortic valve is not well visualized. Pulmonic Valve * The pulmonic valve is not well visualized. Great Vessels * The aortic root and proximal ascending aorta are normal sized. Pericardium/Pleural * There is an echodesity in the anterior pericardial space that appears consistent with pericardial fat. Great Vessels * Normal inferior vena cava diameter and respiratory variation suggests normal central venous pressure. Left Ventricular Diastolic Function * Grade I diastolic dysfunction, (abnormal relaxation pattern). MMode 2D Measurements and Calculations IVSd 0.86 cm IVSs 1.2 cm LVIDd 3.1 cm LVIDs 2.1 cm LVPWd 1.1 cm LVPWs 1.8 cm IVS/LVPW 0.75 FS 32.9 % EDV(Teich) 38.7 ml ESV(Teich) 14.4 ml EF(Teich) 62.8 % EDV(cubed) 30.5 ml ESV(cubed) 9.2 ml EF(cubed) 69.7 % % IVS thick 39.3 % % LVPW thick 61.0 % LV mass(C)d 87.1 grams LV mass(C)dI 45.5 grams/m\S\2 LV mass(C)s 105.3 grams LV mass(C)sI 55.1 grams/m\S\2 CO(Teich) 2.0 l/min CI(Teich) 1.1 l/min/m\S\2 SV(Teich) 24.3 ml SI(Teich) 12.7 ml/m\S\2 CO(cubed) 1.8 l/min CI(cubed) 0.93 l/min/m\S\2 SV(cubed) 21.3 ml SI(cubed) 11.1 ml/m\S\2 LVAd ap4 32.2 cm\S\2 LVLd ap4 8.5 cm EDV(MOD-sp4) 101.0 ml LVAs ap4 15.7 cm\S\2 LVLs ap4 6.3 cm ESV(MOD-sp4) 31.7 ml EF(MOD-sp4) 68.6 % CO(MOD-sp4) 5.8 l/min CI(MOD-sp4) 3.0 l/min/m\S\2 SV(MOD-sp4) 69.3 ml SI(MOD-sp4) 36.2 ml/m\S\2 Doppler Measurements and Calculations MV E max germán 75.2 cm/sec MV A max germán 99.4 cm/sec MV E/A 0.76 MV dec time 0.23 sec Ao V2 max 90.1 cm/sec Ao max PG 3.2 mmHg Ao max PG (full) 1.2 mmHg LV V1 max PG 2.1 mmHg LV V1 max 71.8 cm/sec MR max germán 538.0 cm/sec MR max PG 115.8 mmHg
[2017-08-14] MEDS: ATORVASTATIN 10 MG TAB PO SCH (20:10)
[2017-08-14] MEDS: RANITIDINE HCL 150 MG TAB PO SCH (20:10)
[2017-08-14] MEDS: MONTELUKAST SOD 10 MG TAB PO SCH (20:11)
[2017-08-14] MEDS ORDERED: NURSING VERBAL MED ORDER ONE (22:15)
[2017-08-14] MEDS ORDERED: SODIUM CHLORIDE 0.65% NA SOLN 45 ML (OCEAN) PRN (22:30)
[2017-08-15] VITALS (8 sets, daily range): BP systolic 112–123; BP diastolic 62–73; PULSE 68–94; TEMP 36.6–37.3; O2SAT 93–97
[2017-08-15] MEDS: HYDROCODONE/ACETAMINOPHEN 7.5/325MG TAB PO PRN ×3 (00:26→15:10)
[2017-08-15] MEDS: LORAZEPAM 1 MG TAB PO PRN ×2 (00:26→22:14)
[2017-08-15] MEDS: LEVALBUTEROL 1.25MG/0.5ML NEB INH SCH ×5 (03:45→23:38)
[2017-08-15] MEDS: IPRATROPIUM BROMIDE NEB SOLN 0.02% 2.5 ML VIAL INH SCH ×6 (03:45→23:38)
[2017-08-15] MEDS: IMIPENEM/CILASTATIN IV 500 MG in D5W 100ML IV SCH ×4 (04:23→22:09)
[2017-08-15] MEDS: OXYCODONE HCL IR 5 MG TAB (IMMEDIATE RELEASE) PO PRN ×4 (04:41→22:42)
[2017-08-15] MEDS: METOPROLOL TARTRATE 50 MG TAB PO SCH ×2 (06:09→16:03)
[2017-08-15 06:58] LABS: BASO % 0.1 %; BASO ABS # 0.01 K/uL (0-0.2); COMPLETE YES; HEMATOCRIT 30.9 % (37-47); LYMPH % 8.2 %; LYMPH ABS # 1.41 K/uL (1.2-3.4); MEAN CELL VOLUME 90.9 fL (80-100); MEAN CORPUSCULAR HEMOGLOBIN 30.6 pg (25-34); MEAN CORPUSCULAR HGB CONC 33.7 g/dl (32-36); MEAN PLATELET VOLUME 8.5 fL (7.4-10.4); NEUT % 82.7 %; PLATELET COUNT 422 K/uL (130-400); WHITE BLOOD COUNT 17.28 K/uL (4.8-10.8)
[2017-08-15 07:24] LABS: BUN/CREATININE RATIO 10.7 (10-20); CALCIUM 8.5 mg/dl (8.5-10.1); CREATININE 0.69 mg/dl (0.60-1.20); POTASSIUM 3.5 mmol/L (3.5-5.1)
[2017-08-15] MEDS: FLUTICASONE/SALMETEROL 250/50 (ADVAIR) 14 PUFF/1 INHALER INH SCH (08:30)
[2017-08-15] MEDS: BUDESONIDE/FORMOTEROL FUMARATE 160/4.5 60 PUFFS/INHALER INH SCH ×2 (08:31→16:16)
[2017-08-15] MEDS: TIOTROPIUM BROMIDE 28 PUFF/4 GM INH INH SCH ×2 (08:31→16:17)
[2017-08-15] MEDS: DOCUSATE SODIUM 100 MG CAP PO SCH (08:31)
[2017-08-15] MEDS: PANTOprazole SOD 40 MG TAB PO SCH (08:32)
[2017-08-15] MEDS: FUROSEMIDE 20 MG TAB PO SCH (08:32)
[2017-08-15] MEDS: MULTIVITAMIN TAB PO SCH (08:32)
[2017-08-15] MEDS: GABAPENTIN 300 MG CAP PO SCH ×3 (08:32→22:10)
[2017-08-15] MEDS: LOSARTAN POTASSIUM 50 MG TAB PO SCH (08:33)
[2017-08-15] MEDS: MAGNESIUM OXIDE 400 MG TAB PO SCH ×2 (08:33→22:10)
[2017-08-15] MEDS: CALCIUM 600MG + VIT D 400 IU TAB PO SCH (08:34)
[2017-08-15] MEDS: NICOTINE 14 MG/24 HR TDSY TD SCH (08:34)
[2017-08-15] MEDS ORDERED: NURSING VERBAL MED ORDER ONE (08:45)
[2017-08-15] MEDS: ENOXAPARIN 40 MG/0.4 ML SYR SQ SCH (10:00)
--- NOTE | 2017-08-15 12:02 | SURGERY PROGRESS NOTE ---
DATE: 08/15/2017 Ms. Guardado was seen today. She looks better than she did last night. She is requiring less oxygen and is almost off on 1 liter. She had 94% saturations while I was in the room. She walked a great deal yesterday. We are going to continue doing that now. Subcutaneous emphysema is better clinically. She still has an air leak, although it is very small. We will talk to the patient about ambulation. She is not wheezing today on exam and she is in better spirits. We are going to have to wait until this air leak stops. It is important to understand this patient had necrotic lung. It is also important to understand it is difficult to say where to stop when you are resecting this. I think the remaining lung is viable; however, we will continue to monitor her and probably follow her up with serial CT scans after she is discharged.
--- NOTE | 2017-08-15 18:42 | Progress Note ---
Internal Med Progress Note Date of Service: Aug 15, 2017. Provider Documentation: SUBJECTIVE: Patient seen and examined while sitting on chair. denies shortness of breath or chets pain or pain at site of chest tube of lower left back OBJECTIVE: Physical Exam: General Appearance:Moderately built and nourished, no apparent distress Head: normocephalic, Atraumatic Eyes: normal inspection, EOMI, PERRL Neck: supple, Trachea midline Respiratory/Chest: has crackles audible on auscultation, + chest tube Cardiovascular: S1, S2, No murmur Abdomen/GI:Soft, Non tender, Bowel sounds present Extremities: bilateral lower extremity edema Neurologic/Psych:grossly no focal neurological deficits Skin: normal color, warm ASSESSMENT & PLAN: Patient is a 71 yr female with H/O CAD/CABG, HTN, COPD presenting with left sided chest pain and then with left lung mass s/p excision with left sided pneumothorax s/p chest tube LEFT SIDED PNEUMOTHORAX Left lung mass S/P robot-assisted left thoracoscopy with excision of a mass from 08/09/17 Frozen section: Negative for malignant cells, shows infectious process Continue Chest tube per CT surgery CT chest showed 30% left-sided pneumothorax, extensive subcutaneous emphysema over the left hemithorax and small L effusion with partial LLL atelectasis As per recent CT surgery note 08/15/17: Subcutaneous emphysema is better clinically, still has air leak s/p left lung mass removed and perhaps infectious process: Continue Primaxin. Plan to transition to Augmentin per ID, appreciate follow up ID note Blood/Sputum culture negative Bronchial cultures: rare yeast COPD H/O chronic tobacco use Continue home inhalers pulmonology and CT surgery following counselled for smoking cessation Nicotine patch CAD/CABG Held ASA, Plavix for thoracoscopic eval continue Losartan, Metoprolol hold Lasix for now Plan to resume ASA/Plavix when appropriate Leg swelling: S/P IV fluids following surgery ECHO pending Continue lasix at 20mg AM for now (Takes Hyzaar at home) Daily weight Venous doppler: No DVT encouraged to ambulate Hyponatremia/Hypokalemia: Resolved monitor HTN continue Losartan, Metoprolol takes Hyzaar at home DVT PX Lovenox SQ Code Status FULL CODE DISPOSITION anticipate d/c home when medically stable once cleared by CT surgery follows with Family practice at [place] area would like to follow up with Pulmon[facility] [employer] Vital Signs: Date Time Temp Pulse Resp B/P (MAP) Pulse Ox O2 Delivery O2 Flow Rate FiO2 08/15/17 15:32 93 18 94 Nasal Cannula 2.0 08/15/17 15:30 36.6 92 18 119/71 (87) 95 Room Air 08/15/17 11:20 36.6 76 16 118/64 (82) 93 Nasal Cannula 1.0 08/15/17 09:16 Nasal Cannula 1.0 Humidified Oxygen 08/15/17 07:30 80 18 96 Nasal Cannula 2.0 08/15/17 07:17 36.6 68 16 112/62 (79) 95 Nasal Cannula 2.0 08/15/17 06:07 94 117/68 (84) 95 Nasal Cannula 2.0 08/14/17 23:30 92 18 95 Nasal Cannula 2.0 08/14/17 23:30 Nasal Cannula 3.0 08/14/17 23:03 36.8 97 20 114/75 (88) 96 Nasal Cannula 2.0 Humidified Oxygen 08/14/17 22:00 97 Nasal Cannula 3.0 Humidified Oxygen 08/14/17 19:48 99 18 93 Room Air Lab Results: Results Past 24 Hours Test 08/15/17 06:42 Range/Units White Blood Count 17.28 4.8-10.8 K/uL Red Blood Count 3.40 4.2-5.4 M/uL Hemoglobin 10.4 12.0-16.0 g/dL Hematocrit 30.9 37-47 % Mean Corpuscular Volume 90.9 80-100 fL Mean Corpuscular Hemoglobin 30.6 25-34 pg Mean Corpuscular Hemoglobin Concent 33.7 32-36 g/dl Platelet Count 422 130-400 K/uL Mean Platelet Volume 8.5 7.4-10.4 fL Neutrophils (%) (Auto) 82.7 % Lymphocytes (%) (Auto) 8.2 % Monocytes (%) (Auto) 7.0 % Eosinophils (%) (Auto) 0.0 % Basophils (%) (Auto) 0.1 % Neutrophils # (Auto) 14.31 1.4-6.5 K/uL Lymphocytes # (Auto) 1.41 1.2-3.4 K/uL Monocytes # (Auto) 1.21 0.11-0.59 K/uL Eosinophils # (Auto) 0.00 0-0.5 K/uL Basophils # (Auto) 0.01 0-0.2 K/uL RDW Standard Deviation 45.9 36.4-46.3 fL RDW Coefficient of Variation 13.6 11.5-14.5 % Immature Granulocyte % (Auto) 2.0 % Immature Granulocyte # (Auto) 0.34 0.00-0.02 K/uL Sodium Level 134 136-145 mmol/L Potassium Level 3.5 3.5-5.1 mmol/L Chloride Level 97 98-107 mmol/L Carbon Dioxide Level 32 21-32 mmol/L Anion Gap 5.0 3-11 mmol/L Blood Urea Nitrogen 7 7-18 mg/dl Creatinine 0.69 0.60-1.20 mg/dl Est Creatinine Clear Calc Drug Dose 80.1 ml/min Estimated GFR () 102.2 Estimated GFR (Non- 88.2 BUN/Creatinine Ratio 10.7 10-20 Random Glucose 117 70-99 mg/dl Calcium Level 8.5 8.5-10.1 mg/dl
[2017-08-15] MEDS: MONTELUKAST SOD 10 MG TAB PO SCH (22:10)
[2017-08-15] MEDS: ATORVASTATIN 10 MG TAB PO SCH (22:10)
[2017-08-15] MEDS: RANITIDINE HCL 150 MG TAB PO SCH (22:11)
[2017-08-16] VITALS (7 sets, daily range): BP systolic 114–127; BP diastolic 69–77; PULSE 85–101; TEMP 36.6–37.3; O2SAT 90–96
[2017-08-16] MEDS: OXYCODONE HCL IR 5 MG TAB (IMMEDIATE RELEASE) PO PRN ×5 (03:10→20:53)
[2017-08-16] MEDS: LEVALBUTEROL 1.25MG/0.5ML NEB INH SCH ×5 (04:00→19:58)
[2017-08-16] MEDS: IPRATROPIUM BROMIDE NEB SOLN 0.02% 2.5 ML VIAL INH SCH ×5 (04:00→19:58)
[2017-08-16] MEDS: METOPROLOL TARTRATE 50 MG TAB PO SCH ×2 (06:09→15:58)
[2017-08-16] MEDS: ONDANSETRON INJ 2 MG/ML 2 ML VIAL IV PRN (06:20)
[2017-08-16 07:08] LABS: BASO % 0.2 %; BASO ABS # 0.04 K/uL (0-0.2); COMPLETE YES; EOS % 0.5 %; IG% 1.7 %; LYMPH % 8.4 %; MEAN CELL VOLUME 91.4 fL (80-100); MEAN CORPUSCULAR HEMOGLOBIN 30.9 pg (25-34); MEAN CORPUSCULAR HGB CONC 33.8 g/dl (32-36); MEAN PLATELET VOLUME 8.6 fL (7.4-10.4); MONO % 5.8 %; NEUT % 83.4 %; PLATELET COUNT 498 K/uL (130-400); WHITE BLOOD COUNT 20.18 K/uL (4.8-10.8)
[2017-08-16 07:42] LABS: BUN/CREATININE RATIO 11.2 (10-20); CALCIUM 8.9 mg/dl (8.5-10.1); CREATININE 0.66 mg/dl (0.60-1.20); POTASSIUM 3.5 mmol/L (3.5-5.1)
[2017-08-16 07:45] LABS: ALB/GLOB RATIO 0.7 (0.9-2)
[2017-08-16] MEDS: ENOXAPARIN 40 MG/0.4 ML SYR SQ SCH (07:56)
[2017-08-16] MEDS: GABAPENTIN 300 MG CAP PO SCH ×3 (07:56→20:53)
[2017-08-16] MEDS: NICOTINE 14 MG/24 HR TDSY TD SCH (07:56)
[2017-08-16] MEDS: PANTOprazole SOD 40 MG TAB PO SCH (07:56)
[2017-08-16] MEDS: TIOTROPIUM BROMIDE 28 PUFF/4 GM INH INH SCH ×2 (07:57→16:39)
[2017-08-16] MEDS: BUDESONIDE/FORMOTEROL FUMARATE 160/4.5 60 PUFFS/INHALER INH SCH ×2 (07:57→16:38)
[2017-08-16] MEDS ORDERED: AMOXICILLIN/CLAVULANATE TAB 875 MG TAB PO SCH (08:30)
[2017-08-16] MEDS: DOCUSATE SODIUM 100 MG CAP PO SCH (08:42)
[2017-08-16] MEDS: LOSARTAN POTASSIUM 50 MG TAB PO SCH (08:42)
[2017-08-16] MEDS: MULTIVITAMIN TAB PO SCH (08:43)
[2017-08-16] MEDS: CALCIUM 600MG + VIT D 400 IU TAB PO SCH (08:43)
[2017-08-16] MEDS: FUROSEMIDE 20 MG TAB PO SCH (08:43)
[2017-08-16] MEDS: MAGNESIUM OXIDE 400 MG TAB PO SCH ×2 (08:43→20:53)
--- NOTE | 2017-08-16 08:51 | SURGERY PROGRESS NOTE ---
DATE: 08/16/2017 SUBJECTIVE: Ms. Guardado was seen today. She is ambulating in the hallway. She is on room air. Her subcutaneous emphysema is still present, although I think a bit better. Swelling in her legs and her pedal area has improved. She has a small air leak today. Her drainage is serous in nature. Her heart rate is in the 80s and 90s. Maximal temperature is 37.3. She has no wheezing on auscultation today. Her white count is 20,180 with a hemoglobin stable at 10.8. She is on imipenem and has been seen by infectious disease. We did see some yeast in her bronchial washings, otherwise, there has been no growth from anything else. ASSESSMENT AND PLAN: Postoperative day #7 status post robotic resection of a portion of the upper lobe with necrotic lung. Her air leak appears to be improving and clinically, she is stable and I am a bit worried about her white count of over 20,000. As her cultures are negative and she is afebrile, we will continue to watch her. When her air leak resolves, we will remove her chest tube and let her go home. It appears to be getting better daily. I have some concerns about Ms. Guardado. First of all, it is still unclear to me why she had this necrosis of her lung. There was also some hemorrhage subpleurally. I did a generous wedge resection, shows no evidence of malignancy, but the necrotic lung with blood was worrisome. Hopefully this will resolve and we will get her chest tube out. JACIEL
--- NOTE | 2017-08-16 09:01 | Progress Note ---
Subjective Date of Service: Aug 16, 2017. Subjective remains afebrile. all culture negative with exception of c. albicans from one culture, likely colonization. remains on iv abx. has pcn allergy, was to transition to po augmentin but with documented allergy will transition to levaquin to complete course. following with CT surgery for management of chest tube. no acute events. Objective Vital Signs Date Time Temp Pulse Resp B/P (MAP) Pulse Ox O2 Delivery O2 Flow Rate FiO2 08/16/17 07:38 99 18 90 Room Air 08/16/17 07:21 37.3 85 17 123/75 (91) 96 Nasal Cannula 2.0 08/16/17 06:06 93 127/69 (88) 08/15/17 23:30 Nasal Cannula 2.0 Humidified Oxygen 08/15/17 23:19 37.3 93 16 123/73 (90) 97 Nasal Cannula 2.0 Humidified Oxygen 08/15/17 19:11 89 18 94 Nasal Cannula 2.0 08/15/17 16:05 Nasal Cannula 1.0 08/15/17 15:32 93 18 94 Nasal Cannula 2.0 08/15/17 15:30 36.6 92 18 119/71 (87) 95 Room Air 08/15/17 11:20 36.6 76 16 118/64 (82) 93 Nasal Cannula 1.0 08/15/17 09:16 Nasal Cannula 1.0 Humidified Oxygen Laboratory Results Item Value Date Time Acid Fast Stain - Final Resulted 08/09/17 1323 Tissue Left Upper Lobe Fungal Smear - Final Resulted 08/09/17 1323 Tissue Left Upper Lobe Gram Stain - Final Complete 08/09/17 1323 Tissue Left Upper Lobe Gram Stain - Final Complete 08/09/17 1245 Abscess Lung, Left Acid Fast Stain - Final Resulted 08/09/17 0000 Bronchial Washings Left Upper Lobe Gram Stain - Final Complete 08/09/17 0000 Bronchial Washings Left Upper Lobe Gram Stain - Final Complete 08/06/17 2300 Sputum Expectorated Sputum Blood Culture - Final Complete 08/06/171936 Blood NO GROWTH Blood Culture - Final Complete 08/06/171930 Blood NO GROWTH Last 24 Hours Test 08/16/17 06:27 White Blood Count 20.18 K/uL Red Blood Count 3.50 M/uL Hemoglobin 10.8 g/dL Hematocrit 32.0 % Mean Corpuscular Volume 91.4 fL Mean Corpuscular Hemoglobin 30.9 pg Mean Corpuscular Hemoglobin Concent 33.8 g/dl Platelet Count 498 K/uL Mean Platelet Volume 8.6 fL Neutrophils (%) (Auto) 83.4 % Lymphocytes (%) (Auto) 8.4 % Monocytes (%) (Auto) 5.8 % Eosinophils (%) (Auto) 0.5 % Basophils (%) (Auto) 0.2 % Neutrophils # (Auto) 16.81 K/uL Lymphocytes # (Auto) 1.70 K/uL Monocytes # (Auto) 1.18 K/uL Eosinophils # (Auto) 0.10 K/uL Basophils # (Auto) 0.04 K/uL RDW Standard Deviation 45.8 fL RDW Coefficient of Variation 13.6 % Immature Granulocyte % (Auto) 1.7 % Immature Granulocyte # (Auto) 0.35 K/uL Sodium Level 135 mmol/L Potassium Level 3.5 mmol/L Chloride Level 97 mmol/L Carbon Dioxide Level 32 mmol/L Anion Gap 6.0 mmol/L Blood Urea Nitrogen 7 mg/dl Creatinine 0.66 mg/dl Est Creatinine Clear Calc Drug Dose 83.7 ml/min Estimated GFR () 103.7 Estimated GFR (Non- 89.5 BUN/Creatinine Ratio 11.2 Random Glucose 111 mg/dl Calcium Level 8.9 mg/dl Total Bilirubin 0.4 mg/dl Aspartate Amino Transf (AST/SGOT) 14 U/L Alanine Aminotransferase (ALT/SGPT) 13 U/L Alkaline Phosphatase 90 U/L Total Protein 6.2 gm/dl Albumin 2.6 gm/dl Globulin 3.6 gm/dl Albumin/Globulin Ratio 0.7 Assessment and Plan (1) Pleural effusion Assessment & Plan: ? infectious vs malignant. cultures negative so far, will continue abx pending biopsy findings. will follow. If cultures remain negative ( was on abx at time of OR and also had azithro as outpt [employer] [facility]) she could be transitioned to po levaquin x 21 days. No new ID recs, will sign off, thank you (2) Pneumothorax
[2017-08-16] MEDS: LEVOFLOXACIN 750 MG TAB PO SCH (11:22)
[2017-08-16] MEDS ORDERED: DiphenhydrAMINE INJ 25 MG in SYRINGE 0 ML IV PRN (11:45)
[2017-08-16] MEDS ORDERED: DiphenhydrAMINE HCL 50 MG/ML VIAL IV PRN (12:00)
--- NOTE | 2017-08-16 15:48 | Progress Note ---
Internal Med Progress Note Date of Service: Aug 16, 2017. Provider Documentation: SUBJECTIVE: Patient seen and examined while sitting on chair. denies shortness of breath or chests pain or pain at site of chest tube of lower left back. patient counseled on oral antibiotics. patient agrees to try levaquin as per infectious disease recommendations OBJECTIVE: Physical Exam: General Appearance: no apparent distress Head: normocephalic, Atraumatic Eyes: normal inspection, EOMI, PERRL Neck: supple, Trachea midline Respiratory/Chest: less crackles audible on auscultation of chest compared to yesterday, chest tube Cardiovascular: S1, S2, No murmur Abdomen/GI:Soft, Non tender, Bowel sounds present Extremities: bilateral lower extremity edema Neurologic/Psych:grossly no focal neurological deficits Skin: normal color, warm ASSESSMENT & PLAN: Patient is a 71 yr female with H/O CAD/CABG, HTN, COPD presenting with left sided chest pain. Postoperative day #7 status post robotic resection of a portion of the upper lobe with necrotic lung with and left chest tube Left necrotic lung mass S/P robot-assisted left thoracoscopy with excision of a mass from 08/09/17 Frozen section: Negative for malignant cells, shows infectious process Continue Chest tube per CT surgery CT chest showed 30% left-sided pneumothorax, extensive subcutaneous emphysema over the left hemithorax and small L effusion with partial LLL atelectasis As per recent CT surgery note 08/16/17: Subcutaneous emphysema is better clinically, still has air leak, with plans to discharge patient once chest tube is taken out s/p left necrotic lung mass removed elevated WBC Transitioned from Primaxin IV to Levaquin PO as per infectious disease service and to keep this regimen for 21 days Blood/Sputum culture negative Bronchial cultures: rare yeast COPD H/O chronic tobacco use Continue home inhalers counseled for smoking cessation, Nicotine patch CAD/CABG ASA, Plavix was held for thoracoscopic evaluation, will restart after chest tube removed continue Losartan, Metoprolol hold Lasix for now Leg swelling: S/P IV fluids following surgery ECHO Grade I diastolic dysfunction however was technically limited Continue lasix at 20mg AM for now (Takes Hyzaar at home) Daily weight Venous doppler: No DVT encouraged to ambulate Hyponatremia/Hypokalemia: Resolved monitor HTN continue Losartan, Metoprolol takes Hyzaar at home DVT PX Lovenox SQ Code Status FULL CODE DISPOSITION anticipate d/c home when medically stable once cleared by CT surgery follows with Family practice at [place] area would like to follow up with Pulmonology Dr Duncan in [place] Vital Signs: Date Time Temp Pulse Resp B/P (MAP) Pulse Ox O2 Delivery O2 Flow Rate FiO2 08/16/17 15:25 36.6 99 20 114/72 (86) 94 Humidified Oxygen 2.0 08/16/17 11:34 87 14 90 Room Air 08/16/17 07:38 99 18 90 Room Air 08/16/17 07:30 Room Air 08/16/17 07:21 37.3 85 17 123/75 (91) 96 Nasal Cannula 2.0 08/16/17 06:06 93 127/69 (88) 08/15/17 23:30 Nasal Cannula 2.0 Humidified Oxygen 08/15/17 23:19 37.3 93 16 123/73 (90) 97 Nasal Cannula 2.0 Humidified Oxygen 08/15/17 19:11 89 18 94 Nasal Cannula 2.0 08/15/17 16:05 Nasal Cannula 1.0 Lab Results: Results Past 24 Hours Test 08/16/17 06:27 Range/Units White Blood Count 20.18 4.8-10.8 K/uL Red Blood Count 3.50 4.2-5.4 M/uL Hemoglobin 10.8 12.0-16.0 g/dL Hematocrit 32.0 37-47 % Mean Corpuscular Volume 91.4 80-100 fL Mean Corpuscular Hemoglobin 30.9 25-34 pg Mean Corpuscular Hemoglobin Concent 33.8 32-36 g/dl Platelet Count 498 130-400 K/uL Mean Platelet Volume 8.6 7.4-10.4 fL Neutrophils (%) (Auto) 83.4 % Lymphocytes (%) (Auto) 8.4 % Monocytes (%) (Auto) 5.8 % Eosinophils (%) (Auto) 0.5 % Basophils (%) (Auto) 0.2 % Neutrophils # (Auto) 16.81 1.4-6.5 K/uL Lymphocytes # (Auto) 1.70 1.2-3.4 K/uL Monocytes # (Auto) 1.18 0.11-0.59 K/uL Eosinophils # (Auto) 0.10 0-0.5 K/uL Basophils # (Auto) 0.04 0-0.2 K/uL RDW Standard Deviation 45.8 36.4-46.3 fL RDW Coefficient of Variation 13.6 11.5-14.5 % Immature Granulocyte % (Auto) 1.7 % Immature Granulocyte # (Auto) 0.35 0.00-0.02 K/uL Sodium Level 135 136-145 mmol/L Potassium Level 3.5 3.5-5.1 mmol/L Chloride Level 97 98-107 mmol/L Carbon Dioxide Level 32 21-32 mmol/L Anion Gap 6.0 3-11 mmol/L Blood Urea Nitrogen 7 7-18 mg/dl Creatinine 0.66 0.60-1.20 mg/dl Est Creatinine Clear Calc Drug Dose 83.7 ml/min Estimated GFR () 103.7 Estimated GFR (Non- 89.5 BUN/Creatinine Ratio 11.2 10-20 Random Glucose 111 70-99 mg/dl Calcium Level 8.9 8.5-10.1 mg/dl Total Bilirubin 0.4 0.2-1 mg/dl Aspartate Amino Transf (AST/SGOT) 14 15-37 U/L Alanine Aminotransferase (ALT/SGPT) 13 12-78 U/L Alkaline Phosphatase 90 45-117 U/L Total Protein 6.2 6.4-8.2 gm/dl Albumin 2.6 3.4-5.0 gm/dl Globulin 3.6 2.5-4.0 gm/dl Albumin/Globulin Ratio 0.7 0.9-2
[2017-08-16] MEDS: RANITIDINE HCL 150 MG TAB PO SCH (20:52)
[2017-08-16] MEDS: ATORVASTATIN 10 MG TAB PO SCH (20:53)
[2017-08-16] MEDS: MONTELUKAST SOD 10 MG TAB PO SCH (20:53)
[2017-08-16] MEDS: LORAZEPAM 1 MG TAB PO PRN (23:39)
[2017-08-17] VITALS (9 sets, daily range): BP systolic 112–148; BP diastolic 68–84; PULSE 62–107; TEMP 36.6–36.9; O2SAT 91–97
[2017-08-17] MEDS: OXYCODONE HCL IR 5 MG TAB (IMMEDIATE RELEASE) PO PRN ×5 (03:42→21:25)
[2017-08-17] MEDS: IPRATROPIUM BROMIDE NEB SOLN 0.02% 2.5 ML VIAL INH SCH ×6 (04:00→19:45)
[2017-08-17] MEDS: LEVALBUTEROL 1.25MG/0.5ML NEB INH SCH ×6 (04:00→19:45)
[2017-08-17] MEDS: METOPROLOL TARTRATE 50 MG TAB PO SCH ×2 (05:57→17:14)
[2017-08-17] MEDS: PANTOprazole SOD 40 MG TAB PO SCH (08:13)
[2017-08-17] MEDS: BUDESONIDE/FORMOTEROL FUMARATE 160/4.5 60 PUFFS/INHALER INH SCH ×2 (08:13→17:13)
[2017-08-17] MEDS: TIOTROPIUM BROMIDE 28 PUFF/4 GM INH INH SCH ×2 (08:13→17:13)
[2017-08-17] MEDS: GABAPENTIN 300 MG CAP PO SCH ×3 (08:14→21:24)
[2017-08-17] MEDS: MAGNESIUM OXIDE 400 MG TAB PO SCH ×2 (08:14→21:24)
[2017-08-17] MEDS: FUROSEMIDE 20 MG TAB PO SCH (08:14)
[2017-08-17] MEDS: MULTIVITAMIN TAB PO SCH (08:14)
[2017-08-17] MEDS: LOSARTAN POTASSIUM 50 MG TAB PO SCH (08:14)
[2017-08-17] MEDS: ENOXAPARIN 40 MG/0.4 ML SYR SQ SCH (08:15)
[2017-08-17] MEDS: CALCIUM 600MG + VIT D 400 IU TAB PO SCH (08:15)
[2017-08-17] MEDS: NICOTINE 14 MG/24 HR TDSY TD SCH (08:15)
[2017-08-17] MEDS: DOCUSATE SODIUM 100 MG CAP PO SCH (08:15)
--- NOTE | 2017-08-17 10:07 | Surgery Progress Note ---
Subjective Date of Service: Aug 17, 2017. Pt. denies CP or SOB. She continues to ambulate. Tolerating diet. Objective Vitals Date Time Temp Pulse Resp B/P (MAP) Pulse Ox O2 Delivery O2 Flow Rate FiO2 08/17/17 07:52 36.6 62 16 112/68 (83) 97 Nasal Cannula 2.0 08/17/17 07:39 82 18 91 Room Air 08/16/17 23:34 37.0 101 18 126/77 (93) 92 Humidified Oxygen 2.0 08/16/17 19:59 93 14 92 Room Air 08/16/17 19:45 Humidified Oxygen 2.0 08/16/17 15:25 36.6 99 20 114/72 (86) 94 Humidified Oxygen 2.0 08/16/17 11:34 87 14 90 Room Air Physical Exam General: + well developed, + well nourished, No distress CV: + RRR Pulmonary: + pertinent finding (crackles noted over posterior and anterior lung lynn), No accessory muscle use, No respiratory distress Abdomen: + non-distended, + non tender, + soft Extremities: No calf tenderness Neurologic: + alert & oriented x 3 Drains / Tubes chest tube (minimal drainage; air leak noted ) Assessment & Plan 71 year old female s/p LVATS with excision of mass -keep CT in place until air leak stops; maintain on suction while in room but ok to go to water seal when ambulating -continue to encourage use of IS and ambulation OTHER lovenox for DVT prevention
[2017-08-17] MEDS: LEVOFLOXACIN 750 MG TAB PO SCH (11:15)
[2017-08-17] MEDS: ACETAMINOPHEN 325 MG TAB PO PRN (16:22)
--- NOTE | 2017-08-17 20:07 | Progress Note ---
Internal Med Progress Note Date of Service: Aug 17, 2017. Provider Documentation: SUBJECTIVE: Patient seen and examined while sitting on chair. denies shortness of breath or chests pain or pain at site of chest tube of lower left back. no acute complaints OBJECTIVE: Physical Exam: General Appearance: no apparent distress Head: normocephalic, Atraumatic Eyes: normal inspection, EOMI, PERRL Neck: supple, Trachea midline Respiratory/Chest: crackles audible on auscultation of chest of anterior and posterior chest, chest tube Cardiovascular: S1, S2, No murmur Abdomen/GI:Soft, Non tender, Bowel sounds present Extremities: bilateral lower extremity edema Neurologic/Psych:grossly no focal neurological deficits Skin: normal color, warm ASSESSMENT & PLAN: Patient is a 71 yr female with H/O CAD/CABG, HTN, COPD presenting with left sided chest pain. Postoperative day #8 status post robotic resection of a portion of the upper lobe with necrotic lung with and left chest tube Left necrotic lung mass S/P robot-assisted left thoracoscopy with excision of a mass from 08/09/17 Frozen section: Negative for malignant cells, shows infectious process Continue Chest tube per CT surgery CT chest showed 30% left-sided pneumothorax, extensive subcutaneous emphysema over the left hemithorax and small L effusion with partial LLL atelectasis As per recent CT surgery note 08/16/17: Subcutaneous emphysema is better clinically, still has air leak, with plans to discharge patient once chest tube is taken out s/p left necrotic lung mass removed elevated WBC Transitioned from Primaxin IV to Levaquin PO on 08/16/17 as per infectious disease service and to keep this regimen for 21 days Blood/Sputum culture negative Bronchial cultures: rare yeast COPD H/O chronic tobacco use Continue home inhalers counseled for smoking cessation, Nicotine patch CAD/CABG ASA, Plavix was held for thoracoscopic evaluation, will restart after chest tube removed continue Losartan, Metoprolol hold Lasix for now Leg swelling: S/P IV fluids following surgery ECHO Grade I diastolic dysfunction however was technically limited Continue lasix at 20mg AM for now (Takes Hyzaar at home) Daily weight Venous doppler: No DVT encouraged to ambulate Hyponatremia/Hypokalemia: Resolved monitor HTN continue Losartan, Metoprolol takes Hyzaar at home DVT PX Lovenox SQ Code Status FULL CODE DISPOSITION anticipate d/c home when medically stable once cleared by CT surgery follows with Family practice at [place] area would like to follow up with Pulmonology Dr Duncan in [place] Vital Signs: Date Time Temp Pulse Resp B/P (MAP) Pulse Ox O2 Delivery O2 Flow Rate FiO2 08/17/17 19:46 83 18 96 Nasal Cannula 2.0 08/17/17 15:21 102 18 96 Nasal Cannula 2.0 08/17/17 15:20 36.9 107 20 118/78 (91) 94 Humidified Oxygen 2.0 08/17/17 11:57 97 15 96 Nasal Cannula 2.0 08/17/17 11:22 93 Nasal Cannula 2.0 08/17/17 11:20 36.6 90 16 120/76 (91) 93 Nasal Cannula 2.0 08/17/17 07:52 36.6 62 16 112/68 (83) 97 Nasal Cannula 2.0 08/17/17 07:50 Nasal Cannula 2.0 Humidified Oxygen 08/17/17 07:39 82 18 91 Room Air 08/16/17 23:34 37.0 101 18 126/77 (93) 92 Humidified Oxygen 2.0
[2017-08-17] MEDS: MONTELUKAST SOD 10 MG TAB PO SCH (21:24)
[2017-08-17] MEDS: ATORVASTATIN 10 MG TAB PO SCH (21:24)
[2017-08-17] MEDS: RANITIDINE HCL 150 MG TAB PO SCH (21:24)
[2017-08-18] VITALS (10 sets, daily range): BP systolic 125–162; BP diastolic 78–85; PULSE 70–97; TEMP 36.8–37; O2SAT 91–97
[2017-08-18] MEDS: OXYCODONE HCL IR 5 MG TAB (IMMEDIATE RELEASE) PO PRN ×5 (01:30→21:09)
[2017-08-18] MEDS: METOPROLOL TARTRATE 50 MG TAB PO SCH ×2 (06:23→16:19)
[2017-08-18] MEDS: IPRATROPIUM BROMIDE NEB SOLN 0.02% 2.5 ML VIAL INH SCH ×6 (07:17→23:04)
[2017-08-18] MEDS: LEVALBUTEROL 1.25MG/0.5ML NEB INH SCH ×6 (07:17→23:04)
[2017-08-18] MEDS: TIOTROPIUM BROMIDE 28 PUFF/4 GM INH INH SCH ×2 (08:17→16:57)
[2017-08-18] MEDS: BUDESONIDE/FORMOTEROL FUMARATE 160/4.5 60 PUFFS/INHALER INH SCH ×2 (08:18→16:57)
[2017-08-18] MEDS: GABAPENTIN 300 MG CAP PO SCH ×3 (08:19→21:08)
[2017-08-18] MEDS: LOSARTAN POTASSIUM 50 MG TAB PO SCH (08:19)
[2017-08-18] MEDS: DOCUSATE SODIUM 100 MG CAP PO SCH (08:20)
[2017-08-18] MEDS: FUROSEMIDE 20 MG TAB PO SCH (08:20)
[2017-08-18] MEDS: CALCIUM 600MG + VIT D 400 IU TAB PO SCH (08:20)
[2017-08-18] MEDS: MULTIVITAMIN TAB PO SCH (08:21)
[2017-08-18] MEDS: PANTOprazole SOD 40 MG TAB PO SCH (08:21)
[2017-08-18] MEDS: MAGNESIUM OXIDE 400 MG TAB PO SCH ×2 (08:21→21:09)
[2017-08-18] MEDS: NICOTINE 14 MG/24 HR TDSY TD SCH (08:22)
[2017-08-18] MEDS: ENOXAPARIN 40 MG/0.4 ML SYR SQ SCH (08:23)
--- NOTE | 2017-08-18 08:45 | Surgery Progress Note ---
Subjective Date of Service: Aug 18, 2017. Pt. denies SOB. No CP. No N/V--she is tolerating oral intake. Objective Vitals Date Time Temp Pulse Resp B/P (MAP) Pulse Ox O2 Delivery O2 Flow Rate FiO2 08/18/17 08:35 36.8 70 18 162/85 (110) 91 Room Air 08/18/17 08:30 94 Room Air 08/18/17 08:20 Room Air 08/18/17 07:19 71 16 97 Nasal Cannula 2.0 08/18/17 06:25 92 125/81 (96) 08/18/17 03:24 36.8 92 16 130/79 (96) 96 Nasal Cannula 2.0 08/18/17 00:23 Nasal Cannula 2.0 08/17/17 23:20 36.6 101 16 148/84 (105) 95 Nasal Cannula 2.0 Humidified Oxygen 08/17/17 19:46 83 18 96 Nasal Cannula 2.0 08/17/17 17:00 Nasal Cannula 2.0 08/17/17 15:21 102 18 96 Nasal Cannula 2.0 08/17/17 15:20 36.9 107 20 118/78 (91) 94 Humidified Oxygen 2.0 08/17/17 11:57 97 15 96 Nasal Cannula 2.0 08/17/17 11:22 93 Nasal Cannula 2.0 08/17/17 11:20 36.6 90 16 120/76 (91) 93 Nasal Cannula 2.0 Physical Exam General: + well developed, + well nourished, No distress CV: + RRR Pulmonary: + pertinent finding (crackles noted over A/P lung lynn; crepitus noted in neck/back/anterior chest as before ), No accessory muscle use, No respiratory distress Neurologic: + alert & oriented x 3 Drains / Tubes chest tube (no air leak noted this am ) Assessment & Plan 71 year old female s/p LVATS with excision of mass -air leak has now stopped; keep chest tube in another 24-48 hours -will check CXR today -continue to encourage use of IS and ambulation OTHER lovenox for DVT prevention
[2017-08-18] MEDS: LEVOFLOXACIN 750 MG TAB PO SCH (11:02)
--- NOTE | 2017-08-18 15:00 | DIAGNOSTIC IMAGING REPORT ---
CHEST 2 VIEWS ROUTINE CLINICAL HISTORY: pneumothorax COMPARISON STUDY: 08/14/2017 FINDINGS: The cardiac and mediastinal contours remain stable. There are postsurgical changes of a midline sternotomy. The left-sided chest tube is unchanged in position. There is extensive subcutaneous emphysema similar to the preceding study. There is no definite focal pulmonary consolidation however parenchymal evaluation is difficult given the extensive subcutaneous emphysema[ IMPRESSION: Persistent extensive subcutaneous emphysema. No change in the position left-sided chest tube. Electronically signed by: Aiden Roe M.D. 08/18/2017 2:59 PM Dictated Date/Time: 08/18/2017 2:57 PM
[2017-08-18] MEDS: TRAMADOL HCL 50 MG TAB PO PRN (15:13)
--- NOTE | 2017-08-18 18:00 | Progress Note ---
Internal Med Progress Note Date of Service: Aug 18, 2017. Provider Documentation: SUBJECTIVE: Patient seen and examined while sitting on chair. denies shortness of breath or chests pain or pain at site of chest tube of lower left back. no acute complaints OBJECTIVE: Physical Exam: General Appearance: no apparent distress Head: normocephalic, Atraumatic Eyes: normal inspection, EOMI, PERRL Neck: supple, Trachea midline Respiratory/Chest: crackles audible on auscultation of chest of anterior and posterior chest, chest tube Cardiovascular: S1, S2, No murmur Abdomen/GI:Soft, Non tender, Bowel sounds present Extremities: bilateral lower extremity edema Neurologic/Psych:grossly no focal neurological deficits Skin: normal color, warm ASSESSMENT & PLAN: Patient is a 71 yr female with H/O CAD/CABG, HTN, COPD presenting with left sided chest pain. Postoperative day #9 status post robotic resection of a portion of the upper lobe with necrotic lung with and left chest tube Left necrotic lung mass S/P robot-assisted left thoracoscopy with excision of a mass from 08/09/17 Frozen section: Negative for malignant cells, shows infectious process Continue Chest tube per CT surgery CT chest showed 30% left-sided pneumothorax, extensive subcutaneous emphysema over the left hemithorax and small L effusion with partial LLL atelectasis As per CT surgery note 08/16/17: Subcutaneous emphysema is better clinically, still has air leak, with plans to discharge patient once chest tube is taken out As per CT surgery note: 08/18/17: air leak has now stopped; keep chest tube in another 24-48 hours s/p left necrotic lung mass removed elevated WBC Transitioned from Primaxin IV to Levaquin PO on 08/16/17 as per infectious disease service and to keep this regimen for 21 days Blood/Sputum culture negative Bronchial cultures: rare yeast COPD H/O chronic tobacco use Continue home inhalers counseled for smoking cessation, Nicotine patch CAD/CABG ASA, Plavix was held for thoracoscopic evaluation, will restart after chest tube removed continue Losartan, Metoprolol hold Lasix for now Leg swelling: S/P IV fluids following surgery ECHO Grade I diastolic dysfunction however was technically limited Continue lasix at 20mg AM for now (Takes Hyzaar at home) Daily weight Venous doppler: No DVT encouraged to ambulate Hyponatremia/Hypokalemia: Resolved monitor HTN continue Losartan, Metoprolol takes Hyzaar at home DVT PX Lovenox SQ Code Status FULL CODE DISPOSITION anticipate d/c home when medically stable once cleared by CT surgery follows with Family practice at [place] area would like to follow up with Pulmonology Dr Duncan in [place] Vital Signs: Date Time Temp Pulse Resp B/P (MAP) Pulse Ox O2 Delivery O2 Flow Rate FiO2 08/18/17 15:17 36.8 94 18 125/81 (96) 91 Room Air 08/18/17 11:15 88 16 92 Room Air 08/18/17 08:35 36.8 70 18 162/85 (110) 91 Room Air 08/18/17 08:30 94 Room Air 08/18/17 08:20 Room Air 08/18/17 07:19 71 16 97 Nasal Cannula 2.0 08/18/17 06:25 92 125/81 (96) 08/18/17 03:24 36.8 92 16 130/79 (96) 96 Nasal Cannula 2.0 08/18/17 00:23 Nasal Cannula 2.0 08/17/17 23:20 36.6 101 16 148/84 (105) 95 Nasal Cannula 2.0 Humidified Oxygen 08/17/17 19:46 83 18 96 Nasal Cannula 2.0
[2017-08-18] MEDS: RANITIDINE HCL 150 MG TAB PO SCH (21:08)
[2017-08-18] MEDS: ATORVASTATIN 10 MG TAB PO SCH (21:09)
[2017-08-18] MEDS: MONTELUKAST SOD 10 MG TAB PO SCH (21:09)
[2017-08-19] MEDS: IPRATROPIUM BROMIDE NEB SOLN 0.02% 2.5 ML VIAL INH SCH ×3 (03:34→11:20)
[2017-08-19] MEDS: LEVALBUTEROL 1.25MG/0.5ML NEB INH SCH ×3 (03:34→11:20)
[2017-08-19] MEDS: OXYCODONE HCL IR 5 MG TAB (IMMEDIATE RELEASE) PO PRN ×2 (03:44→08:19)
[2017-08-19] MEDS: METOPROLOL TARTRATE 50 MG TAB PO SCH ×2 (06:13→16:43)
[2017-08-19 06:15] VITALS: BP 114/57; PULSE 90
--- NOTE | 2017-08-19 07:02 | Surgery Progress Note ---
Subjective Date of Service: Aug 19, 2017. Pt. notes no CP or SOB. She continues to ambulate. She is tolerating po intake. Objective Vitals Date Time Temp Pulse Resp B/P (MAP) Pulse Ox O2 Delivery O2 Flow Rate FiO2 08/19/17 06:15 90 114/57 (76) 08/18/17 23:30 Room Air 08/18/17 23:04 37.0 97 18 148/78 (101) 91 Room Air 08/18/17 22:15 92 Room Air 08/18/17 19:48 84 16 92 Room Air 08/18/17 15:17 36.8 94 18 125/81 (96) 91 Room Air 08/18/17 11:15 88 16 92 Room Air 08/18/17 08:35 36.8 70 18 162/85 (110) 91 Room Air 08/18/17 08:30 94 Room Air 08/18/17 08:20 Room Air 08/18/17 07:19 71 16 97 Nasal Cannula 2.0 Physical Exam General: + well developed, + well nourished, No distress CV: + RRR Pulmonary: + lungs clear, + accessory muscle use, + respiratory distress Extremities: No calf tenderness Neurologic: + alert & oriented x 3 Additional Notes: Sub-q air palpated in neck and to a lesser extent posterior and anterior chest [facility] CXR yesterday continues to show large amount of sub-q air; no pneumothorax noted Drains / Tubes chest tube (left sided; minimal drainage; no air leak ) Assessment & Plan 71 year old female s/p LVATS with excision of mass -operative findings concerning for lung abscess -ID input noted: -21 days of levaquin recommended -air leak in CT noted to have stopped on 08/17/17; -will consider removing in next 24-48 hours -continue use of IS and ambulation OTHER lovenox for DVT prevention
[2017-08-19 07:26] VITALS: BP 121/80; PULSE 98; TEMP 37; O2SAT 94
[2017-08-19 07:28] LABS: BASO % 0.3 %; BASO ABS # 0.04 K/uL (0-0.2); COMPLETE YES; HEMATOCRIT 32.2 % (37-47); IG% 0.7 %; LYMPH % 13.8 %; LYMPH ABS # 1.85 K/uL (1.2-3.4); MEAN CELL VOLUME 92.5 fL (80-100); MEAN CORPUSCULAR HEMOGLOBIN 30.5 pg (25-34); MEAN CORPUSCULAR HGB CONC 32.9 g/dl (32-36); MEAN PLATELET VOLUME 8.4 fL (7.4-10.4); MONO % 6.1 %; NEUT % 79.1 %; PLATELET COUNT 532 K/uL (130-400); RED BLOOD COUNT 3.48 M/uL (4.2-5.4); WHITE BLOOD COUNT 13.45 K/uL (4.8-10.8)
[2017-08-19 07:34] VITALS: PULSE 82; O2SAT 93
[2017-08-19 07:59] LABS: BUN/CREATININE RATIO 5.5 (10-20); CALCIUM 8.9 mg/dl (8.5-10.1); CREATININE 0.78 mg/dl (0.60-1.20); POTASSIUM 3.4 mmol/L (3.5-5.1)
[2017-08-19 08:02] LABS: ALB/GLOB RATIO 0.7 (0.9-2)
[2017-08-19] MEDS: BUDESONIDE/FORMOTEROL FUMARATE 160/4.5 60 PUFFS/INHALER INH SCH ×2 (08:14→16:43)
[2017-08-19] MEDS: TIOTROPIUM BROMIDE 28 PUFF/4 GM INH INH SCH ×2 (08:15→16:45)
[2017-08-19] MEDS: CALCIUM 600MG + VIT D 400 IU TAB PO SCH (08:15)
[2017-08-19] MEDS: ENOXAPARIN 40 MG/0.4 ML SYR SQ SCH (08:15)
[2017-08-19] MEDS: DOCUSATE SODIUM 100 MG CAP PO SCH (08:16)
[2017-08-19] MEDS: PANTOprazole SOD 40 MG TAB PO SCH (08:16)
[2017-08-19] MEDS: MAGNESIUM OXIDE 400 MG TAB PO SCH ×2 (08:16→20:28)
[2017-08-19] MEDS: GABAPENTIN 300 MG CAP PO SCH ×3 (08:16→20:30)
[2017-08-19] MEDS: LOSARTAN POTASSIUM 50 MG TAB PO SCH (08:16)
[2017-08-19] MEDS: FUROSEMIDE 20 MG TAB PO SCH (08:16)
[2017-08-19] MEDS: MULTIVITAMIN TAB PO SCH (08:17)
[2017-08-19] MEDS: NICOTINE 14 MG/24 HR TDSY TD SCH (08:17)
[2017-08-19] MEDS: LEVOFLOXACIN 750 MG TAB PO SCH (08:17)
[2017-08-19] MEDS: TRAMADOL HCL 50 MG TAB PO PRN (10:55)
[2017-08-19 11:20] VITALS: PULSE 89; O2SAT 90
[2017-08-19] MEDS ORDERED: POTASSIUM CHLORIDE 20 MEQ TABCR PO ONE (12:30)
[2017-08-19] MEDS: OXYCODONE/ACETAMINOPHEN 5-325 TAB PO PRN ×3 (12:33→20:27)
[2017-08-19 15:31] VITALS: BP 122/74; PULSE 100; TEMP 36.8; O2SAT 93
--- NOTE | 2017-08-19 17:16 | Progress Note ---
Internal Med Progress Note Date of Service: Aug 19, 2017. Provider Documentation: SUBJECTIVE: Patient seen and examined while sitting on chair. denies shortness of breath or chests pain or pain at site of chest tube of lower left back. reviewed opioid medications with patient in regards to chronic back pain not related to chest tube OBJECTIVE: Physical Exam: General Appearance: no apparent distress Head: normocephalic, Atraumatic Eyes: normal inspection, EOMI, PERRL Neck: supple, Trachea midline Respiratory/Chest: crackles are still audible on auscultation of chest of anterior and posterior chest, chest tube Cardiovascular: S1, S2, No murmur Abdomen/GI:Soft, Non tender, Bowel sounds present Extremities: bilateral lower extremity edema Neurologic/Psych:grossly no focal neurological deficits Skin: normal color, warm ASSESSMENT & PLAN: Patient is a 71 yr female with H/O CAD/CABG, HTN, COPD presenting with left sided chest pain. Postoperative day #9 status post robotic resection of a portion of the upper lobe with necrotic lung with and left chest tube Left necrotic lung mass S/P robot-assisted left thoracoscopy with excision of a mass from 08/09/17 Frozen section: Negative for malignant cells, shows infectious process Continue Chest tube per CT surgery CT chest showed 30% left-sided pneumothorax, extensive subcutaneous emphysema over the left hemithorax and small L effusion with partial LLL atelectasis As per CT surgery note 08/16/17: Subcutaneous emphysema is better clinically, still has air leak, with plans to discharge patient once chest tube is taken out As per CT surgery note: 08/18/17: air leak has now stopped; awaiting CT surgery to take out chest tube s/p left necrotic lung mass removed elevated WBC Transitioned from Primaxin IV to Levaquin PO on 08/16/17 as per infectious disease service and to keep this regimen for 21 days Blood/Sputum culture negative Bronchial cultures: rare yeast COPD H/O chronic tobacco use Continue home inhalers counseled for smoking cessation, Nicotine patch CAD/CABG ASA, Plavix was held for thoracoscopic evaluation, will restart after chest tube removed continue Losartan, Metoprolol hold Lasix for now Leg swelling: S/P IV fluids following surgery ECHO Grade I diastolic dysfunction however was technically limited Continue lasix at 20mg AM for now (Takes Hyzaar at home) Daily weight Venous doppler: No DVT encouraged to ambulate Hyponatremia/Hypokalemia: Resolved monitor HTN continue Losartan, Metoprolol takes Hyzaar at home Pain medications: have discontinued morphine and intermediate acting narcotics and switched to percocet prn DVT PX Lovenox SQ Code Status FULL CODE DISPOSITION anticipate d/c home when medically stable once cleared by CT surgery follows with Family practice at [place] area would like to follow up with Pulmonology Dr Duncan in [place] Vital Signs: Date Time Temp Pulse Resp B/P (MAP) Pulse Ox O2 Delivery O2 Flow Rate FiO2 08/19/17 15:31 36.8 100 18 122/74 (90) 93 Room Air 08/19/17 11:20 89 16 90 Room Air 08/19/17 08:00 Room Air 08/19/17 07:34 82 16 93 Room Air 08/19/17 07:26 37.0 98 16 121/80 (94) 94 Room Air 08/19/17 06:15 90 114/57 (76) 08/18/17 23:30 Room Air 08/18/17 23:04 37.0 97 18 148/78 (101) 91 Room Air 08/18/17 22:15 92 Room Air 08/18/17 19:48 84 16 92 Room Air Lab Results: Results Past 24 Hours Test 08/19/17 06:50 Range/Units White Blood Count 13.45 4.8-10.8 K/uL Red Blood Count 3.48 4.2-5.4 M/uL Hemoglobin 10.6 12.0-16.0 g/dL Hematocrit 32.2 37-47 % Mean Corpuscular Volume 92.5 80-100 fL Mean Corpuscular Hemoglobin 30.5 25-34 pg Mean Corpuscular Hemoglobin Concent 32.9 32-36 g/dl Platelet Count 532 130-400 K/uL Mean Platelet Volume 8.4 7.4-10.4 fL Neutrophils (%) (Auto) 79.1 % Lymphocytes (%) (Auto) 13.8 % Monocytes (%) (Auto) 6.1 % Eosinophils (%) (Auto) 0.0 % Basophils (%) (Auto) 0.3 % Neutrophils # (Auto) 10.64 1.4-6.5 K/uL Lymphocytes # (Auto) 1.85 1.2-3.4 K/uL Monocytes # (Auto) 0.82 0.11-0.59 K/uL Eosinophils # (Auto) 0.00 0-0.5 K/uL Basophils # (Auto) 0.04 0-0.2 K/uL RDW Standard Deviation 46.8 36.4-46.3 fL RDW Coefficient of Variation 13.9 11.5-14.5 % Immature Granulocyte % (Auto) 0.7 % Immature Granulocyte # (Auto) 0.10 0.00-0.02 K/uL Sodium Level 140 136-145 mmol/L Potassium Level 3.4 3.5-5.1 mmol/L Chloride Level 100 98-107 mmol/L Carbon Dioxide Level 28 21-32 mmol/L Anion Gap 12.0 3-11 mmol/L Blood Urea Nitrogen 4 7-18 mg/dl Creatinine 0.78 0.60-1.20 mg/dl Est Creatinine Clear Calc Drug Dose 70.8 ml/min Estimated GFR () 89.3 Estimated GFR (Non- 77.0 BUN/Creatinine Ratio 5.5 10-20 Random Glucose 104 70-99 mg/dl Calcium Level 8.9 8.5-10.1 mg/dl Total Bilirubin 0.3 0.2-1 mg/dl Aspartate Amino Transf (AST/SGOT) 15 15-37 U/L Alanine Aminotransferase (ALT/SGPT) 13 12-78 U/L Alkaline Phosphatase 87 45-117 U/L Total Protein 6.2 6.4-8.2 gm/dl Albumin 2.6 3.4-5.0 gm/dl Globulin 3.6 2.5-4.0 gm/dl Albumin/Globulin Ratio 0.7 0.9-2
[2017-08-19] MEDS: ATORVASTATIN 10 MG TAB PO SCH (20:28)
[2017-08-19] MEDS: MONTELUKAST SOD 10 MG TAB PO SCH (20:30)
[2017-08-19] MEDS: RANITIDINE HCL 150 MG TAB PO SCH (20:30)
[2017-08-19 23:00] VITALS: BP 138/81; PULSE 88; TEMP 36.7; O2SAT 91
[2017-08-20] MEDS: OXYCODONE/ACETAMINOPHEN 5-325 TAB PO PRN ×5 (00:37→16:31)
[2017-08-20] MEDS: METOPROLOL TARTRATE 50 MG TAB PO SCH ×2 (05:27→15:52)
[2017-08-20 05:29] VITALS: BP 143/82; PULSE 94; O2SAT 90
[2017-08-20 07:32] VITALS: BP 118/63; PULSE 66; TEMP 36.9; O2SAT 92
[2017-08-20] MEDS ORDERED: HYDROCHLOROTHIAZIDE 25 MG TAB PO SCH (09:00)
[2017-08-20] MEDS: BUDESONIDE/FORMOTEROL FUMARATE 160/4.5 60 PUFFS/INHALER INH SCH ×2 (09:09→16:31)
[2017-08-20] MEDS: TIOTROPIUM BROMIDE 28 PUFF/4 GM INH INH SCH ×2 (09:09→16:31)
[2017-08-20] MEDS: LORAZEPAM 1 MG TAB PO PRN (09:10)
[2017-08-20] MEDS: MAGNESIUM OXIDE 400 MG TAB PO SCH (09:10)
[2017-08-20] MEDS: PANTOprazole SOD 40 MG TAB PO SCH (09:18)
[2017-08-20] MEDS: MULTIVITAMIN TAB PO SCH (09:18)
[2017-08-20] MEDS: GABAPENTIN 300 MG CAP PO SCH ×2 (09:18→12:43)
[2017-08-20] MEDS: CALCIUM 600MG + VIT D 400 IU TAB PO SCH (09:19)
[2017-08-20] MEDS: DOCUSATE SODIUM 100 MG CAP PO SCH (09:19)
[2017-08-20] MEDS: LOSARTAN POTASSIUM 50 MG TAB PO SCH (09:19)
[2017-08-20] MEDS: ENOXAPARIN 40 MG/0.4 ML SYR SQ SCH (09:20)
[2017-08-20] MEDS: NICOTINE 14 MG/24 HR TDSY TD SCH (09:20)
--- NOTE | 2017-08-20 09:38 | DIAGNOSTIC IMAGING REPORT ---
CHEST ONE VIEW PORTABLE CLINICAL HISTORY: chest tube removal dyspnea COMPARISON STUDY: 08/18/2017 FINDINGS: Interval removal of the patient's left-sided chest tube. Subcutaneous emphysema persists but is slightly improved. Diffuse parenchymal change bilaterally essentially unchanged. IMPRESSION: No significant pneumothorax status post left-sided chest tube removal The above report was generated using voice recognition software. It may contain grammatical, syntax or spelling errors. Electronically signed by: Brandon Unger M.D. 08/20/2017 9:37 AM Dictated Date/Time: 08/20/2017 9:36 AM
--- NOTE | 2017-08-20 10:25 | SURGERY PROGRESS NOTE ---
DATE: 08/20/2017 SUBJECTIVE: Mr. Guardado was seen today on 08/20/2017. Her subcutaneous emphysema has improved clinically. She has no air leak and has not had one for about 2 days. I removed her chest tube. Her x-ray after I removed it showed no evidence of pneumothorax or infiltrate. We see no yeast AFB or growth from her abscess or the bronchial washings grew out a Yanet species. The patient looks very good. She is on room air with 92% saturations and vital signs are stable. Her incisions are clean. I removed the sutures from her chest tube site as well as the chest tube that was placed earlier. All of her incisions are clean. All in all, I think she looks quite good. From our standpoint, she may be discharged when the primary service agrees. She does have 1+ edema of her pedal area with some mild erythema and pruritus, which is unusual. I do not see a rash per se, although she has mild erythema. She has good pulses. This was not a vascular issue. She also complains of pruritus only in her skin. The patient does have a remote history of having had a reaction to sulfa many, many years ago. She has been started back on hydrochlorothiazide, I am not sure if this is related. At any rate our standpoint, she has done very well.
[2017-08-20] MEDS ORDERED: TRIAMCINOLONE ACET 0.025% CR 15 GM TUBE EXT ONE (11:00)
[2017-08-20] MEDS: LEVOFLOXACIN 750 MG TAB PO SCH (12:43)
--- NOTE | 2017-08-20 15:55 | Progress Note ---
Internal Med Progress Note Date of Service: Aug 20, 2017. Provider Documentation: SUBJECTIVE: s/p chest tube removal today by Ct surgery. patient is comfortable. breathing on room air. no shortness of breath. no pain. patient reports feet itch and has some mild redness and erythema of posterior heel bilaterally OBJECTIVE: Physical Exam: General Appearance: no apparent distress Head: normocephalic, atraumatic Eyes: normal inspection, EOMI, PERRL Neck: supple, Trachea midline Respiratory/Chest: good air entry, minimal crackles Cardiovascular: S1, S2, No murmur Abdomen/GI:Soft, Non tender, Bowel sounds present Extremities: bilateral lower extremity edema Neurologic/Psych:grossly no focal neurological deficits Skin: so warm of posterior heel bilaterally and mild swelling and erythema ASSESSMENT & PLAN: Patient is a 71 yr female with H/O CAD/CABG, HTN, COPD presenting with left sided chest pain. status post robotic resection of a portion of the upper lobe with necrotic lung with and left chest tube Left necrotic lung mass S/P robot-assisted left thoracoscopy with excision of a mass from 08/09/17 Frozen section: Negative for malignant cells, shows infectious process CT chest showed 30% left-sided pneumothorax, extensive subcutaneous emphysema over the left hemithorax and small L effusion with partial LLL atelectasis s/p chest tube removal on 08/20/2017 s/p left necrotic lung mass removed elevated WBC Transitioned from Primaxin IV to Levaquin PO on 08/16/17 as per infectious disease service and to keep this regimen for 21 days Blood/Sputum culture negative Bronchial cultures: rare yeast COPD H/O chronic tobacco use Continue home inhalers counseled for smoking cessation, Nicotine patch CAD/CABG ASA, Plavix to be restarted after chest tube removed continue Losartan, Metoprolol ECHO Grade I diastolic dysfunction however was technically limited hold Lasix for now because of hypokalemia, and because patient does not use Lasix for CHF Leg swelling: S/P IV fluids following surgery swelling has decreased after Lasix for leg edema, was then switched to HCTZ but may have some skin reaction of lower extremities versus skin irritation from being in tight stockings for reducing leg swelling HTN continue Losartan Pain medications: have been taking perocet as home for chronic back pain DVT PX Lovenox SQ as inpatient Code Status FULL CODE DISPOSITION d/c home follows with Family practice at [place] area with a nurse practicer, the physician listed on our hospital records at [facility] is Dr. Kayla Villafana [phone] if patient prefers a [facility] associated physican she can call [phone] patient to also follow up with Dr. Harper of CT surgery who was involved with her procedure who is associated with [facility] group can also follow up with Pulmonology Dr Duncan of [facility] group in [facility] appointments can be made by calling [phone] Patient should seek immediate medical attention after discharge if she has severe chest pain, shortness of breath, coughing up blood, high fever, vomiting Vital Signs: Date Time Temp Pulse Resp B/P (MAP) Pulse Ox O2 Delivery O2 Flow Rate FiO2 08/20/17 10:27 Room Air 08/20/17 07:32 36.9 66 17 118/63 (81) 92 Room Air 08/20/17 05:29 94 143/82 (102) 90 Room Air 08/19/17 23:45 Room Air 08/19/17 23:00 36.7 88 19 138/81 (100) 91 Room Air
[2017-08-20 16:10] VITALS: BP 118/63; PULSE 66; TEMP 36.9; O2SAT 92
[2017-08-20] MEDS ORDERED: TRIAMCINOLONE ACET 0.025% EXT (16:15)
[2017-08-20] MEDS ORDERED: LVQ750 PO (16:15)
--- NOTE | 2017-08-20 16:21 | Discharge Instructions ---
Discharge Instructions Date of Service Aug 20, 2017. Admission Reason for Admission: Pneumothorax, Chest Tube, L Lung Absess Discharge Discharge Diagnosis / Problem: lung necrotic mass, lung infection, pneumonectomy, chest tube, HTN Discharge Goals Goal(s): Improve function Activity Recommendations Activity Limitations: per Instructions/Follow-up section Lifting Limitations: until after follow-up appointment Exercise/Sports Limitations: until after follow-up appointment . Instructions / Follow-Up Instructions / Follow-Up DISPOSITION d/c home follows with Family practice at [facility] with a nurse practicer, the physician listed on our hospital records at [facility] is Dr. Kayla Villafana [phone] if patient prefers a [employer] associated physican she can call [phone] patient to also follow up with Dr. Harper of CT surgery who was involved with her procedure who is associated with [facility] group can also follow up with Pulmonology Dr Duncan of [facility] group in [facility] appointments can be made by calling [phone] Patient should seek immediate medical attention after discharge if she has severe chest pain, shortness of breath, coughing up blood, high fever, vomiting Current Hospital Diet Patient's current hospital diet: AHA Diet (Heart Healthy) Discharge Diet Recommended Diet: AHA Diet (Heart Healthy) Procedures Procedures Performed: Left Video Assisted Thoracoscopy Robot Asisst with Bronchoscopy Pending Studies Studies pending at discharge: no Medical Emergencies . Who to Call and When: Medical Emergencies: If at any time you feel your situation is an emergency, please call [phone] immediately. . Non-Emergent Contact Non-Emergency issues call your: Primary Care Provider, Surgeon . . "Provider Documentation" section prepared by Saulo Shea. . VTE Core Measure Inpt VTE Proph given/why not?: SCD's
--- NOTE | 2017-08-20 16:26 | Discharge Summary ---
Discharge Summary Date of Service Aug 20, 2017. Discharge Summary Admission Date: Aug 06, 2017 at 18:59 Discharge Date: Aug 20, 2017 Discharge Disposition: Home Principal Diagnosis: lung necrotic mass, lung infection, pneumonectomy, chest tube, HTN Procedures: Left Video Assisted Thoracoscopy Robot Asisst with Bronchoscopy Consultations: pulmonary, CT surgery Medication Reconciliation New Medications: Levofloxacin (Levofloxacin) 750 Mg Tab 750 MG PO DAILY@11 for 17 Days, #17 TAB [Triamcinolone Acet 0.025%] () CR 1 APPLN EXT BID for 5 Days, #1 TUBE 1 Refill Continued Medications: Albuterol (Proair Hfa) Aers 2 PUFFS INH Q4 PRN for SOB/Wheezing Alprazolam (Alprazolam) 0.5 Mg Tab 0.5 MG PO HS PRN for Anxiety Amlodipine (Norvasc) 2.5 Mg Tab 2.5 MG PO QAM, TAB Aspirin (Aspir-81) 81 Mg Tab 81 MG PO HS Atorvastatin (Lipitor) 10 Mg Tab 10 MG PO HS, TAB Budesonide/Formoterol Fumarate (Symbicort 160/4.5 Inhaler ) Aero 2 PUFFS INH BID, INHALER Carisoprodol (Soma) 350 Mg Tab 350 MG PO TID PRN for Muscle Spasms, TAB Cholecalciferol (Vitamin D3) 2,000 Unit Tab 1 TAB PO DAILY for 30 Days, #30 TAB 5 Refills Clopidogrel (Plavix) 75 Mg Tab 75 MG PO QAM, TAB Docusate Sodium (Stool Softener) 100 Mg Cap 200 MG PO DAILY Esomeprazole Magnesium (Nexium) 40 Mg Capcr 40 MG PO DAILY, CAP Gabapentin (Gabapentin) 300 Mg Cap 1 CAP PO QID for 30 Days, #120 CAP 5 Refills Ipratropium [place] (Ipratropium [place]) 0.5 Mg/2.5 Ml Nebu 1 VIAL NEB QID for 30 Days, #300 ML 5 Refills Losartan Potassium (Cozaar) 100 Mg Tab 100 MG PO QAM, TAB Magnesium Oxide (Mag-Ox) 400 Mg Tab 400 MG PO BID, TAB Metoprolol Tartrate (Lopressor) (Lopressor) 50 Mg Tab 50 MG PO BID, TAB Montelukast Sodium (Singulair) 10 Mg Tab 10 MG PO HS, TAB Multivitamin (Multivitamin) Tab 1 TAB PO QAM, TAB Oxycodone HCl (Oxycodone HCl) 5 Mg Tab 5 MG PO Q4H PRN for moderate pain (pain scale 4-6), #90 TAB Ranitidine (Zantac) 150 Mg Tab 150 MG PO HS, TAB Tiotropium [place] (Spiriva Respimat) 1.25 Mcg/Act Aer 2 PUFF INH, INHALER Referrals At Discharge Follow up Referrals: [facility] Referral - Please Call For Appointment with Syed Duncan MD Admission Information HPI (per Admitting provider): 71 year old female with history of CAD/CABG, HTN, COPD presenting with left sided chest pain. Patient was at her usual state of health until a few weeks ago when she started to have dry cough. She was then prescribed by her PCP a course of Prednisone and Azithromycin. As per patient, her symptoms have improved since then but then had increasing cough the past few days. Last night, the patient was coughing and suddenly had left sided chest pain - felt a like a pulled muscle so she applied Aspercream with some improvement. This morning the pain and cough persisted prompting consult at the [facility]. She was found to have by CXR a left sided pneumothorax with left loculated effusion. A chest tube was placed and patient requested transfer to [facility]. Patient received with stable VS, more than 90% on 2 liters nasal cannula. Repeat CXR showed : Left-sided chest tube placement with the tube possibly outside of the chest wall cavity in the left. Kink of the tube at its superior margin. Considerable subcutaneous emphysematous change. Parenchymal infiltrate left base. This tube should be repositioned. On exam, patient seen resting in bed, not in respiratory distress, no accessory muscles, speaks in sentences with no effort. Main symptom is pain on the chest tube insertion site. Denies other symptoms Physical Exam (per Admitting): General Appearance: WD/WN, no apparent distress Head: normocephalic, atraumatic Eyes: normal inspection, EOMI, sclerae normal ENT: normal ENT inspection, hearing grossly normal, pharynx normal Neck: supple, no adenopathy, thyroid normal, no JVD, trachea midline Respiratory/Chest: + pertinent finding ((+) chest tube inserted on the left chest wall, no signs of active bleeding; (+) mild wheeze and rales bilateral bases right >left) Cardiovascular: regular rate, rhythm, no edema, no JVD, no murmur Abdomen/GI: normal bowel sounds, non tender, soft, no organomegaly Back: normal inspection, no CVA tenderness Extremities/Musculoskelatal: normal inspection, no calf tenderness, normal capillary refill, no pedal edema 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 status post robotic resection of a portion of the upper lobe with necrotic lung with and left chest tube Left necrotic lung mass S/P robot-assisted left thoracoscopy with excision of a mass from 08/09/17 Frozen section: Negative for malignant cells, shows infectious process CT chest showed 30% left-sided pneumothorax, extensive subcutaneous emphysema over the left hemithorax and small L effusion with partial LLL atelectasis s/p chest tube removal on 08/20/2017 s/p left necrotic lung mass removed elevated WBC Transitioned from Primaxin IV to Levaquin PO on 08/16/17 as per infectious disease service and to keep this regimen for 21 days Blood/Sputum culture negative Bronchial cultures: rare yeast COPD H/O chronic tobacco use Continue home inhalers counseled for smoking cessation, Nicotine patch CAD/CABG ASA, Plavix to be restarted after chest tube removed continue Losartan, Metoprolol ECHO Grade I diastolic dysfunction however was technically limited hold Lasix for now because of hypokalemia, and because patient does not use Lasix for CHF Leg swelling: S/P IV fluids following surgery swelling has decreased after Lasix for leg edema, was then switched to HCTZ but may have some skin reaction of lower extremities versus skin irritation from being in tight stockings for reducing leg swelling HTN continue Losartan Pain medications: have been taking perocet as home for chronic back pain DVT PX Lovenox SQ as inpatient Code Status FULL CODE DISPOSITION d/c home follows with Family practice at [facility] with a nurse practicer, the physician listed on our hospital records at [facility] is Dr. Kayla Villafana [phone] if patient prefers a [employer] associated physican she can call [phone] patient to also follow up with Dr. Harper of CT surgery who was involved with her procedure who is associated with [facility] can also follow up with Pulmonology Dr Duncan of [facility] in [facility] appointments can be made by calling [phone] Patient should seek immediate medical attention after discharge if she has severe chest pain, shortness of breath, coughing up blood, high fever, vomiting Total time spent on discharge = This includes examination of the patient, discharge planning, medication reconciliation, and communication with other providers. Discharge Instructions DISPOSITION d/c home follows with Family practice at [facility] with a nurse practicer, the physician listed on our hospital records at [facility] is Dr. Kayla Villafana [phone] if patient prefers a [employer] associated physican she can call [phone] patient to also follow up with Dr. Harper of CT surgery who was involved with her procedure who is associated with [facility] can also follow up with Pulmonology Dr Duncan of [facility] in [facility] appointments can be made by calling [phone] Patient should seek immediate medical attention after discharge if she has severe chest pain, shortness of breath, coughing up blood, high fever, vomiting
[2017-08-20] MEDS ORDERED: TRIAMCINOLONE ACET 0.025% CR 15 GM TUBE EXT SCH (21:00)
== END 2017-08-20 17:42 | disposition home or self-care (01) | DRG 167 ==
LOC: C.2T 18:59 → ENRESERV 08-10 14:14 → C.MSN 08-10 15:13
PROVIDERS: ADMIT Hospitalist; ATTEND Hospitalist
PROC: 0W9830Z Drainage of Chest Wall with Drainage Device, Percutaneous Approach (ICD-10-PCS; 2017-08-07)
PROC: 0B9G8ZX Drainage of Left Upper Lung Lobe, Via Natural or Artificial Opening Endoscopic, Diagnostic (ICD-10-PCS; principal; 2017-08-09 12:30)
PROC: 0BBG4ZX Excision of Left Upper Lung Lobe, Percutaneous Endoscopic Approach, Diagnostic (ICD-10-PCS; principal; 2017-08-09 12:30)
PROC: 8E0W4CZ Robotic Assisted Procedure of Trunk Region, Percutaneous Endoscopic Approach (ICD-10-PCS; principal; 2017-08-09 12:30)
DX: J85.2 Abscess of lung without pneumonia (principal); J93.12 Secondary spontaneous pneumothorax; J44.0 Chronic obstructive pulmonary disease with (acute) lower respiratory infection; J90 Pleural effusion, not elsewhere classified; E87.1 Hypo-osmolality and hyponatremia; J85.0 Gangrene and necrosis of lung; E87.6 Hypokalemia; M79.89 Other specified soft tissue disorders; I11.9 Hypertensive heart disease without heart failure; I25.10 Atherosclerotic heart disease of native coronary artery without angina pectoris; E78.00 Pure hypercholesterolemia, unspecified; K21.9 Gastro-esophageal reflux disease without esophagitis; F17.210 Nicotine dependence, cigarettes, uncomplicated; Z95.1 Presence of aortocoronary bypass graft; Z79.02 Long term (current) use of antithrombotics/antiplatelets; Z79.82 Long term (current) use of aspirin; Z79.899 Other long term (current) drug therapy; Z88.0 Allergy status to penicillin; Z88.1 Allergy status to other antibiotic agents; Z88.2 Allergy status to sulfonamides; Z88.5 Allergy status to narcotic agent; Z82.5 Family history of asthma and other chronic lower respiratory diseases; Z82.49 Family history of ischemic heart disease and other diseases of the circulatory system; Z83.3 Family history of diabetes mellitus

== ENCOUNTER → 2017-08-24 | Outpatient (CLI) | payer OTHER ==
[~2017-08-24] MED LIST changes: -ADVIN25/60 INH; +ATRINS NEB; -ATV1 PO; -BUPR100T5 PO; -CALCTAB5 PO; +CHOL20007 PO; -GABA-113 PO; +GABA1CAP4 PO; -HYDR-3983 PO; +LVQ750 PO; +SYMIN160 INH; +TIOT1AER2 INH; -TRAM-10 PO; +TRIAMCINOLONE ACET 0.025% EXT
--- NOTE | 2017-08-24 13:20 | DIAGNOSTIC IMAGING REPORT ---
CHEST 2 VIEWS ROUTINE CLINICAL HISTORY: J85.2 Abscess of lungs.p WEDGE RESECTION LEFT UPPER LOBE ABNORMA COMPARISON STUDY: 08/20/2017 FINDINGS: The cardiac and mediastinal contours remain stable. There are postsurgical changes of a midline sternotomy. There is extensive subcutaneous emphysema. No pneumothorax is visualized. Evaluation the lung parenchyma is difficult due to the subcutaneous changes emphysema. IMPRESSION: No significant change from the prior study. Electronically signed by: Aiden Roe M.D. 08/24/2017 1:18 PM Dictated Date/Time: 08/24/2017 1:17 PM
== END | disposition home or self-care (01) ==
LOC: C.RAD 12:57
PROVIDERS: ATTEND Surgery
DX: J85.2 Abscess of lung without pneumonia (principal); Z90.2 Acquired absence of lung [part of]

== ENCOUNTER → 2017-09-25 | Outpatient (CLI) | payer OTHER ==
[~2017-09-25] MED LIST changes: +ATOR10TA82 PO; -ATOR10TA88 PO
--- NOTE | 2017-09-25 10:43 | DIAGNOSTIC IMAGING REPORT ---
CT SCAN OF THE CHEST WITHOUT IV CONTRAST CLINICAL HISTORY: Pulmonary abscess status post wedge resection. COMPARISON STUDY: Chest CT dated 08/06/2017. Chest x-ray dated 08/24/2017. TECHNIQUE: CT scan of the thorax was performed from the thoracic inlet to the upper abdomen. Images are reviewed in the axial, sagittal, and coronal planes. IV contrast was not administered for this examination as per the referring clinician. A dose lowering technique was utilized adhering to the principles of ALARA. CT DOSE: 555.24 mGycm FINDINGS: Thyroid: Imaged portions of the thyroid gland appear enlarged and heterogeneous. A coarse calcification and subcentimeter low-attenuation nodule are suggested in the right lobe. Thoracic aorta: There is atherosclerotic calcification of the thoracic aorta, which is normal in caliber and demonstrates standard 3-vessel arch anatomy. Heart: The patient is status post midline sternotomy. The heart is normal in size and without pericardial effusion. The coronary arteries are densely calcified. Lungs and pleural spaces: Emphysema is noted. There are postoperative changes from lingular resection with associated scarring/atelectasis. Foci of tree-in-bud nodularity with faint associated groundglass change are present throughout both lungs, most confluence in the right upper lobe seen on image #80. No fluid collection is suggested. No pleural effusion is identified. Foci of linear atelectasis versus scarring are present throughout both lungs. The trachea and central airways are clear. No pneumothorax is seen. Mediastinum: A mildly enlarged AP window node on image #104 measures 1.2 cm in short axis. Additional subcentimeter mediastinal nodes are identified. Lesly: Not well assessed without IV contrast. Axillae: There is no axillary lymphadenopathy. Upper abdomen: There is a tiny hiatal hernia. Partially visualized upper abdominal viscera is otherwise within normal limits. Skeletal structures: The skeletal structures are osteopenic. Degenerative change is seen throughout the thoracic spine. No lytic or blastic bony lesions are seen. Soft tissues: Subcutaneous gas is present along the left chest wall and in the left breast. This is likely related to recent surgery. IMPRESSION: 1. Postoperative change is identified in the lingula. No fluid collection is seen. 2. Emphysema. 3. There are numerous foci of tree-in-bud nodularity with faint associated groundglass change. This is nonspecific and likely represents an infectious/inflammatory pneumonitis. Clinical correlation will be required. 4. Subcutaneous emphysema is present along the left chest wall, likely related to recent surgery. 5. A mildly enlarged AP window node is nonspecific and likely on a reactive basis. 6. Additional findings as above. Electronically signed by: Slade Aranda M.D. 09/25/2017 10:42 AM Dictated Date/Time: 09/25/2017 10:34 AM
== END | disposition home or self-care (01) ==
LOC: C.CTS 10:06
PROVIDERS: ATTEND Surgery
DX: J85.2 Abscess of lung without pneumonia (principal); Z90.2 Acquired absence of lung [part of]; J43.9 Emphysema, unspecified; R91.8 Other nonspecific abnormal finding of lung field

== ENCOUNTER → 2018-01-11 | Outpatient (CLI) | payer OTHER ==
[~2018-01-11] MED LIST changes: +GABA-1219 PO; -GABA1CAP4 PO; +RANI150T85 PO; -ZNTT/150 PO
--- NOTE | 2018-01-11 12:27 | DIAGNOSTIC IMAGING REPORT ---
(CHEST) THORAX WITHOUT CT DOSE: 488.94 mGy.cm CLINICAL HISTORY: 72 years-old Female with J85.2 Abscess of lung. Follow-up study in a patient with history of prior pulmonary abscess and wedge resection TECHNIQUE: Multiaxial CT images of the chest were performed without contrast. A dose lowering technique was utilized adhering to the principles of ALARA. COMPARISON: CT chest 09/25/2017 FINDINGS: Thyroid is heterogeneous with the right lobe larger than the left. 4 mm calcification is also noted within the right thyroid lobe. Indeterminate 10 x 11 mm lymph node of the AP window appears slightly decreased in size from comparison. No additional pathologic adenopathy about the chest identified. Heart is normal in size without pericardial effusion. Prior median sternotomy and CABG. [place] coronary arterial disease is seen along with moderate atherosclerosis of the aorta. No aortic aneurysm. There is no pneumothorax or pleural effusion. Mild left hemidiaphragmatic elevation. Mild to moderate centrilobular emphysematous changes are redemonstrated. Mild bilateral bronchial wall thickening is noted with multifocal areas of mucous plugging, notably within the lung bases. Additionally, there is multifocal scattered groundglass and tree-in-bud nodularity, greatest within the right upper lobe which has improved from prior study. No focal airspace consolidation identified to suggest pneumonia. Postoperative changes from prior wedge resection within the lingula. Mild linear subsegmental pleural-parenchymal consolidation is noted adjacent to the suture material and inferior portion of the major fissure suggesting postoperative scarring which appears unchanged from prior. No acute abnormality of the imaged upper abdomen. There is resolution of the previously described subcutaneous emphysema along the left chest wall. Bones of the chest appear grossly intact. IMPRESSION: 1. Emphysema with bilateral bronchial wall thickening compatible with bronchitis. There is a mild mucoid impaction noted within bronchi of the lower lobes. 2. Improved aeration of the lateral lungs with minimal persistent patchy scattered groundglass and tree-in-bud nodularity suggesting persistent infectious or inflammatory pneumonitis. 3. Postoperative changes from prior wedge resection of the lingula. No postoperative fluid collections or acute abnormality identified related to the area of prior surgery. 4. Resolution of the previously described subcutaneous emphysema of the left chest wall. 5. Mildly decreased size of the indeterminate minimally enlarged AP window lymph node. 6. Additional findings as above. Electronically signed by: Topher Smith M.D. 01/11/2018 12:25 PM Dictated Date/Time: 01/11/2018 12:17 PM
== END | disposition home or self-care (01) ==
LOC: C.CTS 11:59
PROVIDERS: ATTEND Surgery
DX: J85.2 Abscess of lung without pneumonia (principal); J43.9 Emphysema, unspecified; Z90.2 Acquired absence of lung [part of]

== ENCOUNTER 2023-01-17 11:04 | Inpatient (IN) ==
--- NOTE | 2023-01-17 11:09 | Emergency Department Note ---
Impression & Plan Pneumonia, Elevated troponin, Acute hypoxemic respiratory failure, COVID-19 ED Provider Note NAME: MILDRED CORONA AGE: 77 SEX: F : 1945 ARRIVES VIA: Ambulance INFORMANT: Patient, ED PROVIDER(S): Andry Peres MD CHIEF COMPLAINT: Weakness, positive COVID MEDICAL DECISION MAKING: Patient presents due to concern for weakness positive COVID and increasing oxygen requirement. An IV was established blood work was obtained the patient was ordered procalcitonin COVID flu and RSV swab chest x-ray and IV fluids as the patient was mildly hypotensive upon arrival. Patient is awake alert following commands. Initial 30 cc/kg bolus was held as the patient is on Lasix every other day. We will initially monitor for response after 500 cc bolus. Patient was ordered an additional 1 L of IV fluids. the patient's blood work shows a white count of 15 and the patient did receive Rocephin. Mild anemia hemoglobin of 10.8 this is chronic and stable. Platelet count is unremarkable. Kidney function with no significant findings as kidney function is unremarkable with normal electrolytes. Magnesium slightly low at 1.3 and this was ordered for replacement. Lactate is not elevated procalcitonin is elevated I did add azithromycin p.o. Initial troponin 279. The patient has no chest pains and this may be demand ischemia due to the patient's increasing oxygen demand and COVID illness with associated pneumonia as the patient's chest x-ray does show right-sided consolidation. Urinalysis does not show blood or infection. Patient is COVID-positive negative for flu and RSV. Patient already did receive methylprednisolone in route. I did speak to the on-call hospitalist Dr. Morales and the patient was admitted to the medicine service. Critical Care: I have personally spent 45 minutes of critical care time in direct management of this patient. This includes bedside care, interpretation of diagnostic studies, and testing, discussion with consultants, patient, and family members, and other require inpatient management activities. This 45 minutes is in excess of all separately billable procedures. Prior /Outside records reviewed: None Differential diagnosis: Reactive airway disease, pneumonia, pneumothorax, COPD, CHF, infections, cardiac ischemia, pulmonary embolism, musculoskeletal, gastrointestinal, as well as other pathologies. Diagnostics, as interpreted by me: ECG: Normal sinus rhythm, rate of 100, normal intervals normal axis nonspecific T wave abnormality no ST elevations. Cardiac monitoring: An order was placed for continuous cardiac monitoring. The monitor shows a rate of 88 with sinus rhythm. Patient was placed on pulse oximetry Medical decision rules: None Imaging studies: See below HPI: Patient presents with weakness and shortness of breath. Patient states that this initially began Monday and to be worsening today to where she woke up she was unable to get out of bed did feel weak and fatigued. The patient does wear 3 L of oxygen. Patient does have a known history of prior COPD and oxygen requirement. The patient did test positive COVID yesterday. Patient denies any chest pains. The patient did receive IV Solu-Medrol and Tylenol in route the patient did present with a fever. Patient has not smoked in several years and the patient did have a lumpectomy completed several years ago. Patient denies any leg swelling or calf pain. No history of DVT or PE. Patient states that she did take her morning meds. The patient has trialed her nebulizer but without significant improvement in symptoms. Patient [place] any nausea vomiting or diarrhea has had decreased p.o. intake PAST MEDICAL HISTORY: See Below PAST SURGICAL HISTORY: See Below SOCIAL HISTORY: See Below HOME MEDICATIONS: See Below ALLERGIES: See Below VITALS: See Below PHYSICAL EXAMINATION: GENERAL: Wearing glasses, nasal cannula in place. EYE EXAM: Normal conjunctiva. PERRL, no anisocoria and EOM's grossly intact w/o pain. NECK: Supple, no nuchal rigidity, no adenopathy, non-tender. No signs of meningismus. FROM of the neck with good chin to chest and neck extension. No s tridor. LUNGS: More coarse sounds on the right, no tachypnea. HEART: NSR, no MRG. ABDOMEN: Abdomen soft, non-tender, normo-active bowel sounds, no masses, no rebound or guarding. BACK: No CVA TTP. SKIN: No rashes and no bruising. UPPER EXTREMITIES: Upper extremities are grossly normal. LOWER EXTREMITIES: Grossly normal, no edema. Negative Homans' sign bilaterally. NEURO EXAM: A&O x3, cranial nerves II-XII grossly intact, normal speech, moves all 4 extremities. 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 Verified 01/17/23 14:21 Antibiotics) vancomycin Allergy Unknown RASH Verified 01/17/23 14:21 metoclopramide AdvReac Unknown DELIRIUM Verified 01/17/23 14:21 oxycodone AdvReac Unknown itchy TO Verified 01/17/23 14:21 ROXICET. Takes oxycodone at home. Home Meds Home Medications Medication Instructions Recorded Confirmed albuterol sulfate 90 mcg/actuation 2 puffs inhalation Q4H PRN 09/23/19 01/17/23 aerosol inhaler (Ventolin HFA) Shortness Of Breath Or Wheezing aspirin 81 mg tablet,delayed 81 mg PO DAILY 09/23/19 01/17/23 release (Adult Low Dose Aspirin) magnesium oxide 400 mg (241.3 mg 400 mg PO BID 09/23/19 01/17/23 magnesium) tablet montelukast 10 mg tablet 10 mg PO DAILY 05/06/21 01/17/23 allopurinol 100 mg tablet 100 mg PO DAILY 01/17/23 01/17/23 atorvastatin 40 mg tablet 40 mg PO HS 01/17/23 01/17/23 budesonide-formoterol HFA 160 2 puff inhalation BID 01/17/23 01/17/23 mcg-4.5 mcg/actuation aerosol inhaler (Symbicort) cholecalciferol (vitamin D3) 125 125 mcg PO DAILY 01/17/23 01/17/23 mcg (5,000 unit) tablet (Vitamin D3) clopidogrel 75 mg tablet 75 mg PO DAILY 01/17/23 01/17/23 escitalopram oxalate 20 mg tablet 20 mg PO DAILY 01/17/23 01/17/23 famotidine 20 mg tablet 20 mg PO BID 01/17/23 01/17/23 fluticasone fur. 200 mcg-umeclid 1 ea inhalation DAILY 01/17/23 01/17/23 62.5 mcg-vilant 25 mcg inhalat.powder (Trelegy Ellipta) furosemide 40 mg tablet 20 - 40 mg PO DAILY PRN Edema 01/17/23 01/17/23 ipratropium bromide 17 2 puff inhalation QID 01/17/23 01/17/23 mcg/actuation HFA aerosol inhaler (Atrovent HFA) meclizine 25 mg tablet 25 mg PO TID PRN .dizzy 01/17/23 01/17/23 metoprolol succinate 50 mg 50 mg PO DAILY 01/17/23 01/17/23 tablet,extended release 24 hr nirmatrelvir 150 mg-ritonavir 100 1 ea PO BID 01/17/23 01/17/23 mg tablets in a dose pack (EUA) (Paxlovid) oxycodone-acetaminophen 10 mg-325 1 tab PO Q4 PRN Pain 01/17/23 01/17/23 mg tablet potassium chloride 20 mEq 20 meq PO DAILY 01/17/23 01/17/23 tablet,extended release(part/cryst) pregabalin 150 mg capsule 150 mg PO TID 01/17/23 01/17/23 Results & Data (ED) Vital Signs Vital Signs - 24 hr 01/17/23 11:16 01/17/23 11:30 01/17/23 11:12 Temperature 39.3 C H Temperature Source Oral Pulse Rate 103 H 91 H 104 H Pulse Rate from SpO2 Sensor Respiratory Rate 17 26 H Blood Pressure 99/62 L Blood Pressure Mean 74 Pulse Oximetry 92 Oxygen Delivery Method Nasal Cannula Oxygen Flow Rate 5 Sepsis Recent Fever Within 48 Hours Yes Sepsis New/Unexplained Change in Mental Status No Sepsis Action Taken by Nursing Physician Notified 01/17/23 11:15 01/17/23 11:30 01/17/23 11:45 Temperature Temperature Source Pulse Rate 103 H 93 H 92 H Pulse Rate from SpO2 Sensor 93 H 92 H Respiratory Rate 22 20 19 Blood Pressure Blood Pressure Mean Pulse Oximetry 94 95 Oxygen Delivery Method Nasal Cannula Nasal Cannula Oxygen Flow Rate 5 5 Sepsis Recent Fever Within 48 Hours Sepsis New/Unexplained Change in Mental Status Sepsis Action Taken by Nursing 01/17/23 11:55 01/17/23 11:55 01/17/23 12:00 Temperature Temperature Source Pulse Rate 91 H Pulse Rate from SpO2 Sensor 92 H Respiratory Rate 20 Blood Pressure 113/75 115/92 Blood Pressure Mean 87 99 Pulse Oximetry 99 Oxygen Delivery Method Nebulizer Oxygen Flow Rate 10 Sepsis Recent Fever Within 48 Hours Sepsis New/Unexplained Change in Mental Status Sepsis Action Taken by Nursing 01/17/23 12:00 01/17/23 12:21 01/17/23 12:21 Temperature Temperature Source Pulse Rate 94 H 100 H Pulse Rate from SpO2 Sensor 94 H Respiratory Rate 22 26 H Blood Pressure 107/62 Blood Pressure Mean 77 Pulse Oximetry 97 Oxygen Delivery Method Nasal Cannula Oxygen Flow Rate 5 Sepsis Recent Fever Within 48 Hours Sepsis New/Unexplained Change in Mental Status Sepsis Action Taken by Nursing 01/17/23 12:30 01/17/23 12:30 01/17/23 12:45 Temperature Temperature Source Pulse Rate 93 H Pulse Rate from SpO2 Sensor 94 H Respiratory Rate 19 Blood Pressure 109/41 L 108/78 Blood Pressure Mean 63 88 Pulse Oximetry 93 Oxygen Delivery Method Nasal Cannula Oxygen Flow Rate 5 Sepsis Recent Fever Within 48 Hours Sepsis New/Unexplained Change in Mental Status Sepsis Action Taken by Nursing 01/17/23 12:45 01/17/23 13:00 01/17/23 13:00 Temperature Temperature Source Pulse Rate 93 H 92 H Pulse Rate from SpO2 Sensor 93 H 92 H Respiratory Rate 20 17 Blood Pressure 123/71 Blood Pressure Mean 88 Pulse Oximetry 95 93 Oxygen Delivery Method Nasal Cannula Nasal Cannula Oxygen Flow Rate 5 5 Sepsis Recent Fever Within 48 Hours Sepsis New/Unexplained Change in Mental Status Sepsis Action Taken by Nursing 01/17/23 13:15 01/17/23 13:15 Temperature Temperature Source Pulse Rate 87 Pulse Rate from SpO2 Sensor 88 Respiratory Rate 16 Blood Pressure 136/59 L Blood Pressure Mean 84 Pulse Oximetry 96 Oxygen Delivery Method Nasal Cannula Oxygen Flow Rate 5 Sepsis Recent Fever Within 48 Hours Sepsis New/Unexplained Change in Mental Status Sepsis Action Taken by Prison Medications Current Medication List: was personally reviewed by ks Laboratory Data Attestation: I reviewed the patient's lab results. 01/17/23 11:34 01/17/23 11:34 Lab Results 01/17/23 01/17/23 01/17/23 Range/Units 11:34 11:34 11:34 WBC 15.36 H (4.8-10.8) K/ul RBC 3.73 L (4.20-5.40) M/uL Hgb 10.8 L (12.0-16.0) g/dl Hct 33.6 L (37.0-47.0) % MCV 90.1 (80.0-100.0) fL MCH 29.0 (25.0-34.0) pg MCHC 32.1 (32.0-36.0) g/dL RDW Std Deviation 47.5 H (36.4-46.3) fL RDW Coeff of Jane 14.4 (11.5-14.5) % Plt Count 273 (130-400) K/uL MPV 9.9 (9.4-12.4) fL Immature Gran % (Auto) 0.7 % Neut % (Auto) 86.6 % Lymph % (Auto) 4.2 % [place] % (Auto) 6.8 % Eos % (Auto) 1.4 % Baso % (Auto) 0.3 % Neut # (Auto) 13.30 H (1.40-6.50) K/uL Lymph # (Auto) 0.64 L (1.2-3.4) K/uL [place] # (Auto) 1.05 H (0.11-0.59) K/uL Eos # (Auto) 0.21 (0-0.50) K/uL Baso # (Auto) 0.05 (0-0.2) K/uL Immature Gran # (Auto) 0.11 (0.01-0.20) K/uL Sodium 140 (136-145) mmol/L Potassium 3.7 (3.5-5.1) mmol/L Chloride 102 (98-107) mmol/L Carbon Dioxide 33 H (21-32) mmol/L Anion Gap 5 (3-11) BUN 13 (6-23) mg/dl Creatinine 0.90 (0.6-1.2) mg/dl Est Cr Clr Drug Dosing 52.0 ml/min Est GFR ( Amer) 72.0 ml/min Est GFR (Non-Af Amer) 62.1 ml/min BUN/Creatinine Ratio 14.4 (10-20) Glucose 114 H (70-99(Fasting)) mg/dl Lactate 1.8 (0.4-2.0) mmol/L Calcium 8.8 (8.5-10.1) mg/dl Magnesium 1.3 L (1.7-2.4) mg/dl Total Bilirubin 0.6 (0.2-1.0) mg/dl Direct Bilirubin 0.1 (0-0.2) mg/dl AST 17 (13-39) U/L ALT 9 (7-52) U/L Alkaline Phosphatase 97 (34-104) U/L Troponin I High Sens 279.6 H* (0-14) pg/ml Total Protein 6.0 (6.0-8.3) gm/dl Albumin 3.7 (3.4-5.0) gm/dl Procalcitonin (0-0.5) ng/ml Urine Color Urine Appearance (Clear) Urine pH (4.5-7.5) Ur Specific [place] (1.000-1.030) Urine Protein (Negative) Urine Glucose (UA) (Negative) Urine Ketones (Negative) Urine Blood (Negative) Urine Nitrite (Negative) Urine Bilirubin (Negative) Urine Urobilinogen (Negative) Ur Leukocyte Esterase (Negative) SARS-CoV-2 (PCR) (Negative) Influenza Type A (PCR) (Neg) Influenza Type B (PCR) (Neg) RSV (RT-PCR) (Neg) 01/17/23 01/17/23 01/17/23 Range/Units 11:34 11:50 12:37 WBC (4.8-10.8) K/ul RBC (4.20-5.40) M/uL Hgb (12.0-16.0) g/dl Hct (37.0-47.0) % MCV (80.0-100.0) fL MCH (25.0-34.0) pg MCHC (32.0-36.0) g/dL RDW Std Deviation (36.4-46.3) fL RDW Coeff of Jane (11.5-14.5) % Plt Count (130-400) K/uL MPV (9.4-12.4) fL Immature Gran % (Auto) % Neut % (Auto) % Lymph % (Auto) % [place] % (Auto) % Eos % (Auto) % Baso % (Auto) % Neut # (Auto) (1.40-6.50) K/uL Lymph # (Auto) (1.2-3.4) K/uL [place] # (Auto) (0.11-0.59) K/uL Eos # (Auto) (0-0.50) K/uL Baso # (Auto) (0-0.2) K/uL Immature Gran # (Auto) (0.01-0.20) K/uL Sodium (136-145) mmol/L Potassium (3.5-5.1) mmol/L Chloride (98-107) mmol/L Carbon Dioxide (21-32) mmol/L Anion Gap (3-11) BUN (6-23) mg/dl Creatinine (0.6-1.2) mg/dl Est Cr Clr Drug Dosing ml/min Est GFR ( Amer) ml/min Est GFR (Non-Af Amer) ml/min BUN/Creatinine Ratio (10-20) Glucose (70-99(Fasting)) mg/dl Lactate (0.4-2.0) mmol/L Calcium (8.5-10.1) mg/dl Magnesium (1.7-2.4) mg/dl Total Bilirubin (0.2-1.0) mg/dl Direct Bilirubin (0-0.2) mg/dl AST (13-39) U/L ALT (7-52) U/L Alkaline Phosphatase (34-104) U/L Troponin I High Sens (0-14) pg/ml Total Protein (6.0-8.3) gm/dl Albumin (3.4-5.0) gm/dl Procalcitonin 11.29 H (0-0.5) ng/ml Urine Color Yellow Urine Appearance Clear (Clear) Urine pH 7.0 (4.5-7.5) Ur Specific [place] 1.012 (1.000-1.030) Urine Protein Negative (Negative) Urine Glucose (UA) Negative (Negative) Urine Ketones Negative (Negative) Urine Blood Negative (Negative) Urine Nitrite Negative (Negative) Urine Bilirubin Negative (Negative) Urine Urobilinogen Negative (Negative) Ur Leukocyte Esterase Negative (Negative) SARS-CoV-2 (PCR) POSITIVE A* (Negative) Influenza Type A (PCR) Negative (Neg) Influenza Type B (PCR) Negative (Neg) RSV (RT-PCR) Negative (Neg) Administered Medications Albuterol (Albut/Ipratrop 3mg/0.5mg Neb 3 Ml Vial) 3 ml NEB QIDR [facility]; Protocol Stop: 02/16/23 14:59 Last Admin: 01/17/23 15:05 Dose: 3 ml Documented By: [id number] Aspirin (Aspirin 81 Mg Ectab) 81 mg PO DAILY [facility] Stop: 02/16/23 16:34 Last Admin: 01/17/23 17:42 Dose: 81 mg Documented By: AMW Enoxaparin Sodium (Enoxaparin Inj 40 Mg/0.4 Ml Syr) 40 mg SQ Q24H [facility] Stop: 02/16/23 16:59 Last Admin: 01/17/23 17:42 Dose: 40 mg Documented By: YELENA Cefepime HCl 2,000 mg/ Syringe 20 mls @ 5 mls/min IV Q12H [facility]; Protocol Stop: 01/24/23 15:59 Last Admin: 01/17/23 17:04 Dose: 5 mls/min Documented By: YELENA Metoprolol Succinate (Metoprolol Succ 50mg Ext Rel Tab) 50 mg PO DAILY [facility] Stop: 02/16/23 16:34 Last Admin: 01/17/23 17:42 Dose: 50 mg Documented By: YELENA Discontinued Medications Albuterol (Albuterol 0.083% Nebu Soln 3 Ml Vial) 2.5 mg NEB NOW STA; Protocol Stop: 01/17/23 11:23 Last Admin: 01/17/23 11:44 Dose: 2.5 mg Documented By: [id number] Azithromycin (Azithromycin 250 Mg Tab) 500 mg PO NOW ONE Stop: 01/17/23 12:53 Last Admin: 01/17/23 13:53 Dose: 500 mg Documented By: [id number] Fluticasone/Vilanterol (Fluticasone/Vilanterol 200/25mcg 14 Puffs/Inhaler) 1 puffs INH DAILY [facility] Stop: 02/16/23 15:14 Last Admin: 01/17/23 15:19 Dose: 1 puffs Documented By: [id number] Sodium Chloride (Nss 1000ml) 500 mls @ 999 mls/hr IV .Q31M JAN Stop: 01/17/23 12:00 Last Infusion: 01/17/23 12:13 Dose: 0 mls/hr Documented By: [id number] Admin: 01/17/23 11:24 Dose: 999 mls/hr Documented By: [id number] Sodium Chloride (Nss 1000ml) 1,000 mls @ 999 mls/hr IV .Q1H1M ONE Stop: 01/17/23 12:42 Last Infusion: 01/17/23 17:32 Dose: 0 mls/hr Documented By: Admin: 01/17/23 11:49 Dose: 999 mls/hr Documented By: [id number] Ceftriaxone Sodium (Rocephin) 2,000 mg in 70 mls @ 140 mls/hr IV NOW STA Stop: 01/17/23 12:11 Last Infusion: 01/17/23 12:52 Dose: 0 mls/hr Documented By: [id number] Admin: 01/17/23 12:10 Dose: 140 mls/hr Documented By: [id number] Magnesium Sulfate/Dextrose (Magnesium Sulfate / D5w) 1 gm in 100 mls @ 100 mls/hr IV NOW STA Stop: 01/17/23 13:56 Last Infusion: 01/17/23 17:32 Dose: 0 mls/hr Documented By: Admin: 01/17/23 13:53 Dose: 100 mls/hr Documented By: [id number] Remdesivir 200 mg/ Sodium (Chloride) 250 mls @ 125 mls/hr IV ONE STA; Protocol Stop: 01/17/23 16:13 Last Infusion: 01/17/23 17:32 Dose: 0 mls/hr Documented By: Admin: 01/17/23 15:17 Dose: 125 mls/hr Documented By: [id number] Magnesium Sulfate/Dextrose (Magnesium Sulfate / D5w) 1 gm in 100 mls @ 50 mls/hr IV Q2H JAN Stop: 01/17/23 19:14 Last Admin: 01/17/23 17:38 Dose: 50 mls/hr Documented By: YELENA Ipratropium [place] (Ipratropium [place] Hfa Inhaler) 2 puffs INH NOW STA Stop: 01/17/23 14:25 Last Admin: 01/17/23 17:31 Dose: Not Given Documented By: YELENA Oxycodone/Acetaminophen (Oxycodone/Acetaminophen 5mg/325mg Tab) 1 tab PO NOW STA Stop: 01/17/23 14:47 Last Admin: 01/17/23 15:18 Dose: 1 tab Documented By: [id number] Imaging Data Radiologist's Impression: Chest X-Ray 01/17/23 11:22 SINGLE VIEW CHEST CLINICAL HISTORY: Sepsis. FINDINGS: An AP, portable, upright chest radiograph is compared to study dated 08/20/2017 and correlated with chest CT dated 10/01/2019. The patient is status post midline sternotomy. The heart is enlarged noting atherosclerotic calcifi cation of the thoracic aorta. The pulmonary vasculature is noncongested. Emphysema and chronic interstitial thickening is similar to previous. There is dense airspace consolidation in the right upper lobe. Milder opacities are seen in the right lung base. Suspect a small right pleural effusion. No pneumothorax is seen. The skeletal structures are osteopenic. The bony thorax is grossly intact. IMPRESSION: 1. Cardiomegaly and emphysema with no radiographic evidence of congestive failure. 2. There is dense airspace consolidation in the right upper lobe typical for pneumonia. Clinical correlation will be required and radiographic follow-up to resolution is recommended. 3. Suspect a small right pleural effusion. ACT 112: Negative or not required by law. Electronically signed by: Slade Aranda M.D. 01/17/2023 11:57 AM Discharge Plan Visit Data Chief Complaint: Illness ED Provider: Andry Peres Discharge Problem: Pneumonia, Elevated troponin, Acute hypoxemic respiratory failure, COVID-19 Patient Disposition: Admitted As Inpatient Discharge Instructions Interventions: ED Discharge Assessment Last Done: 01/17/23 16:04
[2023-01-17] MEDS ORDERED: ALBUTEROL 0.083% NEBU SOLN 3 ML VIAL NEB STA (11:22)
[2023-01-17] MEDS ORDERED: SODIUM CHLORIDE 0.9% 1000ML 500 ML IV SCH (11:30)
[2023-01-17] MEDS ORDERED: cefTRIAXone SODIUM 2,000 MG/70 ML BAG IV STA (11:42)
[2023-01-17] MEDS ORDERED: SODIUM CHLORIDE 0.9% 1000ML 1,000 ML IV ONE (11:42)
--- NOTE | 2023-01-17 11:58 | XRay Report ---
SINGLE VIEW CHEST CLINICAL HISTORY: Sepsis. FINDINGS: An AP, portable, upright chest radiograph is compared to study dated 08/20/2017 and correlat ed with chest CT dated 10/01/2019. The patient is status post midline sternotomy. The heart is enlarge d noting atherosclerotic calcification of the thoracic aorta. The pulmonary vasculature is noncongest ed. Emphysema and chronic interstitial thickening is similar to previous. There is dense airspace con solidation in the right upper lobe. Milder opacities are seen in the right lung base. Suspect a small right pleural effusion. No pneumothorax is seen. The skeletal structures are osteopenic. The bony th orax is grossly intact. IMPRESSION: 1. Cardiomegaly and emphysema with no radiographic evidence of congestive failure. 2. There is dense airspace consolidation in the right upper lobe typical for pneumonia. Clinical disha elation will be required and radiographic follow-up to resolution is recommended. 3. Suspect a small right pleural effusion. ACT 112: Negative or not required by law. Electronically signed by: Slade Aranda M.D. 01/17/2023 11:57 AM
[2023-01-17 11:59] LABS: Basophils # (auto) 0.05 K/uL (0-0.2); Basophils % (auto) 0.3 %; Eosinophils # (auto) 0.21 K/uL (0-0.50); Eosinophils % (auto) 1.4 %; Hematocrit (blood only) 33.6 % (37.0-47.0); Hemoglobin 10.8 g/dl (12.0-16.0); Immature Granulocytes # (auto) 0.11 K/uL (0.01-0.20); Immature Granulocytes % (auto) 0.7 %; Lymphocytes # (auto) 0.64 K/uL (1.2-3.4); Lymphocytes % (auto) 4.2 %; Mean Corpuscular Hgb Conc 32.1 g/dL (32.0-36.0); Mean Corpuscular Volume 90.1 fL (80.0-100.0); Mean Platelet Volume 9.9 fL (9.4-12.4); Monocytes # (auto) 1.05 K/uL (0.11-0.59); Monocytes % (auto) 6.8 %; Neutrophils % (auto) 86.6 %; Platelet Count 273 K/uL (130-400); RDW Coefficient of Variation 14.4 % (11.5-14.5); RDW Standard Deviation 47.5 fL (36.4-46.3); Red Blood Count 3.73 M/uL (4.20-5.40); White Blood Count 15.36 K/ul (4.8-10.8)
[2023-01-17 12:11] LABS: Albumin Level 3.7 gm/dl (3.4-5.0); BUN Creatinine Ratio 14.4 (10-20); Bilirubin Direct 0.1 mg/dl (0-0.2); Bilirubin,Total 0.6 mg/dl (0.2-1.0); Calcium 8.8 mg/dl (8.5-10.1); Est GFR (Non-African American) 62.1 ml/min; Magnesium 1.3 mg/dl (1.7-2.4); Potassium 3.7 mmol/L (3.5-5.1)
[2023-01-17 12:27] LABS: Troponin I High Sensitivity 279.6 pg/ml (0-14)
[2023-01-17] MEDS ORDERED: AZITHROMYCIN 250 MG TAB PO ONE (12:52)
--- NOTE | 2023-01-17 12:55 | History & Physical Report ---
Date of Service January 17, 2023 Assessment & Plan (1) Acute on chronic respiratory failure with hypoxia: Plan: -Admit to the PCU on tele and pulse oximetry -At this time the patient is currently afebrile, hemodynamically stable and now stable on her 3L NC -The patient started to developed a productive cough, increased SOB from baseline and generalized weakness yesterday, tested covid positive yesterday. Was found to be hypoxic in the low 80's on her 3L NC this am by EMS -Her acute on chronic hypoxic respiratory failure is multifactorial at this time including covid 19 pneumonia, superimposed bacterial pneumonia of the right lung and her poor baseline respiratory status from COPD and previous left upper lobectomy. Low suspiscion for PE at this time as patient is without pleuritic chest pain, is hemodynamically stable, and back to her baseline O2 requirements. If she were to clinicially decline with the current treatment regimen would consider a CTPE for further assessment -S/P 125 mg IV solu-medrol, 1000 mg IV tylenol, one albuterol treatment, a dose of ceftriaxone and azithromycin and 2L NSS in the ED -The patient and her family agree that her clinical status has substantially improved bncompared to this am prior to arrival -Will continue the patient on Azithromycin but will change ceftriaxone to cefepime for now to cover for possible aspiration pneumonia. Patient does have reported hives with penicillins but tolerated the ceftriaxone well in the ED -Will start Remdesivir with first dose today, will continue with 40 mg IV solu- medrol daily for now until she is more stable, could consider switching to dexamethasone to completed a 10 day course for her covid pneumonia -Incentive spirometry, flutter therapy, scheduled and prn DuoNebs, scheduled Robitussin -Continue home breathing treatments -Will obtain a MRSA nasal swap and sputum culture with gram stain, blood cultures obtained in the ED prior to admission -If patient continues to decline would consult Pulmonology as she follows with Dr. Fraire -BL SCDs and Sub-Q lovenox for DVT PPX -AM CBC, CMP, and mag (2) Elevated troponin: Plan: -Initial high sensitivity trop elevated at 279, patient is asymptomatic and without acute ST segment or T-wave chnages on ECG today -Likely due to demand at this time from her acute illness and hypoxia -Patient does have multiple risk factors for ACS with previous coronary artery stenting -Continue to monitor high sensitivity trop q6h until it begins to trend down -Continue aspirin and plavix -Consult cardiology with any concerning findings (3) COVID-19: Plan: -See acute on chronic hypoxic respiratory failure (4) COPD (chronic obstructive pulmonary disease): Plan: -See acute on chronic hypoxic respiratory failure (5) Hypertension: Plan: -Stable -Hold amlodipine for now with soft BPs -Continue metoprolol for now (6) CAD (coronary artery disease): Plan: -Continue aspirin and plavix (7) Hypomagnesemia: Plan: -Noted to be 1.3 today -Likely due to poor oral intake and lasix use -S/P 1gm IV mag in the ED, will give an additional 2gm IV on admission -Hold lasix for now as she examines Euvolemic-dry on exam -Continue home mag supplement and monitor am Mag and CMP (8) Hyperlipemia: Plan: -Continue statin Plan The patient was discussed with Dr. 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 IN the ED the patient was found to be febrile at 39.3, hemodynamically stable, and stable on 5L NC. Per the ED staff, the patient tested positive for Covid with a home test yesterday. Today she called EMS who found her to be hypoxic on 3L NC in the 80's, which improved after increased her O2 to 6L NC. In route to the ED the patient was given 125 mg IV solu-Medrol and 1000 mg IV tylenol. Labs were remarkable for a leukocytosis of 15 with left shift of 13, stable Hgb and platelets, stable cr at 0.9, mag of 1.3 otherwise stable electrolytes, AG of 5 with bicarb of 33, glucose of 144, initial high sensitivity trop of 279 with procal of 11, and clean UA. Chest xray was read as "1. Cardiomegaly and emphysema with no radiographic evidence of congestive failure. 2. There is dense airspace consolidation in the right upper lobe typical for pneumonia. Clinical correlation will be required and radiographic follow-up to resolution is recommended. 3. Suspect a small right pleural effusion.". Prior to admission the patient was given one dose of ceftriaxone, a dose of azithromycin, 1 mg IV magnesium, an albuterol treatment, and 2 L NSS bolus. At the time of the exam the patient was resting in bed in no acute distress with her and daughter sitting bedside. She explains that she was in her normal state of health until yesterday when she began to develop a productive cough with yellow sputum, increased SOB compared to baseline, and generalized weakness. She explains that she normally wears 3L NC at home at all times and 2L NC with her portable oxygen machine when she leaves the house. She was unable to take any of her oral or COPD medications this morning due to her acute illness. At baseline she is normally able to ambulate well without the use of a walker or a can. Today she felt generally weak all over with her legs feeling very weak. She sat on the toilet and had difficult getting up this morning due to her weakness. She states that she test positive for covid yesterday at home. Her son recently tested positive for covid and was given a prescription for Paxlovid but stopped taking it due to it's foul taste. She and her explained that she did take 3 doses of Paxlovid between yesterday and today. She has an extensive cardiac history including open heart surgery in 2009 for removal of her atrial myxoma. She states that she has had 3 total stent placed, 2 in 2009 and one in 2020 but is unsure of the location of the stents. She confirms that she has been without chest pain or discomfort since her symptoms began yesterday. When asked, she states that she quit smoking in 2009 after her cardiac procedures. I discussed starting steroids and Remdesivir due to her hypoxia and being covid positive, she would like to start both as she had covid pneumonia last year and received both without complications. I had a long discussion with the patient and her family regarding code status. I explained the success rate of CPR and defibrillation in the event of cardiac arrest and the low chance of success if she were to go into cardiac arrest. I also explained my concerns that if we were successful with CPR and defibrillation that her quality of life would be poor following. I also explained the low chance of her coming off a ventilator if she were to need to be intubated in the event of respiratory failure. She and her family expressed understanding but she still wishes to be a full code at this time. I explained that we would honor her wishes. She would want her to make decisions for her if she could not make them herself. Please refer to Dr. Virgen's attestation for any changes to the treatment plan Allergies Allergy/AdvReac Type Severity Reaction Status Date / Time cephalexin Allergy Mild Hives Verified 01/17/23 14:21 adhesive Allergy Unknown RASH Verified 01/17/23 14:21 Penicillins Allergy Unknown HIVES WITH Verified 01/17/23 14:21 AMOXICILLIN Sulfa (Sulfonamide Allergy Unknown . Verified 01/17/23 14:21 Antibiotics) vancomycin Allergy Unknown RASH Verified 01/17/23 14:21 metoclopramide AdvReac Unknown DELIRIUM Verified 01/17/23 14:21 oxycodone AdvReac Unknown itchy TO Verified 01/17/23 14:21 ROXICET. Takes oxycodone at home. Home Medications Medication Instructions Recorded Confirmed Type albuterol sulfate 90 mcg/actuation 2 puffs inhalation Q4H PRN 09/23/19 01/17/23 History aerosol inhaler (Ventolin HFA) Shortness Of Breath Or Wheezing aspirin 81 mg tablet,delayed 81 mg PO DAILY 09/23/19 01/17/23 History release (Adult Low Dose Aspirin) magnesium oxide 400 mg (241.3 mg 400 mg PO BID 09/23/19 01/17/23 History magnesium) tablet montelukast 10 mg tablet 10 mg PO DAILY 05/06/21 01/17/23 History allopurinol 100 mg tablet 100 mg PO DAILY 01/17/23 01/17/23 History atorvastatin 40 mg tablet 40 mg PO HS 01/17/23 01/17/23 History budesonide-formoterol HFA 160 2 puff inhalation BID 01/17/23 01/17/23 History mcg-4.5 mcg/actuation aerosol inhaler (Symbicort) cholecalciferol (vitamin D3) 125 125 mcg PO DAILY 01/17/23 01/17/23 History mcg (5,000 unit) tablet (Vitamin D3) clopidogrel 75 mg tablet 75 mg PO DAILY 01/17/23 01/17/23 History escitalopram oxalate 20 mg tablet 20 mg PO DAILY 01/17/23 01/17/23 History famotidine 20 mg tablet 20 mg PO BID 01/17/23 01/17/23 History fluticasone fur. 200 mcg-umeclid 1 ea inhalation DAILY 01/17/23 01/17/23 History 62.5 mcg-vilant 25 mcg inhalat.powder (Trelegy Ellipta) furosemide 40 mg tablet 20 - 40 mg PO DAILY PRN Edema 01/17/23 01/17/23 History ipratropium bromide 17 2 puff inhalation QID 01/17/23 01/17/23 History mcg/actuation HFA aerosol inhaler (Atrovent HFA) meclizine 25 mg tablet 25 mg PO TID PRN .dizzy 01/17/23 01/17/23 History metoprolol succinate 50 mg 50 mg PO DAILY 01/17/23 01/17/23 History tablet,extended release 24 hr nirmatrelvir 150 mg-ritonavir 100 1 ea PO BID 01/17/23 01/17/23 History mg tablets in a dose pack (EUA) (Paxlovid) oxycodone-acetaminophen 10 mg-325 1 tab PO Q4 PRN Pain 01/17/23 01/17/23 History mg tablet potassium chloride 20 mEq 20 meq PO DAILY 01/17/23 01/17/23 History tablet,extended release(part/cryst) pregabalin 150 mg capsule 150 mg PO TID 01/17/23 01/17/23 History Past Med/Surg History Medical History (Updated 01/17/23 @ 13:16 by Durga Jurado PA-C) COPD (chronic obstructive pulmonary disease) Heart disease Hypertension Lumbar stenosis with neurogenic claudication Surgical History (Updated 01/17/23 @ 13:04 by Anika Caldera DO) S/P lobectomy of lung Social History Smoking Status: Former smoker Tobacco Type: Cigarettes Feels Safe at Home: Yes Review of Systems Review of Systems: Denies current headache, changes in vision, hearing, taste, and smell, chest pain, abdominal pain, nausea, vomiting, diarrhea, hematemesis, melena, dysuria, hematuria, and recent falls. All systems have been reviewed and are otherwise negative. Physical Exam Physical Exam: Physical Exam: General: In no acute distress, stated age, chronically ill-appear but non- toxic appearing HEENT: Normocephalic, atraumatic, no scleral icterus, pupils around round, symmetrical, and reactive to light, NC currently in place on 3L, dry mucus memb ranes, trachea midline, no thyromegaly Chest/Pulm: No respiratory distress, symmetrical chest expansion, scattered rhonchi throughout the right lung, absent breathing sounds in the left upper lung field with expiratory wheezing noted in the left lower lobes Cardiac: RRR, no murmurs noted Abdomen: Negative for ascites and bruising, normoactive bowel sounds, soft, non-tender to palpation throughout Musculoskeletal: Symmetrical and without signs of acute trauma, upper and lower extremities with full ROM, no atrophy, spasticity, or flaccidity Extremities: Radial, dorsalis pedis, and posterior tibial pulses are intact and symmetrical, no edema noted in the BL LE's Skin: Warm, dry, no rashes , lesions, or scars noted Neuro: Alert and oriented to person, place, month, year, and president, no focal defects, CN II-XII tested and intact, no tremors noted Psych: No acute distress, calm and cooperative during the exam Results & Data Results & Data ([facility]) Vital Signs (Past 12 Hours) Vital Signs Temp Pulse Resp BP Pulse Ox O2 Del Method O2 Flow Rate 01/17/23 12:30 93 H 19 93 Nasal Cannula 01/17/23 12:30 109/41 L 01/17/23 12:21 100 H 26 H 01/17/23 12:21 107/62 01/17/23 12:00 94 H 22 97 Nasal Cannula 01/17/23 12:00 115/92 01/17/23 11:55 91 H 20 99 Nebulizer 10 01/17/23 11:55 113/75 01/17/23 11:45 92 H 19 95 Nasal Cannula 01/17/23 11:30 93 H 20 94 Nasal Cannula 01/17/23 11:15 103 H 22 01/17/23 11:12 104 H 26 H 01/17/23 11:30 39.3 C H 91 H 17 99/62 L 92 Nasal Cannula 5 01/17/23 11:16 103 H Laboratory Results Abnormal lab results 01/17/23 01/17/23 01/17/23 Range/Units 11:34 11:34 11:34 WBC 15.36 H (4.8-10.8) K/ul RBC 3.73 L (4.20-5.40) M/uL Hgb 10.8 L (12.0-16.0) g/dl Hct 33.6 L (37.0-47.0) % RDW Std Deviation 47.5 H (36.4-46.3) fL Neut # (Auto) 13.30 H (1.40-6.50) K/uL Lymph # (Auto) 0.64 L (1.2-3.4) K/uL [place] # (Auto) 1.05 H (0.11-0.59) K/uL Carbon Dioxide 33 H (21-32) mmol/L Glucose 114 H (70-99(Fasting)) mg/dl Magnesium 1.3 L (1.7-2.4) mg/dl Troponin I High Sens 279.6 H* (0-14) pg/ml Procalcitonin 11.29 H (0-0.5) ng/ml Diagnostic Findings Chest X-Ray 01/17/23 11:22 SINGLE VIEW CHEST CLINICAL HISTORY: Sepsis. FINDINGS: An AP, portable, upright chest radiograph is compared to study dated 08/20/2017 and correlated with chest CT dated 10/01/2019. The patient is status post midline sternotomy. The heart is enlarged noting atherosclerotic calcification of the thoracic aorta. The pulmonary vasculature is noncongested. Emphysema and chronic interstitial thickening is similar to previous. There is dense airspace consolidation in the right upper lobe. Milder opacities are seen in the right lung base. Suspect a small right pleural effusion. No pneumothorax is seen. The skeletal structures are osteopenic. The bony thorax is grossly intact. IMPRESSION: 1. Cardiomegaly and emphysema with no radiographic evidence of congestive cy lure. 2. There is dense airspace consolidation in the right upper lobe typical for pneumonia. Clinical correlation will be required and radiographic follow-up to resolution is recommended. 3. Suspect a small right pleural effusion. ACT 112: Negative or not required by law. Electronically signed by: Slade Aranda M.D. 01/17/2023 11:57 AM ECG Additional Comments: Poor data quality, interpretation may be adversely affected Normal sinus rhythm Nonspecific T wave abnormality Abnormal ECG When compared with ECG of 08-AUG-2017 06:36, ND interval has decreased Vent. rate has increased BY 42 BPM Code Status & VTE Plan Code Status Full code VTE Prophylaxis Plan VTE Prophylaxis will be ordered: Yes Supervising Physician Co-Signing Physician Notes PA Supervision Note: I personally saw and examined the patient. I verified all harper points and agree with VENITA Jurado with the following exceptions and/or additions: Subjective: 77-year-old female past medical history significant for severe COPD and chronic hypoxic respiratory failure dependent on 3 L nasal cannula (FEV1: 46%), history of left upper lobectomy in 2017, CAD, hypertension presented to the ER for worsening weakness and shortness of breath which started on Monday. She notes that she did test positive for COVID-19 yesterday. She received IV Solu-Medrol and Tylenol on route. On presentation to the ER patient was noted to have a fever and mild tachycardia, with increased oxygen demand requiring 5 L nasal cannula. Lab work in the ER notable for WBC count of 15.36, hemoglobin 10.8, magnesium of 1.3, hsTroponin of 279.6, and procalcitonin of 11.29. Lactate normal. Urinalysis without evidence of infection. Chest x- ray shows evidence of right lung pneumonia, without clear evidence of pulmonary edema or pleural effusion. Patient was given a total of 1500 cc normal saline, IV magnesium sulfate, ceftriaxone, and azithromycin. Blood cultures were collected prior to antibiotics. She was also given an albuterol nebulizer. Hospitalist service was consulted for admission for sepsis secondary to community-acquired pneumonia and COVID-19, as well as COPD exacerbation. Physical exam: Vitals reviewed Gen: Alert and oriented, NAD HEENT: anicteric sclerae, EOMI CV: RRR no mgr nl S1S2 Pulm: CTAB no wcr Abd: +BS soft NT ND no masses Ext: no edema, 2+ DP pulses Skin: no rashes, warm/dry Neuro: No focal neurologic deficits Labs, Rads, and ECG reviewed Assessment and Plan: Sepsis and acute hypoxic respiratory failure secondary to community-acquired pneumonia: Presents with right focal lung consolidation suggestive of community- acquired pneumonia, in patient with chronic hypoxic respiratory failure. We will start empiric antibiotics cefepime/azithromycin (tolerated ceftriaxone without rash or reaction), MRSA nares ordered and will de-escalate antibiotics as able. Blood cultures ordered. COVID-19: Patient had positive test at home yesterday, repeat pending here. Given acute hypoxic respiratory failure will initiate remdesivir and IV steroids to cover for COVID-related illness. Isolation precautions. COPD, ? Exacerbation: Patient with history of COPD with baseline oxygen needs of 3LNC, has followed in the past with Dr. Fraire with pulmonology, last appointment in chart was in 2020. She has a history of a left upper lobectomy in 2017 due to suspicion for abscess. IV steroids as described above, Mucinex 1200 twice daily, with scheduled and as needed nebulizers. Continue montelukast, Symbicort, umeclidinium inhaler (or formulary equivalents). Flutter valve and incentive spirometry to assist with clearing secretions and improving lung volumes. Will need follow-up with pulmonology, either here in the hospital or close outpatient follow-up. Demand ischemia: Elevated troponin of 279.6 without baseline to compare in the setting of sepsis and acute hypoxic respiratory failure as described above. Patient does not complain of chest pain at this time. EKG performed today at 11 AM shows normal sinus rhythm with a heart rate of 100 bpm, no ND/QRS/QTc abnormalities. No ST elevations. We will trend troponins every 6 hours. Anemia: Chronic, with hemoglobin of 1011 since 2017, hemoglobin today of 10.8. No evidence of acute bleeding. Hypomagnesemia: Magnesium level of 1.3 on admission, given magnesium sulfate 1 g IV in the ER. Will give another gram on admission, with repeat magnesium tomorrow. Plan otherwise as stated above. PG Care Time/CCT Total # of Minutes Spent Total Time Spent with Patient: Total time spent is greater than 50% in coordination of care (as documented) at patient's floor/unit and/or counseling patient: C[place] [address] INT INP/OBS CARE 3/75MIN Patient Type Established Medical Decision Making High Complexity Diagnoses Acute on chronic respiratory failure with hypoxia J96.21 Elevated troponin R77.8 COVID-19 U07.1 COPD (chronic obstructive pulmonary disease) J44.9 Hypertension I10 CAD (coronary artery disease) I25.10 Hypomagnesemia E83.42 Hyperlipemia E78.5
[2023-01-17] MEDS ORDERED: MAGNESIUM SULFATE / D5W 1 GM/100 ML BAG IV STA (12:57)
[2023-01-17 12:58] LABS: Appearance Urine Clear (Clear); Bilirubin Urine Negative (Negative); Blood Urine Negative (Negative); Color Urine Yellow; Glucose Urine UA Negative (Negative); Ketones Urine Negative (Negative); Leukocyte Esterase Urine Negative (Negative); Nitrite Urine Negative (Negative); Protein Urine Negative (Negative); Specific Gravity Urine 1.012 (1.000-1.030); Urobilinogen Urine Negative (Negative)
[2023-01-17 13:24] LABS: Influenza A virus by PCR Negative (Neg); Influenza B virus by PCR Negative (Neg); RSV by PCR Negative (Neg)
[2023-01-17] MEDS ORDERED: guaiFENesin SUGAR FREE 200 MG/10 ML UDC PO SCH (13:30)
--- NOTE | 2023-01-17 14:00 | Electrocardiogram Report ---
Test Reason : Blood Pressure : / mmHG Vent. Rate : 100 BPM Atrial Rate : 100 BPM P-R Int : 160 ms QRS Dur : 088 ms QT Int : 358 ms P-R-T Axes : 026 -03 092 degrees QTc Int : 461 ms Poor data quality, interpretation may be adversely affected Normal sinus rhythm Nonspecific T wave abnormality Abnormal ECG When compared with ECG of 08-AUG-2017 06:36, NV interval has decreased Vent. rate has increased BY 42 BPM Confirmed by Dru Roque ([id number]) on 01/17/2023 2:00:29 PM Referred By: ED Confirmed By:Tulio Roque
[2023-01-17] MEDS ORDERED: REMDESIVIR 200 MG in SODIUM CHLORIDE 0.9% 210 ML IV STA (14:14)
[2023-01-17] MEDS ORDERED: ALBUT/IPRATROP 3MG/0.5MG NEB 3 ML VIAL NEB PRN (14:15)
[2023-01-17 14:21] LABS: SARS CoV2 RNA(COVID-19) Ceph POSITIVE (Negative)
[2023-01-17] MEDS ORDERED: IPRATROPIUM BROMIDE HFA INHALER INH STA (14:24)
[2023-01-17] MEDS ORDERED: oxyCODONE/ACETAMINOPHEN 5mg/325mg TAB PO PRN (14:41)
[2023-01-17] MEDS ORDERED: oxyCODONE/ACETAMINOPHEN 5mg/325mg TAB PO STA (14:46)
[2023-01-17] MEDS: ALBUT/IPRATROP 3MG/0.5MG NEB 3 ML VIAL NEB SCH ×2 (15:05→19:39)
[2023-01-17] MEDS ORDERED: FLUTICASONE/VILANTEROL 200/25MCG 14 PUFFS/INHALER INH SCH (15:15)
[2023-01-17] MEDS ORDERED: IPRATROPIUM BROMIDE HFA INHALER INH SCH (17:00)
[2023-01-17] MEDS: CEFEPIME 2,000 MG in SYRINGE 0 ML IV SCH (17:04)
[2023-01-17] MEDS: MAGNESIUM SULFATE / D5W 1 GM/100 ML BAG IV SCH ×2 (17:38→20:11)
[2023-01-17] MEDS: ASPIRIN 81 MG ECTAB PO SCH (17:42)
[2023-01-17] MEDS: METOPROLOL SUCC 50MG EXT REL TAB PO SCH (17:42)
[2023-01-17] MEDS: ENOXAPARIN INJ 40 MG/0.4 ML SYR SQ SCH (17:42)
[2023-01-17] MEDS ORDERED: PHENobarbital sodium 130 MG/ML VIAL ONE (19:00)
[2023-01-17] MEDS: FAMOTIDINE 20 MG TAB PO SCH (20:12)
[2023-01-17] MEDS: ATORVASTATIN 40 MG TAB PO SCH (20:12)
[2023-01-17] MEDS: PREGABALIN 150 MG CAP PO SCH (20:12)
[2023-01-17] MEDS: MAGNESIUM OXIDE 400 MG TAB PO SCH (20:12)
[2023-01-17] MEDS: guaiFENesin 600 MG TABCR PO SCH (20:12)
[2023-01-17] MEDS: oxyCODONE/ACETAMINOPHEN 10-325 TAB PO PRN (21:03)
[2023-01-18] MEDS: oxyCODONE/ACETAMINOPHEN 10-325 TAB PO PRN ×5 (01:12→21:00)
[2023-01-18] MEDS: CEFEPIME 2,000 MG in SYRINGE 0 ML IV SCH (05:07)
[2023-01-18] MEDS: ALBUT/IPRATROP 3MG/0.5MG NEB 3 ML VIAL NEB SCH ×4 (07:00→19:02)
[2023-01-18 07:21] LABS: Albumin Globulin Ratio 1.7 (0.9-2); Albumin Level 3.7 gm/dl (3.4-5.0); BUN Creatinine Ratio 18.7 (10-20); Bilirubin,Total 0.4 mg/dl (0.2-1.0); Calcium 9.2 mg/dl (8.5-10.1); Creatinine Clr Calc Pharmacy 69.3 ml/min; Est GFR (African American) 89.7 ml/min; Est GFR (Non-African American) 77.4 ml/min; Globulin 2.2 gm/dl (2.5-4.0); Magnesium 2.2 mg/dl (1.7-2.4); Potassium 4.3 mmol/L (3.5-5.1); Total Protein 5.9 gm/dl (6.0-8.3)
[2023-01-18 07:29] LABS: Troponin I High Sensitivity 776.7 pg/ml (0-14)
[2023-01-18 07:46] LABS: Hematocrit (blood only) 30.8 % (37.0-47.0); Mean Corpuscular Hemoglobin 29.2 pg (25.0-34.0); Mean Corpuscular Hgb Conc 32.5 g/dL (32.0-36.0); Mean Corpuscular Volume 90.1 fL (80.0-100.0); Mean Platelet Volume 10.3 fL (9.4-12.4); Platelet Count 226 K/uL (130-400); RDW Coefficient of Variation 14.6 % (11.5-14.5); RDW Standard Deviation 48.5 fL (36.4-46.3); Red Blood Count 3.42 M/uL (4.20-5.40); White Blood Count 30.44 K/ul (4.8-10.8)
[2023-01-18] MEDS ORDERED: NON-FORMULARY MEDICATION (Fluticasone-Umeclidin-Vilanter [Trelegy Ellipta] 200-62.5-25 mcg INH SCH (09:00)
[2023-01-18] MEDS ORDERED: FLUTICASONE/VILANTEROL 100/25MCG 14 PUFFS/INHALER INH SCH (09:00)
[2023-01-18] MEDS: UMECLIDINIUM/VILANTEROL 62.5/25MCG 7 PUFFS/INHALER INH SCH (09:02)
[2023-01-18] MEDS: METOPROLOL SUCC 50MG EXT REL TAB PO SCH (09:02)
[2023-01-18] MEDS: FLUTICASONE FUROATE 200MCG 14 PUFFS/INHALER INH SCH (09:02)
[2023-01-18] MEDS: POTASSIUM CHLORIDE CRTAB 20 MEQ TABCR PO SCH (09:03)
[2023-01-18] MEDS: guaiFENesin 600 MG TABCR PO SCH ×2 (09:03→21:00)
[2023-01-18] MEDS: MAGNESIUM OXIDE 400 MG TAB PO SCH ×2 (09:03→21:00)
[2023-01-18] MEDS: CLOPIDOGREL BISULFATE 75 MG TAB PO SCH (09:03)
[2023-01-18] MEDS: FAMOTIDINE 20 MG TAB PO SCH ×2 (09:03→21:00)
[2023-01-18] MEDS: allopurinoL 100 MG TAB PO SCH (09:04)
[2023-01-18] MEDS: ASPIRIN 81 MG ECTAB PO SCH (09:04)
[2023-01-18] MEDS: methylPREDNISolone 40 MG in SYRINGE 0 ML IV SCH (09:04)
[2023-01-18] MEDS: amLODIPine BESYLATE 5 MG TAB PO SCH (09:04)
[2023-01-18] MEDS: ESCITALOPRAM OXALATE 20 MG TAB PO SCH (09:04)
[2023-01-18] MEDS: PREGABALIN 150 MG CAP PO SCH ×3 (09:22→20:59)
--- NOTE | 2023-01-18 10:43 | XCELERA ---
[id number]
[2023-01-18] MEDS: REMDESIVIR 100 MG in SODIUM CHLORIDE 0.9% 230 ML IV SCH (11:32)
[2023-01-18] MEDS ORDERED: ALBUTEROL HFA 8 GM INHALER INH PRN (11:35)
[2023-01-18] MEDS: cefTRIAXone SODIUM 2,000 MG in DEXTROSE 5% 50 ML IV SCH (12:32)
--- NOTE | 2023-01-18 12:36 | Hospitalist Progress Note ---
Date of Service January 18, 2023 Assessment & Plan (1) Acute on chronic respiratory failure with hypoxia: Plan: -Admitted to the hospital on account of worsening SOB -Has a hx of COPD, on 3L of oxygen at home -Found to have COVID 19 PNA, with possible bacterial PNA -Chest x ray showed evidence of PNA -Blood cultures obtained -She was empirically started on Ceftriaxone and Azithromycin -Also Remdesivir and solumedrol -Continue supplemental oxygen -Monitor cultures (2) Elevated troponin: Plan: Myocardial infarction type 2 -Likely due to demand at this time from her acute illness and hypoxia -Patient does have multiple risk factors for ACS with previous coronary artery stenting -Continue to monitor high sensitivity trop q6h until it begins to trend down -Continue aspirin and plavix (3) COVID-19: Plan: -See acute on chronic hypoxic respiratory failure (4) COPD (chronic obstructive pulmonary disease): Plan: -See acute on chronic hypoxic respiratory failure (5) Hypertension: Plan: -Stable -Hold amlodipine for now with soft BPs -Continue metoprolol for now (6) CAD (coronary artery disease): Plan: -Continue aspirin and plavix (7) Hypomagnesemia: Plan: -replete (8) Hyperlipemia: Plan: -Continue statin Plan continue hospitalzation Admission and Anticipated Discharge Date Admission Date: January 17, 2023 Subjective patient seen and examined, feels better, still has some dry cough Review of Systems Review of Systems: All systems reviewed are negative, apart from the ones contained in the history. Physical Exam Physical Exam: The patient is awake, alert and oriented 3, well developed and well nourished, normocephalic and atraumatic, lying in bed and in no acute distress. HEENT--PERRL, EOMI, mucous membranes and oropharynx mildly dry Neck--supple. No JVD. No bruits. Thyroid normal, trachea midline, no adenopathy. Heart--normal S1 and S2. No murmurs, rubs or gallops. Lungs--Reduced air entry on auscultation Abdomen--normal bowel sounds and soft. Mild epigastric and left sided abdominal pain Extremities--no cyanosis or clubbing. No edema. Dermatologic--normal skin turgor, normal color, no abnormal lymph nodes, no rash. Neurologic--cranial nerves II through XII grossly intact. Rheumatologic--normal range of motion. Psychiatric--normal affect. Results & Data Results & Data ([facility]) Vital Signs (Past 12 Hours) Vital Signs Temp Pulse Pulse Resp BP Pulse Ox O2 Del Method 01/18/23 12:27 97.9 F 70 18 125/70 93 Nasal Cannula 01/18/23 09:48 60 01/18/23 09:44 Nasal Cannula 01/18/23 09:28 74 18 98 Nasal Cannula 01/18/23 07:58 98.2 F 70 20 120/74 94 Nasal Cannula 01/18/23 06:58 78 18 94 Nasal Cannula 01/18/23 03:02 98.1 F 65 20 115/70 97 Nasal Cannula O2 Flow Rate 01/18/23 12:27 3.0 01/18/23 09:48 01/18/23 09:44 3 01/18/23 09:28 3 01/18/23 07:58 3 01/18/23 06:58 3 01/18/23 03:02 3 PG Care Time/CCT Total # of Minutes Spent Total Time Spent with Patient: Total time spent is greater than 50% in coordination of care (as documented) at patient's floor/unit and/or counseling patient: Coding Level of Care Code 81627 SUB INP/OBS CARE 2/35MIN Diagnoses Acute on chronic respiratory failure with hypoxia J96.21 Elevated troponin R77.8 COVID-19 U07.1 COPD (chronic obstructive pulmonary disease) J44.9 Hypertension I10 CAD (coronary artery disease) I25.10 Hypomagnesemia E83.42 Hyperlipemia E78.5 Time Spent (min) 35
[2023-01-18] MEDS: AZITHROMYCIN 250 MG in DEXTROSE 5% 250 ML IV SCH ×2 (13:21→13:22)
[2023-01-18] MEDS: ENOXAPARIN INJ 40 MG/0.4 ML SYR SQ SCH (17:01)
[2023-01-18] MEDS: ATORVASTATIN 40 MG TAB PO SCH (21:00)
[2023-01-19] MEDS: oxyCODONE/ACETAMINOPHEN 10-325 TAB PO PRN ×4 (06:27→20:09)
[2023-01-19 07:05] LABS: Albumin Globulin Ratio 1.4 (0.9-2); Albumin Level 3.8 gm/dl (3.4-5.0); BUN Creatinine Ratio 20.8 (10-20); Bilirubin,Total 0.3 mg/dl (0.2-1.0); Calcium 9.5 mg/dl (8.5-10.1); Creatinine Clr Calc Pharmacy 67.5 ml/min; Est GFR (African American) 86.9 ml/min; Globulin 2.8 gm/dl (2.5-4.0); Magnesium 2.1 mg/dl (1.7-2.4); Potassium 4.1 mmol/L (3.5-5.1); Total Protein 6.6 gm/dl (6.0-8.3)
[2023-01-19 07:06] LABS: Hematocrit (blood only) 30.7 % (37.0-47.0); Hemoglobin 9.9 g/dl (12.0-16.0); Mean Corpuscular Hemoglobin 28.8 pg (25.0-34.0); Mean Corpuscular Hgb Conc 32.2 g/dL (32.0-36.0); Mean Corpuscular Volume 89.2 fL (80.0-100.0); Mean Platelet Volume 10.5 fL (9.4-12.4); Platelet Count 267 K/uL (130-400); RDW Coefficient of Variation 14.6 % (11.5-14.5); RDW Standard Deviation 47.1 fL (36.4-46.3); Red Blood Count 3.44 M/uL (4.20-5.40); White Blood Count 25.62 K/ul (4.8-10.8)
[2023-01-19] MEDS: ALBUT/IPRATROP 3MG/0.5MG NEB 3 ML VIAL NEB SCH ×4 (07:26→19:34)
[2023-01-19] MEDS: allopurinoL 100 MG TAB PO SCH (07:49)
[2023-01-19] MEDS: PREGABALIN 150 MG CAP PO SCH ×3 (07:49→20:09)
[2023-01-19] MEDS: methylPREDNISolone 40 MG in SYRINGE 0 ML IV SCH (07:49)
[2023-01-19] MEDS: MAGNESIUM OXIDE 400 MG TAB PO SCH ×2 (07:50→20:09)
[2023-01-19] MEDS: ASPIRIN 81 MG ECTAB PO SCH (07:50)
[2023-01-19] MEDS: CLOPIDOGREL BISULFATE 75 MG TAB PO SCH (07:50)
[2023-01-19] MEDS: amLODIPine BESYLATE 5 MG TAB PO SCH (07:50)
[2023-01-19] MEDS: POTASSIUM CHLORIDE CRTAB 20 MEQ TABCR PO SCH (07:50)
[2023-01-19] MEDS: ESCITALOPRAM OXALATE 20 MG TAB PO SCH (07:50)
[2023-01-19] MEDS: guaiFENesin 600 MG TABCR PO SCH ×2 (07:50→20:09)
[2023-01-19] MEDS: METOPROLOL SUCC 50MG EXT REL TAB PO SCH (07:51)
[2023-01-19] MEDS: ENOXAPARIN INJ 40 MG/0.4 ML SYR SQ SCH ×2 (07:51→20:09)
[2023-01-19] MEDS: FAMOTIDINE 20 MG TAB PO SCH ×2 (07:51→20:09)
[2023-01-19] MEDS: FLUTICASONE FUROATE 200MCG 14 PUFFS/INHALER INH SCH (07:52)
[2023-01-19] MEDS: UMECLIDINIUM/VILANTEROL 62.5/25MCG 7 PUFFS/INHALER INH SCH (07:52)
--- NOTE | 2023-01-19 11:05 | Electrocardiogram Report ---
Test Reason : Blood Pressure : / mmHG Vent. Rate : 065 BPM Atrial Rate : 065 BPM P-R Int : 188 ms QRS Dur : 088 ms QT Int : 468 ms P-R-T Axes : 037 039 071 degrees QTc Int : 486 ms Normal sinus rhythm T wave abnormality, consider anterior ischemia Prolonged QT Abnormal ECG When compared with ECG of 17-JAN-2023 11:14, Vent. rate has decreased BY 35 BPM T wave inversion now evident in Anterior leads Nonspecific T wave abnormality no longer evident in Lateral leads Confirmed by Dru Roque ([id number]) on 01/19/2023 11:05:24 AM Referred By: REFERRED SELF Confirmed By:Tulio Roque
[2023-01-19] MEDS: REMDESIVIR 100 MG in SODIUM CHLORIDE 0.9% 230 ML IV SCH (12:30)
--- NOTE | 2023-01-19 13:40 | Hospitalist Progress Note ---
Date of Service January 19, 2023 Assessment & Plan (1) Acute on chronic respiratory failure with hypoxia: Plan: -Admitted to the hospital on account of worsening SOB -Has a hx of COPD, on 3L of oxygen at home -Found to have COVID 19 PNA, with possible bacterial PNA -Chest x ray showed evidence of lobar consolidation suggestive of PNA -Blood cultures obtained, negative so far -We will ontinue empiric Ceftriaxone and Azithromycin -Also Remdesivir and solumedrol -Continue supplemental oxygen -Monitor cultures -SOB is a little better today (2) Elevated troponin: Plan: Myocardial infarction type 2 -Likely due to demand at this time from her acute illness and hypoxia -Patient does have multiple risk factors for ACS with previous coronary artery stenting -Continue to monitor high sensitivity trop q6h until it begins to trend down -Continue aspirin and plavix and Lovenox 40mg BID (3) COVID-19: Plan: -See acute on chronic hypoxic respiratory failure (4) COPD (chronic obstructive pulmonary disease): Plan: -See acute on chronic hypoxic respiratory failure (5) Hypertension: Plan: -Stable -Hold amlodipine for now with soft BPs -Continue metoprolol for now (6) CAD (coronary artery disease): Plan: -Continue aspirin and plavix (7) Hypomagnesemia: Plan: -replete (8) Hyperlipemia: Plan: -Continue statin Plan continue hospitalzation Admission and Anticipated Discharge Date Admission Date: January 17, 2023 Subjective patient seen and examined, feels better, still has some dry cough and worried about her heart enzymes Review of Systems Review of Systems: All systems reviewed are negative, apart from the ones contained in the history. Physical Exam Physical Exam: The patient is awake, alert and oriented 3, well developed and well nourished, normocephalic and atraumatic, lying in bed and in no acute distress. HEENT--PERRL, EOMI, mucous membranes and oropharynx mildly dry Neck--supple. No JVD. No bruits. Thyroid normal, trachea midline, no adenopathy. Heart--normal S1 and S2. No murmurs, rubs or gallops. Lungs--Reduced air entry on auscultation Abdomen--normal bowel sounds and soft. Mild epigastric and left sided abdominal pain Extremities--no cyanosis or clubbing. No edema. Dermatologic--normal skin turgor, normal color, no abnormal lymph nodes, no rash. Neurologic--cranial nerves II through XII grossly intact. Rheumatologic--normal range of motion. Psychiatric--normal affect. Results & Data Results & Data ([facility]) Vital Signs (Past 12 Hours) Vital Signs Temp Pulse Pulse Resp BP Pulse Ox O2 Del Method 01/19/23 11:45 78 20 94 Nasal Cannula 01/19/23 07:44 98.2 F 75 18 152/75 H 95 Nasal Cannula 01/19/23 08:07 Nasal Cannula 01/19/23 07:26 68 16 94 Nasal Cannula 01/19/23 07:25 93 H 01/19/23 02:00 98.2 F 70 18 134/75 97 Nasal Cannula O2 Flow Rate 01/19/23 11:45 2 01/19/23 07:44 3 01/19/23 08:07 3 01/19/23 07:26 2 01/19/23 07:25 01/19/23 02:00 3 PG Care Time/CCT Total # of Minutes Spent Total Time Spent with Patient: Total time spent is greater than 50% in coordination of care (as documented) at patient's floor/unit and/or counseling patient: Coding Level of Care Code 25434 SUB INP/OBS CARE 2/35MIN Diagnoses Acute on chronic respiratory failure with hypoxia J96.21 Elevated troponin R77.8 COVID-19 U07.1 COPD (chronic obstructive pulmonary disease) J44.9 Hypertension I10 CAD (coronary artery disease) I25.10 Hypomagnesemia E83.42 Hyperlipemia E78.5 Time Spent (min) 35
[2023-01-19] MEDS: cefTRIAXone SODIUM 2,000 MG in DEXTROSE 5% 50 ML IV SCH (13:42)
[2023-01-19] MEDS: ATORVASTATIN 40 MG TAB PO SCH (20:09)
[2023-01-20] MEDS: oxyCODONE/ACETAMINOPHEN 10-325 TAB PO PRN ×5 (03:06→20:41)
[2023-01-20] MEDS: ALBUT/IPRATROP 3MG/0.5MG NEB 3 ML VIAL NEB SCH ×4 (07:19→19:09)
[2023-01-20] MEDS: MAGNESIUM OXIDE 400 MG TAB PO SCH ×2 (08:00→20:43)
[2023-01-20] MEDS: amLODIPine BESYLATE 5 MG TAB PO SCH ×2 (08:00→08:04)
[2023-01-20] MEDS: FLUTICASONE FUROATE 200MCG 14 PUFFS/INHALER INH SCH (08:01)
[2023-01-20] MEDS: UMECLIDINIUM/VILANTEROL 62.5/25MCG 7 PUFFS/INHALER INH SCH (08:01)
[2023-01-20] MEDS: ENOXAPARIN INJ 40 MG/0.4 ML SYR SQ SCH ×2 (08:20→20:43)
[2023-01-20] MEDS: POTASSIUM CHLORIDE CRTAB 20 MEQ TABCR PO SCH (08:20)
[2023-01-20] MEDS: METOPROLOL SUCC 50MG EXT REL TAB PO SCH (08:21)
[2023-01-20] MEDS: guaiFENesin 600 MG TABCR PO SCH ×2 (08:21→20:43)
[2023-01-20] MEDS: PREGABALIN 150 MG CAP PO SCH ×3 (08:21→20:49)
[2023-01-20] MEDS: FAMOTIDINE 20 MG TAB PO SCH ×2 (08:22→20:43)
[2023-01-20] MEDS: allopurinoL 100 MG TAB PO SCH (08:22)
[2023-01-20] MEDS: ASPIRIN 81 MG ECTAB PO SCH (08:22)
[2023-01-20] MEDS: methylPREDNISolone 40 MG in SYRINGE 0 ML IV SCH (08:22)
[2023-01-20] MEDS: CLOPIDOGREL BISULFATE 75 MG TAB PO SCH (08:22)
[2023-01-20] MEDS: ESCITALOPRAM OXALATE 20 MG TAB PO SCH (08:22)
[2023-01-20 09:39] LABS: Albumin Globulin Ratio 1.5 (0.9-2); BUN Creatinine Ratio 21.3 (10-20); Bilirubin,Total 0.4 mg/dl (0.2-1.0); Calcium 9.5 mg/dl (8.5-10.1); Est GFR (African American) 89.7 ml/min; Est GFR (Non-African American) 77.4 ml/min; Globulin 2.6 gm/dl (2.5-4.0); Magnesium 2.1 mg/dl (1.7-2.4); Total Protein 6.6 gm/dl (6.0-8.3)
[2023-01-20 09:45] LABS: Hematocrit (blood only) 31.8 % (37.0-47.0); Hemoglobin 10.4 g/dl (12.0-16.0); Mean Corpuscular Hemoglobin 28.7 pg (25.0-34.0); Mean Corpuscular Hgb Conc 32.7 g/dL (32.0-36.0); Mean Corpuscular Volume 87.8 fL (80.0-100.0); Mean Platelet Volume 10.5 fL (9.4-12.4); Platelet Count 256 K/uL (130-400); RDW Coefficient of Variation 14.5 % (11.5-14.5); RDW Standard Deviation 46.8 fL (36.4-46.3); Red Blood Count 3.62 M/uL (4.20-5.40); White Blood Count 12.39 K/ul (4.8-10.8)
--- NOTE | 2023-01-20 10:19 | Pulmonary Consultation ---
Date of Consultation January 20, 2023 Assessment & Plan (1) Pneumonia: Resolving with antibiotics. Recommended total course of 7 days. Can transition to p.o. MRSA screen negative. Laterality: right Lung location: upper lobe of lung Pneumonia type: due to unspecified organism Qualified Code(s): J18.9 - Pneumonia, unspecified organism (2) Acute hypoxemic respiratory failure: She is back to her baseline oxygen needs. (3) Tobacco abuse: Complete cessation advised. Patient has evidence of asthma and COPD overlap. She does have some mild expiratory wheeze. Continue oral corticosteroids for total 5 to 7 days. Patient will need follow-up in the pulmonary clinic with a repeat x-ray in approximately 6 weeks. (4) COVID-19: Likely an incidental finding. Recommend discontinuing remdesivir. Plan Patient can likely be discharged home tomorrow. No further recommendations from pulmonary. Please call with questions. History of Present Illness Reason for Consultation: Pneumonia Attending Physician: Gavin Cabello MD History of Present Illness Prior pulmonary notes, H&P, imaging, discharge summary reviewed. History obtained from patient. 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 She was found to have a fever on admission. Chest x-ray revealed a large right upper lobe infiltrate. She also tested positive for COVID-19. Oxygen requirements improved. During his hospitalization he is currently on room air. White count is also improved dramatically from 30,000-12,000. She is currently on azithromycin, remdesivir, methylprednisolone 40 mg daily and ceftriaxone. She notes that she is chronically on 3 L of oxygen. She is currently on 2 L of oxygen and saturating in the high 90s. She notes that her symptoms started abruptly several days ago with increased cough and low-grade fever. She also had increased shortness of breath with exertion. She is maintained on Trelegy as an outpatient for asthma and COPD Echo 01/18/2023 with grade 2 diastolic dysfunction. Left ventricular function and motion is normal. Patient had evidence of demand ischemia on admission with elevated troponins. Last CT chest was at [facility] 2019 which revealed no acute pulm emboli. Interval development of interstitial edema more pronounced at the bases. Allergies Allergy/AdvReac Type Severity Reaction Status Date / Time cephalexin Allergy Mild Hives Verified 01/17/23 14:21 adhesive Allergy Unknown RASH Verified 01/17/23 14:21 Penicillins Allergy Unknown HIVES WITH Verified 01/17/23 14:21 AMOXICILLIN Sulfa (Sulfonamide Allergy Unknown . Verified 01/17/23 14:21 Antibiotics) vancomycin Allergy Unknown RASH Verified 01/17/23 14:21 metoclopramide AdvReac Unknown DELIRIUM Verified 01/17/23 14:21 oxycodone AdvReac Unknown itchy TO Verified 01/17/23 14:21 ROXICET. Takes oxycodone at home. Home Medications Medication Instructions Recorded Confirmed Type albuterol sulfate 90 mcg/actuation 2 puffs inhalation Q4H PRN 09/23/19 01/17/23 History aerosol inhaler (Ventolin HFA) Shortness Of Breath Or Wheezing aspirin 81 mg tablet,delayed 81 mg PO DAILY 09/23/19 01/17/23 History release (Adult Low Dose Aspirin) magnesium oxide 400 mg (241.3 mg 400 mg PO BID 09/23/19 01/17/23 History magnesium) tablet montelukast 10 mg tablet 10 mg PO DAILY 05/06/21 01/17/23 History allopurinol 100 mg tablet 100 mg PO DAILY 01/17/23 01/17/23 History atorvastatin 40 mg tablet 40 mg PO HS 01/17/23 01/17/23 History budesonide-formoterol HFA 160 2 puff inhalation BID 01/17/23 01/17/23 History mcg-4.5 mcg/actuation aerosol inhaler (Symbicort) cholecalciferol (vitamin D3) 125 125 mcg PO DAILY 01/17/23 01/17/23 History mcg (5,000 unit) tablet (Vitamin D3) clopidogrel 75 mg tablet 75 mg PO DAILY 01/17/23 01/17/23 History escitalopram oxalate 20 mg tablet 20 mg PO DAILY 01/17/23 01/17/23 History famotidine 20 mg tablet 20 mg PO BID 01/17/23 01/17/23 History fluticasone fur. 200 mcg-umeclid 1 ea inhalation DAILY 01/17/23 01/17/23 History 62.5 mcg-vilant 25 mcg inhalat.powder (Trelegy Ellipta) furosemide 40 mg tablet 20 - 40 mg PO DAILY PRN Edema 01/17/23 01/17/23 History ipratropium bromide 17 2 puff inhalation QID 01/17/23 01/17/23 History mcg/actuation HFA aerosol inhaler (Atrovent HFA) meclizine 25 mg tablet 25 mg PO TID PRN .dizzy 01/17/23 01/17/23 History metoprolol succinate 50 mg 50 mg PO DAILY 01/17/23 01/17/23 History tablet,extended release 24 hr nirmatrelvir 150 mg-ritonavir 100 1 ea PO BID 01/17/23 01/17/23 History mg tablets in a dose pack (EUA) (Paxlovid) oxycodone-acetaminophen 10 mg-325 1 tab PO Q4 PRN Pain 01/17/23 01/17/23 History mg tablet potassium chloride 20 mEq 20 meq PO DAILY 01/17/23 01/17/23 History tablet,extended release(part/cryst) pregabalin 150 mg capsule 150 mg PO TID 01/17/23 01/17/23 History Patient History Medical History COPD (chronic obstructive pulmonary disease) Heart disease Hypertension Lumbar stenosis with neurogenic claudication Surgical History S/P lobectomy of lung Social History Smoking Status: Former smoker Tobacco Type: Cigarettes Smoking End Date: 2016; Hx Alcohol Use: No Hx Substance Use: No Preferred Language: Tamaz[place] Communication Ability: Effective Rehabilitation Case Coordinator Required: No Beliefs That Will Affect Care: None Current Living Situation: Spouse Other Information That Helps Us Care for You: No Feels Safe at Home: Yes Safety Concerns: Feels Safe At This Time Assistive Devices: Cane and Oxygen - Continuous Review of Systems Review of Systems: All systems reviewed & are unremarkable except as noted in HPI & below Physical Exam Physical Exam: Constitutional: Patient appears to be of their stated age. Patient is in no apparent distress. Patient is well-developed. Eyes: Pupils are equal round and reactive to light. Conjunctivae are normal. Anicteric sclera. Ears nose, mouth and throat: Mallampati class 2. Normal posterior oropharynx. Uvula is midline. Neck: Trachea is midline. Visual inspection is normal. Respiratory: Mild bilateral expiratory wheeze with prolonged phase of exhalation. Cardiovascular: Regular rate and rhythm. No murmurs. No edema. Gastrointestinal: Normal bowel sounds, soft, nontender and nondistended. No hepatosplenomegaly noted. Musculoskeletal: No cyanosis. Patient is able to move all extremities. Skin: No rashes, warm dry and intact. Neurologic: No obvious focal neurological deficits seen. Psychiatric: Alert and oriented x3 with a euthymic affect. Results & Data Results & Data ([facility]) Vital Signs (Past 12 Hours) Vital Signs Temp Pulse Pulse Resp BP Pulse Ox O2 Del Method 01/20/23 07:44 36 C L 66 16 171/75 H 98 Room Air 01/20/23 07:40 59 L 01/20/23 02:37 36.6 C 69 18 157/76 H 96 Nasal Cannula 01/19/23 23:12 36.9 C 68 16 145/74 H 96 Nasal Cannula 01/19/23 22:47 65 O2 Flow Rate 01/20/23 07:44 01/20/23 07:40 01/20/23 02:37 2 01/19/23 23:12 2 01/19/23 22:47 PG Care Time/CCT Total # of Minutes Spent Total Time Spent with Patient: Total time spent is greater than 50% in coordination of care (as documented) at patient's floor/unit and/or counseling patient: Coding Level of Care Code 82079 INT INP/OBS CARE 3/75MIN Diagnoses Pneumonia J18.9 Laterality: right Lung location: upper lobe of lung Pneumonia type: due to unspecified organism Acute hypoxemic respiratory failure J96.01 Tobacco abuse Z72.0 COVID-19 U07.1
--- NOTE | 2023-01-20 11:04 | XRay Report ---
XR chest 1V portable CLINICAL HISTORY: follow up pneumonia COMPARISON STUDY: Chest CT October 01, 2019. Chest radiograph January 17, 2023. FINDINGS: Cardiomegaly is unchanged. There are median sternotomy wires. No pneumothorax is present. T here is a possible trace right pleural effusion. Right lung airspace opacity has moderately improved since prior exam. No new sites of consolidation are present. There is pulmonary vascular congestion w ithout overt pulmonary edema. IMPRESSION: Moderate improvement in right lung pneumonia. ACT 112: Negative or not required by law. Electronically signed by: Hung Hebert M.D. 01/20/2023 11:03 AM
--- NOTE | 2023-01-20 11:43 | Hospitalist Progress Note ---
Date of Service January 20, 2023 Assessment & Plan (1) Acute on chronic respiratory failure with hypoxia: Plan: -Admitted to the hospital on account of worsening SOB -Has a hx of COPD, on 3L of oxygen at home -Found to have COVID 19 PNA, with possible bacterial PNA -Chest x ray showed evidence of lobar consolidation suggestive of PNA -Blood cultures obtained, negative so far -We will discontinue empiric Ceftriaxone and Azithromycin -Per Pulmonology, will discontinue Remdesivir and Solumedrol (2) Elevated troponin: Plan: Myocardial infarction type 2 -Likely due to demand at this time from her acute illness and hypoxia -Patient does have multiple risk factors for ACS with previous coronary artery stenting -Continue to monitor high sensitivity trop q6h until it begins to trend down -Continue aspirin and plavix and Lovenox 40mg BID (3) COVID-19: Plan: -See acute on chronic hypoxic respiratory failure -Per pulmonology, probably an incidental finding (4) COPD (chronic obstructive pulmonary disease): Plan: -See acute on chronic hypoxic respiratory failure (5) Hypertension: Plan: -Stable -Hold amlodipine for now with soft BPs -Continue metoprolol for now (6) CAD (coronary artery disease): Plan: -Continue aspirin and plavix (7) Hypomagnesemia: Plan: -replete (8) Hyperlipemia: Plan: -Continue statin Plan continue hospitalzation Admission and Anticipated Discharge Date Admission Date: January 17, 2023 Subjective patient seen and examined, feels better, but still some SOb especially on ambulation Review of Systems Review of Systems: All systems reviewed are negative, apart from the ones contained in the history. Physical Exam Physical Exam: The patient is awake, alert and oriented 3, well developed and well nourished, normocephalic and atraumatic, lying in bed and in no acute distress. HEENT--PERRL, EOMI, mucous membranes and oropharynx mildly dry Neck--supple. No JVD. No bruits. Thyroid normal, trachea midline, no adenopathy. Heart--normal S1 and S2. No murmurs, rubs or gallops. Lungs--Reduced air entry on auscultation Abdomen--normal bowel sounds and soft. Mild epigastric and left sided abdominal pain Extremities--no cyanosis or clubbing. No edema. Dermatologic--normal skin turgor, normal color, no abnormal lymph nodes, no rash. Neurologic--cranial nerves II through XII grossly intact. Rheumatologic--normal range of motion. Psychiatric--normal affect. Results & Data Results & Data ([facility]) Vital Signs (Past 12 Hours) Vital Signs Temp Pulse Pulse Resp BP Pulse Ox O2 Del Method 01/20/23 11:06 60 20 98 Nasal Cannula 01/20/23 09:30 Nasal Cannula 01/20/23 07:44 96.8 F L 66 16 171/75 H 98 Room Air 01/20/23 07:40 59 L 01/20/23 02:37 97.9 F 69 18 157/76 H 96 Nasal Cannula O2 Flow Rate 01/20/23 11:06 2 01/20/23 09:30 3 01/20/23 07:44 01/20/23 07:40 01/20/23 02:37 2 PG Care Time/CCT Total # of Minutes Spent Total Time Spent with Patient: Total time spent is greater than 50% in coordination of care (as documented) at patient's floor/unit and/or counseling patient: Coding Level of Care Code 95694 SUB INP/OBS CARE 2/35MIN Diagnoses Acute on chronic respiratory failure with hypoxia J96.21 Elevated troponin R77.8 COVID-19 U07.1 COPD (chronic obstructive pulmonary disease) J44.9 Hypertension I10 CAD (coronary artery disease) I25.10 Hypomagnesemia E83.42 Hyperlipemia E78.5 Time Spent (min) 35
[2023-01-20] MEDS: REMDESIVIR 100 MG in SODIUM CHLORIDE 0.9% 230 ML IV SCH (11:48)
[2023-01-20] MEDS: cefTRIAXone SODIUM 2,000 MG in DEXTROSE 5% 50 ML IV SCH (12:53)
[2023-01-20] MEDS: AZITHROMYCIN 250 MG in DEXTROSE 5% 250 ML IV SCH (13:20)
[2023-01-20] MEDS ORDERED: lisinopril 10 MG TAB PO ONE (15:39)
[2023-01-20] MEDS ORDERED: lisinopril 5 MG TAB PO ONE (15:39)
[2023-01-20] MEDS ORDERED: CALCIUM CARBONATE 500 MG CHEWABLE TAB PO PRN (15:40)
[2023-01-20] MEDS: ATORVASTATIN 40 MG TAB PO SCH (20:43)
[2023-01-21] MEDS: oxyCODONE/ACETAMINOPHEN 10-325 TAB PO PRN ×3 (01:40→13:29)
[2023-01-21] MEDS: ALBUT/IPRATROP 3MG/0.5MG NEB 3 ML VIAL NEB SCH ×3 (07:08→14:56)
[2023-01-21 07:33] LABS: Hemoglobin 9.5 g/dl (12.0-16.0); Mean Corpuscular Hemoglobin 28.7 pg (25.0-34.0); Mean Corpuscular Hgb Conc 32.8 g/dL (32.0-36.0); Mean Corpuscular Volume 87.6 fL (80.0-100.0); Mean Platelet Volume 10.6 fL (9.4-12.4); Platelet Count 238 K/uL (130-400); RDW Coefficient of Variation 14.4 % (11.5-14.5); RDW Standard Deviation 46.2 fL (36.4-46.3); Red Blood Count 3.31 M/uL (4.20-5.40); White Blood Count 9.26 K/ul (4.8-10.8)
[2023-01-21 07:39] LABS: BUN Creatinine Ratio 22.2 (10-20); Calcium 9.1 mg/dl (8.5-10.1); Creatinine Clr Calc Pharmacy 72.8 ml/min; Est GFR (African American) 94.3 ml/min; Est GFR (Non-African American) 81.3 ml/min; Potassium 3.9 mmol/L (3.5-5.1)
[2023-01-21] MEDS: guaiFENesin 600 MG TABCR PO SCH (08:40)
[2023-01-21] MEDS: PREGABALIN 150 MG CAP PO SCH ×2 (08:40→14:18)
[2023-01-21] MEDS: POTASSIUM CHLORIDE CRTAB 20 MEQ TABCR PO SCH (08:40)
[2023-01-21] MEDS: MAGNESIUM OXIDE 400 MG TAB PO SCH (08:41)
[2023-01-21] MEDS: ENOXAPARIN INJ 40 MG/0.4 ML SYR SQ SCH (08:41)
[2023-01-21] MEDS: CLOPIDOGREL BISULFATE 75 MG TAB PO SCH (08:41)
[2023-01-21] MEDS: FAMOTIDINE 20 MG TAB PO SCH (08:41)
[2023-01-21] MEDS: METOPROLOL SUCC 50MG EXT REL TAB PO SCH (08:42)
[2023-01-21] MEDS: FLUTICASONE FUROATE 200MCG 14 PUFFS/INHALER INH SCH (08:42)
[2023-01-21] MEDS: ESCITALOPRAM OXALATE 20 MG TAB PO SCH (08:42)
[2023-01-21] MEDS: ASPIRIN 81 MG ECTAB PO SCH (08:43)
[2023-01-21] MEDS: allopurinoL 100 MG TAB PO SCH (08:43)
[2023-01-21] MEDS: UMECLIDINIUM/VILANTEROL 62.5/25MCG 7 PUFFS/INHALER INH SCH (08:43)
[2023-01-21] MEDS ORDERED: predniSONE 20 MG TAB PO SCH (09:00)
[2023-01-21] MEDS ORDERED: lisinopril 5 MG TAB PO SCH (09:00)
[2023-01-21] MEDS ORDERED: lisinopril 10 MG TAB PO SCH (09:00)
[2023-01-21] MEDS: cefTRIAXone SODIUM 2,000 MG in DEXTROSE 5% 50 ML IV SCH (12:46)
[2023-01-21] MEDS: REMDESIVIR 100 MG in SODIUM CHLORIDE 0.9% 230 ML IV SCH (12:50)
--- NOTE | 2023-01-21 13:44 | Discharge Summary ---
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 IN the ED the patient was found to be febrile at 39.3, hemodynamically stable, and stable on 5L NC. Per the ED staff, the patient tested positive for Covid with a home test yesterday. Today she called EMS who found her to be hypoxic on 3L NC in the 80's, which improved after increased her O2 to 6L NC. In route to the ED the patient was given 125 mg IV solu-Medrol and 1000 mg IV tylenol. Labs were remarkable for a leukocytosis of 15 with left shift of 13, stable Hgb and platelets, stable cr at 0.9, mag of 1.3 otherwise stable electrolytes, AG of 5 with bicarb of 33, glucose of 144, initial high sensitivity trop of 279 with procal of 11, and clean UA. Chest xray was read as "1. Cardiomegaly and emphysema with no radiographic evidence of congestive failure. 2. There is dense airspace consolidation in the right upper lobe typical for pneumonia. Clinical correlation will be required and radiographic follow-up to resolution is recommended. 3. Suspect a small right pleural effusion.". Prior to admission the patient was given one dose of ceftriaxone, a dose of azithromycin, 1 mg IV magnesium, an albuterol treatment, and 2 L NSS bolus. At the time of the exam the patient was resting in bed in no acute distress with her and daughter sitting bedside. She explains that she was in her normal state of health until yesterday when she began to develop a productive cough with yellow sputum, increased SOB compared to baseline, and generalized weakness. She explains that she normally wears 3L NC at home at all times and 2L NC with her portable oxygen machine when she leaves the house. She was unable to take any of her oral or COPD medications this morning due to her acute illness. At baseline she is normally able to ambulate well without the use of a walker or a can. Today she felt generally weak all over with her legs feeling very weak. She sat on the toilet and had difficult getting up this morning due to her weakness. She states that she test positive for covid yesterday at home. Her son recently tested positive for covid and was given a prescription for Paxlovid but stopped taking it due to it's foul taste. She and her explained that she did take 3 doses of Paxlovid between yesterday and today. She has an extensive cardiac history including open heart surgery in 2009 for removal of her atrial myxoma. She states that she has had 3 total stent placed, 2 in 2009 and one in 2020 but is unsure of the location of the stents. She confirms that she has been without chest pain or discomfort since her symptoms began yesterday. When asked, she states that she quit smoking in 2009 after her cardiac procedures. I discussed starting steroids and Remdesivir due to her hypoxia and being covid positive, she would like to start both as she had covid pneumonia last year and received both without complications. I had a long discussion with the patient and her family regarding code status. I explained the success rate of CPR and defibrillation in the event of cardiac arrest and the low chance of success if she were to go into cardiac arrest. I also explained my concerns that if we were successful with CPR and defibrillation that her quality of life would be poor following. I also explained the low chance of her coming off a ventilator if she were to need to be intubated in the event of respiratory failure. She and her family expressed understanding but she still wishes to be a full code at this time. I explained that we would honor her wishes. She would want her to make decisions for her if she could not make them herself. Principal Diagnosis Acute on chronic resp failure with hypoxia Discharge Exam The patient is awake, alert and oriented 3, well developed and well nourished, normocephalic and atraumatic, lying in bed and in no acute distress. HEENT--PERRL, EOMI, mucous membranes and oropharynx mildly dry Neck--supple. No JVD. No bruits. Thyroid normal, trachea midline, no adenopathy. Heart--normal S1 and S2. No murmurs, rubs or gallops. Lungs--Reduced air entry on auscultation Abdomen--normal bowel sounds and soft. Mild epigastric and left sided abdominal pain Extremities--no cyanosis or clubbing. No edema. Dermatologic--normal skin turgor, normal color, no abnormal lymph nodes, no rash. Neurologic--cranial nerves II through XII grossly intact. Rheumatologic--normal range of motion. Psychiatric--normal affect. Discharge Data Allergies Allergy/AdvReac Type Severity Reaction Status Date / Time cephalexin Allergy Mild Hives Verified 01/17/23 14:21 adhesive Allergy Unknown RASH Verified 01/17/23 14:21 Penicillins Allergy Unknown HIVES WITH Verified 01/17/23 14:21 AMOXICILLIN Sulfa (Sulfonamide Allergy Unknown . Verified 01/17/23 14:21 Antibiotics) vancomycin Allergy Unknown RASH Verified 01/17/23 14:21 metoclopramide AdvReac Unknown DELIRIUM Verified 01/17/23 14:21 oxycodone AdvReac Unknown itchy TO Verified 01/17/23 14:21 ROXICET. Takes oxycodone at home. Consultations 01/17/23 13:20 ED Decision to Admit Stat 01/20/23 10:02 Consult Pulmonology Routine Hospital Course (1) Sepsis: Present on admission, secondary to lobar PNA Now resolved (2) Acute on chronic respiratory failure with hypoxia: -Admitted to the hospital on account of worsening SOB -Has a hx of COPD, on 3L of oxygen at home -Found to have COVID 19 PNA, with possible bacterial PNA -Chest x ray showed evidence of lobar consolidation suggestive of PNA -Blood cultures obtained, negative so far -We will discontinue empiric Ceftriaxone and Azithromycin -Per Pulmonology, will discontinue Remdesivir and Solumedrol (3) Elevated troponin: Myocardial infarction type 2 -Likely due to demand at this time from her acute illness and hypoxia -Patient does have multiple risk factors for ACS with previous coronary artery stenting -Continue to monitor high sensitivity trop q6h until it begins to trend down -Continue aspirin and plavix and Lovenox 40mg BID (4) COVID-19: -See acute on chronic hypoxic respiratory failure -Per pulmonology, probably an incidental finding (5) COPD (chronic obstructive pulmonary disease): -See acute on chronic hypoxic respiratory failure (6) Hypertension: -Stable -Hold amlodipine for now with soft BPs -Continue metoprolol for now (7) CAD (coronary artery disease): -Continue aspirin and plavix (8) Hypomagnesemia: -replete (9) Hyperlipemia: -Continue statin Plan d/c home Total Time Total Time Spent Total Time Spent (In Minutes): 35 Discharge Plan Discharge Items Patient Disposition: Home - Self-Care Reason For Visit: SOB, GENERALIZED WEAKNESS Discharge Diagnosis: Acute on chronic resp failure Activity: Resume your previous activity Non-emergency contact: Primary Care Provider and Tarp Repairer Call non-emergency contact if: you have any medication questions and your symptoms worsen Follow-up/Referrals: Jignesh Berman MD [Primary Care Provider] - Diet: Regular Addtl Attending Provider Instructions: please make appointment to follow up with your PCP and Tarp Repairer Pending Studies at Discharge: No Stand-Alone Forms: My [employer], Smoking Cessation Medications and DC Order Prescriptions: New lisinopril 10 mg Tablet 10 mg PO QAM 30 Days Qty: 30 0RF cefdinir 300 mg capsule 300 mg PO BID 5 Days Qty: 10 0RF Continued montelukast 10 mg tablet 10 mg PO DAILY aspirin [Adult Low Dose Aspirin] 81 mg tablet,delayed release (DR/EC) 81 mg PO DAILY magnesium oxide 400 mg (241.3 mg magnesium) tablet 400 mg PO BID albuterol sulfate [Ventolin HFA] 90 mcg/actuation HFA aerosol inhaler 2 puffs INH Q4H PRN (Reason: Shortness Of Breath Or Wheezing) furosemide 40 mg tablet 20 - 40 mg PO DAILY PRN (Reason: Edema) atorvastatin 40 mg tablet 40 mg PO HS metoprolol succinate 50 mg tablet extended release 24 hr 50 mg PO DAILY famotidine 20 mg tablet 20 mg PO BID oxycodone-acetaminophen 10-325 mg tablet 1 tab PO Q4 PRN (Reason: Pain) escitalopram oxalate 20 mg tablet 20 mg PO DAILY Atrovent HFA 17 mcg/actuation HFA aerosol inhaler 2 puff INHALATION QID pregabalin 150 mg capsule 150 mg PO TID cholecalciferol (vitamin D3) [Vitamin D3] 125 mcg (5,000 unit) Tablet 125 mcg PO DAILY Trelegy Ellipta 200-62.5-25 mcg blister with device 1 ea INHALATION DAILY clopidogrel 75 mg tablet 75 mg PO DAILY allopurinol 100 mg tablet 100 mg PO DAILY potassium chloride 20 mEq tablet,ER particles/crystals 20 meq PO DAILY meclizine 25 mg Tablet 25 mg PO TID PRN (Reason: .dizzy) budesonide-formoterol [Symbicort] 160-4.5 mcg/actuation HFA aerosol inhaler 2 puff INHALATION BID Discontinued Paxlovid (EUA) 150-100 mg tablets,dose pack 1 ea PO BID Discharge Orders: Discharge Order (Routine); Ordered 01/21/23 Ordered By: Gavin Cabello Admission Data Admit Date/Time: 01/17/23 13:19 Attending Provider: Gavin Cabello Admit Provider: Anika Caldera Primary Care Provider: Jignesh Berman Other Providers: Anika Caldera ; Cam Cho Coding Level of Care Code HOSP INP/OBS DISCH >30 MIN Diagnoses Sepsis A41.9 Acute on chronic respiratory failure with hypoxia J96.21 Elevated troponin R77.8 COVID-19 U07.1 COPD (chronic obstructive pulmonary disease) J44.9 Hypertension I10 CAD (coronary artery disease) I25.10 Hypomagnesemia E83.42 Hyperlipemia E78.5 Time Spent (min) 35
[2023-01-21] MEDS: AZITHROMYCIN 250 MG in DEXTROSE 5% 250 ML IV SCH (14:18)
--- NOTE | 2023-02-15 14:56 | Coding Query ---
To promote full compliance with coding requirements relating to patient care, provider participation is requested in all cases of croze cutter helper uncertainty. Please assist us with the question(s) below: Coding Question(s): The diagnosis(es) below was documented in the Discharge summary without being present on any prior documentation. " (1) Sepsis: Present on admission, secondary to lobar PNA Now resolved" Based on your clinical perspective, please clarify the lobar PNA as the documentation throughout the chart has multiple indications to the type of pneumonia. Physician's Response(s): PNEUMONIA ( ) COVID with pneumonia ( ) superimposed bacterial pneumonia of the right lung ( ) possible aspiration pneumonia (xx ) Other (please specify) sepsis present on admission secondary to bacterial lobar pneumonia SEPSIS ( ) due to covid (xx ) due to pneumonia ( ) Due to covid Pneumonia ( ) Other (please specify) MTDD
== END 2023-01-21 18:11 | disposition home or self-care (01) | DRG 871 ==
LOC: ED 11:04 → SUATTDRO 13:19 → 2S 13:19